=== PATIENT | female | born 1995 | race Caucasian/White ===

== ENCOUNTER → 2018-12-30 15:10 | Outpatient (CLI) | payer MEDICAID, SELFPAY ==
[2015-10-09 08:45] VITALS: BMI 25.7
[2019-01-04 15:49] LABS: HPV Reflexed? NOT INDICATED
== END ==
PROVIDERS: Visit Provider Obstetrics & Gynecology
DX: Z12.4 Encounter for screening for malignant neoplasm of cervix (principal)
CPT/HCPCS: 88175; G0145

== ENCOUNTER → 2021-04-30 17:41 | Outpatient (CLI) | payer MEDICAID, SELFPAY ==
[2021-04-08 08:26] VITALS: BMI 25.7
--- NOTE | 2021-04-30 17:41 | MRI_ITS ---
STUDY: MRI BRAIN WITH AND WITHOUT CONTRAST REASON FOR EXAM: Female, 25 years old. Migraine TECHNIQUE: Standardized multiplanar fat and water weighted pulse sequences were obtained. IV 11ml Dotarem was administered for the contrast portion of the examination. COMPARISON: 12/04/2012 FINDINGS: Normal size of the ventricles and extra-axial spaces for the patient''s age. Normal white matter tracts of the supratentorial brain. There are no white matter hyperintensities. Specifically, there are no focal areas of white matter gliosis which are occasionally associated with vasospastic migraine headaches. There is no evidence for recent intracranial ischemia or other cause of cytotoxic edema on diffusion weighted imaging (DWI). Normal T2* images of the brain without demonstrated susceptibility artifact. There is no demonstrated hemosiderin stain. Normal bilateral basal ganglia. Normal thalami. There is no extra-axial fluid accumulation. Normal flow voids within the major intracranial circulation suggesting patency by spin echo criteria. Normal venous enhancement. There is no enhancing intra-axial or extra-axial abnormality. Normal sella turcica, pituitary gland, infundibular stalk, optic chiasm and hypothalamus. Normal tectal plate and pineal gland. Normal midbrain, [place] and medulla. Normal cerebellum. Normal basal cisterns. Normal bilateral temporal bones. Normal bilateral internal auditory canals. No demonstrated orbital abnormality, within the constraints of a routine brain study. Normal visualized paranasal sinuses. Normal calvarium and skull base. Normal visualized soft tissue structures. Normal visualized upper cervical spine. MRI/Brain W/WO Contrast IMPRESSION: Normal unenhanced and enhanced MRI of the brain. Electronically Signed: Zackary Ayers MD at 22:13 EDT Tel , Service support ,
== END ==
PROVIDERS: Referring Provider Psychiatry & Neurology Neurology; Visit Provider Psychiatry & Neurology Neurology
DX: G43.909 Migraine, unspecified, not intractable, without status migrainosus (principal)
CPT/HCPCS: 70553; A9575

== ENCOUNTER → 2021-06-07 14:17 | Outpatient (CLI) | payer MEDICAID, SELFPAY ==
[2021-06-07 17:45] LABS: AST(SGOT) 15 U/L (15-37); Alanine Aminotransfer ALT/SGPT 17 U/L (13-56); Albumin, Serum 3.8 g/dL (3.2-5.0); Alkaline Phosphatase 48 U/L (45-117); Anion Gap 6 (5-15); BUN 12 mg/dL (7-18); BUN/Creat Ratio 15.9 RATIO (10-20); Calcium,Total 9.5 mg/dL (8.5-10.1); Chloride 105 mmol/L (98-107); Creatinine, Serum 0.76 mg/dL (0.55-1.02); EST Glomerular Filtration Rate 98 mL/min (>60); Est Glom Filt Rate - Afr Amer 118 mL/min (>60); Glucose 78 mg/dL (74-106); Potassium 3.8 mmol/L (3.5-5.1); Protein, Total 7.8 g/dL (6.4-8.2); Sodium Level 140 mmol/L (136-145)
== END ==
PROVIDERS: Referring Provider Nurse Practitioner Family; Visit Provider Nurse Practitioner Family
DX: G43.009 Migraine without aura, not intractable, without status migrainosus (principal)
CPT/HCPCS: 36415; 80053

== ENCOUNTER → 2022-08-05 | Outpatient (CLI) | payer MEDICAID, SELFPAY ==
[2022-08-08 04:07] LABS: Chlamydia By Nucleic Acid AMP Negative (Negative)
[2022-08-10 15:31] LABS: Gonococcus By Nucleic Acid AMP Negative (Negative)
[2022-08-14 16:22] LABS: HPV Reflexed? NOT INDICATED
== END | disposition home or self-care (01) ==
LOC: LABSPEC 16:37
PROVIDERS: Visit Provider Student in an Organized Health Care Education/Training Program
DX: Z11.3 Encounter for screening for infections with a predominantly sexual mode of transmission (principal); Z12.4 Encounter for screening for malignant neoplasm of cervix
CPT/HCPCS: 87491; 87591; 88175; G0145

== ENCOUNTER → 2022-11-21 | Outpatient (CLI) | payer MEDICAID, SELFPAY ==
[2022-11-21 15:46] LABS: Absolute Lymphocyte Count 1.88 X10^3/uL (0.83-4.51); Basophil# 0.03 X10^3/uL; Basophil% 0.4 % (0-1); Eosinophil# 0.02 X10^3/uL; Eosinophils% 0.3 % (0-5); Hematocrit 34.4 % (37-47); Hemoglobin 11.6 g/dL (12.0-15.0); Lymphocyte # 1.88 X10^3/ul (0.83-4.51); Lymphocyte % 25.3 % (19-41); Mean Corp Hgb Conc 33.7 g/dL (32-36); Monocyte# 0.43 X10^3/uL; Monocyte% 5.8 % (0-10); NRBC Flagged by Analyzer 0 % (0-5); Neutrophil # 5.02 X10^3/uL (2.7-7.7); Neutrophil % 67.7 % (47-70); Platelet Count 315 K/mm3 (150-450); RBC Distribution Width CV 12.6 % (11.6-14.6); White Blood Count 7.4 K/mm3 (4.4-11.0)
[2022-11-21 16:58] LABS: HIV - WCH Non-Reactive (Nonreactive); Hepatitis B Surface Antigen Non-Reactive (Nonreactive); Hepatitis C Antibody Non-Reactive (Nonreactive); Rubella IgG Reactive (Nonreactive); Syphilis Antibodies Non-reactive
[2022-11-23 11:18] LABS: V-Zoster IgG (Immunity) 192 index (Immune >165)
== END | disposition home or self-care (01) ==
LOC: WOBLAB 14:42
PROVIDERS: Visit Provider Student in an Organized Health Care Education/Training Program
DX: Z34.81 Encounter for supervision of other normal pregnancy, first trimester (principal)
CPT/HCPCS: 36415; 85025; 86703; 86762; 86780; 86787; 86803; 87086; 87340

== ENCOUNTER 2023-01-12 12:34 | Emergency (ER) | payer MEDICAID, SELFPAY ==
[2023-01-12 12:34] VITALS: BP 116/80; PULSE 103; RESP 16; TEMP 36.4; O2SAT 99; BMI 24.1
--- NOTE | 2023-01-12 14:14 | EDS_ITS ---
HPI History of Present Illness Chief Complaint: Shortness of Breath Informant: patient Onset/Context/Timing Onset: Days Context: gradual Timing: Continuous Quality: Positive for Dyspnea on exertion; Negative for PND Current Severity: Mild Maximum Severity: Mild Worsened by: Exertion and Coughing Relieved by: Rest Associated Symptoms cough and green sputum Chest Pain: Positive for None Narrative Narrative: 27-year-old female male G2, P1 Ab0 about a week 18 weeks due June 11. States she has had exertional shortness of breath with a cough of green sputum since Thursday. She denies any chest pain. No hemoptysis. No calf pain. She has trace edema both feet bilaterally. No hemoptysis. No history of DVT or PE. No recent travel, surgery or immobilization. PE Risk Factors: Negative for Cancer, OCP + Smoking + > 35, Prior DVT or PE, Recent immobilization, Recent surgery or Recent travel Prior similar symptoms: No Recent Illness/Hospitalization: No PFSH PFSH Medical History Acid reflux Asthma Benign paroxysmal positional vertigo Frequent headaches High cholesterol Migraine Home Medications ondansetron HCl 4 mg tablet 4 mg PO TID PRN nausea and vomiting #90 tabs 05/22/22 [Rx Last Taken Unknown] famotidine 20 mg tablet 20 mg PO BID 01/12/23 [History Last Taken Unknown] Allergy/AdvReac Type Severity Reaction Status Date / Time No Known Allergies Allergy Verified 01/12/23 12:37 Family History Mother Anxiety Depression Father Drug abuse Social History Smoking Status: Former smoker how long ago did patient quit smokin alcohol intake: never substance use type: does not use what type of physical activity do you participate in: walking and running frequency: 5-6 times per week gwen/lutheran: None seatbelt use: always ROS ROS ED ROS Narrative Shortness of breath. Cough. Review of Systems ROS Unobtainable: Denies due to encephalopathy Constitutional Constitutional ED: Denies chills or fever(s) Eyes Eyes: Denies blurry vision ENT ENT ED: Denies ear pain or rhinorrhea Cardiovascular Cardiovascular: Denies chest pain, orthopnea, palpitations or paroxysmal nocturnal dyspnea Respiratory/Chest Respiratory/Chest: Reports cough, dyspnea, dyspnea on exertion and sputum; Denies orthopnea or paroxysmal nocturnal dyspnea Gastrointestinal Gastrointestinal: Denies abdominal pain Genitourinary Genitourinary ED: Denies dysuria or hematuria Musculoskeletal Musculoskeletal: Denies arthralgias Integumentary Denies abscess Neurologic Neurologic: Denies headache(s) Psychiatric Psychiatric: Denies anxiety Endocrine Endocrinology: Denies cold intolerance Hematologic/Lymphatic Hematologic/Lymphatic: Denies easy bleeding Allergic/Immunologic Allergic/Immunologic ED: Denies mouth swelling or tongue swelling EXAM Physical Exam Narrative Exam Narrative: 27-year-old female no acute distress vital signs stable afebrile. Pulse ox 99% on room air no signs hypoxia. She is resting in bed appears comfortable. H EENT exam unremarkable. Neck nontender JVD. Lungs clear to auscultation. Heart regular rhythm rate about 100 no murmur. Abdomen soft nontender gravid uterus. Moving all 4 extremities. Calves nontender without edema or cords. Neurologically she is awake alert with no focal motor deficits benign exam Const Vital Signs: 01/12/23 12:34 01/12/23 14:15 01/12/23 15:30 Temperature 97.5 F L Temperature Source Temporal Pulse Rate 103 H Respiratory Rate 16 Respiratory Effort Normal Non-Labored Respiratory Depth Normal Respiratory Pattern Normal Blood Pressure 116/80 Blood Pressure Mean 92 Pulse Ox 99 Oxygen Delivery Method Room Air Room Air Room Air Positive well nourished and well developed; Negative for cachectic, contractures or unkempt General Appearance ED: well developed and NAD; Negative for unkempt, cachectic, contractures or pallor Nutritional Appearance: Negative for cachectic HEENT Reports moist mucous membranes atraumatic; Negative for trauma or tenderness Eyes PERRL and EOMs intact bilaterally General Eye ED: Negative for pale conjunctiva, scleral icterus or other Neck no lymphadenopathy, supple, no meningeal signs and no JVD General: Negative for tenderness Lymph Lymphatic: Negative for other Chest Wall Chest: Negative for other Resp normal respiratory effort and clear to auscultation bilaterally Effort and Inspection: Negative for pain with movement Auscultation: Negative for rales, rhonchi or wheezes Cardio regular rate, regular rhythm, S1 normal heart sound, S2 normal heart sound and no murmurs Rate: Negative for bradycardia or tachycardic Rhythm: Negative for abnormal rhythm GI non-tender, non-distended and no masses Inspection: Negative for other Auscultation: normoactive bowel sounds Palpation: soft; Negative for tender or guarding Back/Spine no CVA tenderness General Back: Negative for CVA tenderness or tenderness Extremity normal to inspection General Extremety ED: Negative for edema or tenderness General Extremity: Negative for edema Neuro oriented x3 and CN's II-XII intact bilaterally Sensorium / Orientation: alert, oriented to person, oriented to place and oriented to time; Negative for orientation impaired, confused, lethargic or stuporous Speech: speech normal Motor Exam: strength 5/5 throughout Psych mental status grossly normal Appearance: Negative for unkempt Attitude: No agitated Mood & Affect: Negative for depressed Thought Process: normal thought process Skin no wounds and skin turgor normal General Skin Exam: Negative for jaundice or pallor Lesions: no lesions Rashes: no rashes Trauma: Negative for abrasion or laceration MDM MDM MDM Narrative Medical decision making narrative: 27-year-old female with exertional shortness of breath. This may be from anemia of . Could be from a URI with a cough and green sputum. Clinically does not appear to be a DVT or PE but she does have risk factors due to her . She undergo a cardiac work-up and depending on the test results to determine further testing. I suspect she will be able to be discharged home. Clinically I do not suspect this to be cardiac in a very low suspicion for PE. Repeat exam patient doing well at 4:40 PM. We went over all of her test results. She is anemia . It may be causing her shortness of breath along with a viral URI. She has no pneumonia. No PE. No signs of this being cardiac in etiology. She will be discharged home with outpatient follow-up with [facility] TECHNICIAN. History & Record Review Discussion w/independent historian: Patient Additional record(s) reviewed:: Prior inpatient record, Prior outpatient record, Prior ED visit and Prior labs Lab Data Attestation: I reviewed the patient's lab results. Lab results narrative: CBC shows white count 5.8. H&H 10.1 and 31.3 which is most likely anemia associated with the . Platelets 249. Electrolytes show a gap of 6 normal BUN and creatinine. Glucose of 83. Her D-dimer is elevated 1.77. For that reason a CTA of her chest to be obtained. Chest x-ray is unremarkable. EKG is a sinus rhythm rate 84 with no acute abnormalities. Labs: Laboratory Results - last 24 hr 01/12/23 01/12/23 01/12/23 14:30 14:30 14:30 WBC 5.8 RBC 3.50 L Hgb 10.1 L Hct 31.3 L MCV 89.4 MCH 28.9 MCHC 32.3 RDW Std Deviation 45.2 H RDW Coeff of Yahaira 13.9 Plt Count 249 MPV 9.5 Immature Gran % (Auto) 0.500 Neut % (Auto) 67.2 Lymph % (Auto) 25.9 [place] % (Auto) 5.8 Eos % (Auto) 0.3 Baso % (Auto) 0.3 Absolute Neuts (auto) 3.9 Absolute Lymphs (auto) 1.51 Nucleated RBC % 0 D-Dimer Quant (PE/DVT) 1.77 H* Sodium 138 Potassium 4.0 Chloride 107 Carbon Dioxide 25.0 Anion Gap 6 BUN 8 Creatinine 0.49 L Estim Creat Clear Calc 135.19 Est GFR (MDRD) Af Amer 191 Est GFR (MDRD) Non-Af 158 BUN/Creatinine Ratio 16.2 Glucose 83 Calcium 9.1 Radiography Chest X-Ray - ED: 1 View, Read by ED Physician, Read by Radiologist, Heart, Lungs, Mediastinum, Bony Structures, No Acute Disease and Chronic Changes Diagnostic Testing: Clinical Impression(s) from Imaging Studies Chest X-Ray 01/12/23 14:35 IMPRESSION: No radiographic evidence of acute cardiopulmonary disease. Electronically Signed: Gerardo Hannah MD at 14:48 EDT , Chest CTA 01/12/23 15:23 IMPRESSION: Negative CTA chest. Electronically Signed: Gerardo Hannah MD at 16:16 EDT , Chest x-ray, portable, single view interpreted both by myself and the radiologist shows no acute abnormality. Normal cardiac silhouette. Normal mediastinum. Normal lung steinberg. CTA chest negative. Rhythm Strip Rhythm Strip: Sinus Rhythm Rate: 84 Ectopy: None EKG Initial EKG: Attestation: I personally reviewed and interpreted this EKG as follows: Interpretation: Sinus Rhythm and No Acute Injury Pattern Comments: Normal sinus rhythm rate 84 no acute signs of NV or ischemia. Prior EKG tracings: not available for review Discharge Plan Triage Chief Complaint: Shortness of Breath ED Provider: Andrés Jacob Dx/Rx/DC Orders Clinical Impression: Acute dyspnea, Anemia during , Second trimester , Viral URI Instructions: Anemia During , ED Dyspnea, ED URI, Viral, No Abx (Adult) Prescriptions: No Action ondansetron HCl 4 mg tablet 4 mg PO TID PRN (Reason: nausea and vomiting) Qty: 90 0RF famotidine 20 mg tablet 20 mg PO BID Label Comments: TAKE 1 TABLET BY MOUTH TWICE A DAY Primary Care Provider: Care Physician,No Primary Referrals: Mariah Prajapati DO [Med Staff - Active Staff] - 1 Week if not improving Care Physician,No Primary [Primary Care Provider] - Activity Restrictions/Additional Instructions: Urine Shortness of breath is most likely from a viral respiratory infection along with . Her anemia from being secondary menstrual is not that bad with a hemoglobin 10.1. Follow-up with your [facility] TECHNICIAN as scheduled as needed. There is no blood clot and no pneumonia. Disposition Disposition: Home, Self Care
--- NOTE | 2023-01-12 14:15 | EKG12_ITS ---
Test Reason : SOB Blood Pressure : / mmHG Vent. Rate : 084 BPM Atrial Rate : 084 BPM P-R Int : 154 ms QRS Dur : 076 ms QT Int : 390 ms P-R-T Axes : 049 053 022 degrees QTc Int : 460 ms Normal sinus rhythm Normal ECG Confirmed by ABISAI ALVARADO, GINGER ([id number]), commissioning editor REFUGIO CHO ([id number]) on 01/14/2023 2:09:41 PM Referred By: Confirmed By:GINGER BARONE MD
--- NOTE | 2023-01-12 14:35 | RAD_ITS ---
EXAM: XR CHEST, 1 VIEW CLINICAL INDICATION: . Please shield abd preganant HARD TO BREATHE SINCE THURSDAY , PT IS PREG TECHNIQUE: Frontal view of the chest. COMPARISON: No relevant prior studies available. FINDINGS: LUNGS AND PLEURAL SPACES: Unremarkable. No consolidation or edema. No pneumothorax. No effusion. HEART: Unremarkable. Cardiac silhouette not enlarged. MEDIASTINUM: Central airways and mediastinal contour are unremarkable. BONES/JOINTS: Unremarkable. SOFT TISSUES: Unremarkable. RAD/Chest 1 View (Portable) IMPRESSION: No radiographic evidence of acute cardiopulmonary disease. Electronically Signed: Gerardo Hannah MD at 14:48 EDT ,
[2023-01-12 14:39] LABS: Absolute Lymphocyte Count 1.51 X10^3/uL (0.83-4.51); Absolute Neutrophil Count 3.9 X10^3/uL (2.0-7.7); Basophil# 0.02 X10^3/uL; Basophil% 0.3 % (0-1); Eosinophil# 0.02 X10^3/uL; Eosinophils% 0.3 % (0-5); Hematocrit 31.3 % (37-47); Hemoglobin 10.1 g/dL (12.0-15.0); Lymphocyte # 1.51 X10^3/ul (0.83-4.51); Lymphocyte % 25.9 % (19-41); Mean Corp Hgb Conc 32.3 g/dL (32-36); Mean Corpuscular Hgb 28.9 pg (27.0-32.0); Mean Corpuscular Volume 89.4 fL (81-99); Mean Platelet Vol. 9.5 fl (6.2-12.0); Monocyte# 0.34 X10^3/uL; Monocyte% 5.8 % (0-10); NRBC Flagged by Analyzer 0 % (0-5); Neutrophil % 67.2 % (47-70); Platelet Count 249 K/mm3 (150-450); RBC Distribution Width CV 13.9 % (11.6-14.6); RBC Distribution Width SD 45.2 fl (35.1-43.9); White Blood Count 5.8 K/mm3 (4.4-11.0)
[2023-01-12 14:52] LABS: Anion Gap 6 (5-15); BUN 8 mg/dL (7-18); BUN/Creat Ratio 16.2 RATIO (10-20); Calcium,Total 9.1 mg/dL (8.5-10.1); Chloride 107 mmol/L (98-107); Creatinine, Serum 0.49 mg/dL (0.55-1.02); EST Glomerular Filtration Rate 158 mL/min (>60); Est Glom Filt Rate - Afr Amer 191 mL/min (>60); Estimated Creatinine Clearance 135.19 ml/min; Glucose 83 mg/dL (74-106); Sodium Level 138 mmol/L (136-145)
[2023-01-12 15:00] LABS: D-Dimer Quantitative (DVT/PE) 1.77 FEU/ug/m (0.27-0.49)
--- NOTE | 2023-01-12 15:23 | CT_ITS ---
EXAM: CT ANGIOGRAPHY CHEST WITHOUT AND WITH INTRAVENOUS CONTRAST CLINICAL INDICATION: dyspnea. elevated d-dimer. at 18 weeks. TECHNIQUE: Helically acquired angiography images were obtained of the chest without and with intravenous contrast. This CT exam was performed using one or more of the following dose reduction techniques: automated exposure control, adjustment of the mA and/or kV according to patient size, and/or use of iterative reconstruction technique. MIP reconstructed images were created and reviewed. CONTRAST: IV 75mL [id number]-370 RADIATION DOSE: CTDIvol = 7.11 mGy, DLP = 204.06 mGy-cm COMPARISON: No relevant prior studies available. FINDINGS: PULMONARY ARTERIES: Unremarkable. Normal in caliber. No evidence of pulmonary embolism. AORTA: Unremarkable. Normal in caliber. No evidence of dissection. GREAT VESSELS OF AORTIC ARCH: Unremarkable. Normal in caliber. No evidence of dissection. LUNGS AND PLEURAL SPACES: Unremarkable. No mass. No consolidation or edema. No pleural effusion or thickening. No pneumothorax. HEART: Unremarkable. Heart size is normal. No pericardial effusion. No significant coronary artery calcifications. MEDIASTINUM: Unremarkable. No mediastinal or hilar adenopathy. Esophagus is unremarkable. No hiatal hernia. THYROID: Unremarkable. No thyroid lesions. BONES/JOINTS: Unremarkable. No suspicious lytic or blastic abnormality. CT/CTA Chest W/WO Contrast IMPRESSION: Negative CTA chest. Electronically Signed: Gerardo Hannah MD at 16:16 EDT ,
[2023-01-12 16:20] VITALS: PULSE 86; RESP 17; O2SAT 100
--- NOTE | 2023-01-12 16:31 | CM.ED ---
Social Work Note Referral Source: case find Referral Reason: no PCP SW met with patient and introduced herself and role as [facility] Child Advocate. Patient lying on hospital bed and agreeable to speak with SW with guest present. SW inquired about patient's insurance and current PCP. Patient verified insurance and reports no current PCP. SW provided patient with a list of local PCPs in network with patient's insurance and accepting new patients. Patient was receptive towards list and voiced no other needs. SW remains available if needs arise. Aurelia Holly EGGS INSPECTOR, MAGAN
== END 2023-01-12 16:55 | disposition home or self-care (01) ==
PROVIDERS: Emergency Provider Emergency Medicine; Visit Provider Emergency Medicine
DX: O99.512 Diseases of the respiratory system complicating pregnancy, second trimester (principal); Z87.891 Personal history of nicotine dependence; E78.00 Pure hypercholesterolemia, unspecified; J06.9 Acute upper respiratory infection, unspecified; J45.909 Unspecified asthma, uncomplicated; O99.280 Endocrine, nutritional and metabolic diseases complicating pregnancy, unspecified trimester; O99.012 Anemia complicating pregnancy, second trimester; Z3A.18 18 weeks gestation of pregnancy
CPT/HCPCS: 71045; 71275; 80048; 85025; 85379; 93005; 99283; Q9967; A4216

== ENCOUNTER 2023-11-01 18:30 | Emergency (ER) | payer MEDICAID, SELFPAY ==
[2023-11-01 18:31] VITALS: BP 125/83; PULSE 91; RESP 20; TEMP 37; O2SAT 97; BMI 24.6
--- NOTE | 2023-11-01 18:53 | EDS_ITS ---
HPI History of Present Illness Chief Complaint: Chest Other Informant: patient Narrative Narrative: 28-year-old female presenting to the emergency room for chest pain. Patient states that last Thursday she began to not feel well and by Thursday had fever. She went to an urgent care on Thursday was told she had a viral infection. She returned on with continued fever and not feeling well. She states that she tested positive for influenza B was placed on Augmentin for nasal swelling . She states she has had some nausea but now has developed pain lower bilateral chest into the back that is worse with movement cough and deep breathing. She states that she takes control but is not a smoker. No recent surgeries trips or known clotting disorders. No prior DVT or PE. She notes some phlegm production with cough but states occasionally feels like it may come from the chest but also from the upper airway. [facility] Medical History Acid reflux Asthma Benign paroxysmal positional vertigo De Quervain's tenosynovitis, right Frequent headaches High cholesterol Migraine Right carpal tunnel syndrome Home Medications amoxicillin 875 mg-potassium clavulanate 125 mg tablet 1 tab PO BID 11/01/23 [History Last Taken Unknown] norgestimate 0.25 mg-ethinyl estradiol 35 mcg tablet (Sprintec (28)) 1 tab PO DAILY 11/01/23 [History Last Taken Unknown] Allergy/AdvReac Type Severity Reaction Status Date / Time No Known Allergies Allergy Verified 11/01/23 18:31 Family History Mother Anxiety Depression Father Drug abuse Social History Smoking Status: Former smoker how long ago did patient quit smokin alcohol intake: never substance use type: does not use what type of physical activity do you participate in: walking and running frequency: 5-6 times per week gwen/religious: None seatbelt use: always ROS ROS ED Constitutional Constitutional ED: Reports chills and fever(s); Denies weight loss Eyes Eyes: Denies change in vision or diplopia ENT ENT ED: Reports rhinorrhea and other Details: Nasal congestion ; Denies ear pain or sore throat Cardiovascular Cardiovascular: Reports chest pain; Denies orthopnea, palpitations or racing heartbeat Respiratory/Chest Respiratory/Chest: Reports cough; Denies dyspnea or orthopnea Gastrointestinal Gastrointestinal: Denies abdominal pain, diarrhea, nausea or vomiting Genitourinary Genitourinary ED: Denies dysuria, hematuria or urinary frequency Musculoskeletal Musculoskeletal: Reports arthralgias; Denies myalgias Integumentary Denies abscess or rash Neurologic Neurologic: Denies headache(s) or weakness Psychiatric Psychiatric: Denies anxiety, depression, suicidal ideation or suicidal thoughts Endocrine Endocrinology: Denies polydipsia, polyphagia or polyuria Allergic/Immunologic Allergic/Immunologic ED: Denies mouth swelling, tongue swelling or urticaria EXAM Physical Exam Const Vital Signs: 11/01/23 18:31 11/01/23 19:16 11/01/23 19:39 Temperature 98.6 F Temperature Source Temporal Pulse Rate 91 89 Respiratory Rate 20 H 14 Respiratory Effort Normal Non-Labored Respiratory Depth Normal Respiratory Pattern Normal Blood Pressure 125/83 H 127/83 H Blood Pressure Mean 97 97 Pulse Ox 97 98 Oxygen Delivery Method Room Air Room Air Positive well nourished and well developed General Appearance ED: well developed HEENT Reports normocephalic, head/scalp atraumatic and moist mucous membranes HEENT Narrative: Bifurcated uvula no oropharyngeal erythema. No evidence of peritonsillar or retropharyngeal abscess. Eyes PERRL and EOMs intact bilaterally Neck no lymphadenopathy, supple and no JVD Resp normal respiratory effort and clear to auscultation bilaterally Cardio regular rate, regular rhythm and no murmurs GI normal to inspection, nondistended, normoactive bowel sounds and non-tender Palpation: soft Back/Spine no CVA tenderness and normal ROM Extremity normal to inspection General Extremety ED: Negative for edema General Extremity: Negative for edema Neuro oriented x3 and CN's II-XII intact bilaterally Sensorium / Orientation: alert Motor Exam: strength 5/5 throughout Psych mental status grossly normal Mood & Affect: Negative for depressed or tearful Skin no rashes or lesions noted and no wounds MDM MDM MDM Narrative Medical decision making narrative: Patient's D-dimer was obtained given her pleuritic chest pain. This returns positive at 1.21. Therefore a CTA of the chest was obtained which does not demonstrate pulmonary embolism or dissection. Clinically the patient has tested positive for influenza B and I think she most likely has some pleurisy versus chest wall strain from coughing. Recommend continued hydration Tylenol and/or Motrin. Return if worsening or concerns History & Record Review Discussion w/independent historian: Patient Lab Data Attestation: I reviewed the patient's lab results. Labs: Laboratory Results - last 24 hr 11/01/23 19:05 D-Dimer Quant (PE/DVT) 1.21 H* Radiography Diagnostic Testing: Clinical Impression(s) from Imaging Studies Chest CTA 11/01/23 19:47 IMPRESSION: (NOT LISTED IN ORDER OF SIGNIFICANCE) No demonstrated pulmonary embolism or arterial dissection. Electronically Signed: Gerardo Hannah MD at 20:57 EDT , Discharge Plan Triage Chief Complaint: Chest Other Other Complaint: Shortness of Breath ED Provider: Isacc Barr Dx/Rx/DC Orders Clinical Impression: Influenza B, Chest pain Instructions: The Flu (Influenza), ED Pleurisy Prescriptions: No Action norgestimate-ethinyl estradiol [Sprintec (28)] 0.25-35 mg-mcg tablet 1 tab PO DAILY amoxicillin-pot clavulanate 875-125 mg tablet 1 tab PO BID Primary Care Provider: Care Physician,No Primary Referrals: Care Physician,No Primary [Primary Care Provider] - Activity Restrictions/Additional Instructions: Drink plenty of fluids to stay hydrated. Tylenol and/or Motrin to control pain and fever. Continue to monitor breathing return if worsening or any concerns Disposition Disposition: Home, Self Care
--- OUTSIDE RECORDS SUMMARY | 2023-11-01 19:17 | XMS RPT_ITS | CCD ---
Author Name Unknown Address [facility] [address] [place] [address] Organization [facility] Care Team Providers Care Mimeographer Name Role Phone LISA CISNEROS, EMILIANO Primary Care Physician Krystle Manriquez CNP Primary Care Provider Krystle Manriquez CNP Primary Care Provider Krystle Manriquez CNP Primary Care Provider ASHKAN WALTERS MD Admitting Unavailable LISA CISNEROS [facility] Primary Care ASHKAN Mazariegos MD Attending Unavailable ASHKAN WALTERS MD Attending Unavailable LISA CISNEROS, [facility] Primary Care Christy CISNEROS, [facility] Primary Care ASHKAN Mazariegos MD Attending Unavailable LISA CISNEROS, [facility] Primary Care ASHKAN Mazariegos MD Consulting Unavailable ASHKAN WALTERS MD Attending Unavailable ASHKAN WALTERS MD Attending Unavailable LISA CISNEROS, [facility] Primary [facility] ASHKAN Mazariegos MD Consulting Unavailable KRYSTLE MANRIQUEZ [facility] Primary [facility] Un[facility] Primary [facility] Primary [facility] Unavailable Medications Current Medications Medication Drug Class(es) Dates Sig (Normalized) Sig (Original) acetaminophen 325 mg / HYDROcodone bitartrate 5 mg oral tablet (1 source) Opioid Agonist Start: 10-19-2021 End: 10-21-2021 take 1 tablet by mouth every six hours as needed for pain [place] 325- 5 mg oral tablet Dose = 1 tab(s), Oral, q6h, PRN as needed for pain, # 10 tab(s), 0 Refill(s), Cephalgia, 56.8 Start Date: 10/19/21 Stop Date: 10/21/21 Status: Ordered amoxicillin 500 mg oral capsule (2 sources) Penicillin-class Antibacterial Start: 10-05-2023 End: 10-15-2023 take 1 capsule by mouth twice daily amoxicillin (AMOXIL) 500 mg capsule Take 1 capsule by mouth two times a day for 10 days. 20 capsule 0 10/05/2023 10/15/2023 Active Completed/Discontinued Medications Medication Drug Class(es) Dates Sig (Normalized) Sig (Original) [id number] 200 actuat albuterol 0.09 mg/actuat metered dose inhaler (2 sources) beta2-Adrenergic Agonist Start: 10-21-2021 End: 10-22-2022 take 2 puff(s) by inhalation every four hours as needed for wheezing albuterol HFA (PROVENTIL HFA, VENTOLIN HFA) 90 mcg/actuation inhaler Indications: Wheezing Inhale 2 Puffs as instructed every 4 hours as needed for wheezing/shortness of breath. 1 Inhaler 0 10/21/2021 10/22/2022 Discontinued Problems Active Problems Problem Classification Problem Date Documented Da te Episodic/Chronic Fever of unknown origin (1 source) Fever; Translations: [Fever, unspecified] 10-31-2023 Episodic Headache; including migraine (4 sources) Migraine 12-14-2013 Chronic Headache; including migraine (1 source) Headache; Translations: [Headache, unspecified] Onset: 10-19-2021 Episodic Mood disorders (5 sources) Depression 12-14-2013 Chronic Noninfectious gastroenteritis (1 source) Gastroenteritis; Translations: [Noninfective gastroenteritis and colitis, unspecified] Episodic Other gastrointestinal disorders (1 source) Diarrhea; Translations: [Diarrhea, unspecified] Onset: 08-17-2021 Episodic Other and delivery including normal (7 sources) ; Translations: [Second trimester ] Onset: 11-22-2022 03-16-2023 Episodic Other upper respiratory infections (2 sources) Chronic sinusitis, unspecified; Translations: [Unspecified sinusitis (chronic)] 07-23-2023 Chronic Other upper respiratory infections (6 sources) Acute upper respiratory infection; Translations: [Acute upper respiratory infection, unspecified] Episodic Otitis media and related conditions (1 source) Otitis media of bilateral ears; Translations: [Otitis media, unspecified, bilateral] Episodic Past or Other Problems Problem Classification Problem Date Documented Da te Episodic/Chronic NEGATED: Highlighted row has been ruled out!Unclassified (2 sources) No known active problems 05-23-2021 Results Test Name Value Interpretation Reference Range Facil ity Vital Signs Date Time Vital Sign Value Performing Clinician Facility 10-31-2023 08:48-0500 Body temperature 98.4 [degF] Luna Praisler-Wood PARAMEDIC SUPERVISOR.COMPUTER SECURITY MANAGER Work Phone: [facility] 10-31-2023 08:48-0500 Body weight 62.8 kg Luna Praisler-Wood PARAMEDIC SUPERVISOR.COMPUTER SECURITY MANAGER Work Phone: [facility] 10-31-2023 08:48-0500 Diastolic blood pressure 64 mm[Hg] Luna Praisler-Wood PARAMEDIC SUPERVISOR.COMPUTER SECURITY MANAGER Work Phone: [facility] 10-31-2023 08:48-0500 Heart rate 102 /min Luna Praisler-Wood PARAMEDIC SUPERVISOR.COMPUTER SECURITY MANAGER Work Phone: [facility] 10-31-2023 08:48-0500 Respiratory rate 18 /min Luna Praisler-Wood PARAMEDIC SUPERVISOR.COMPUTER SECURITY MANAGER Work Phone: [facility] 10-31-2023 08:48-0500 SaO2% (BldA) [Mass fraction] 98 % Luna Praisler-Wood PARAMEDIC SUPERVISOR.COMPUTER SECURITY MANAGER Work Phone: [facility] 10-31-2023 08:48-0500 Systolic blood pressure 108 mm[Hg] Luna Praisler-Wood PARAMEDIC SUPERVISOR.COMPUTER SECURITY MANAGER Work Phone: [facility] 10-05-2023 09:15-0500 Body temperature 98.71 [degF] Kwaku Patel PA Work Phone: [facility] 10-05-2023 09:15-0500 Body weight 63.5 kg Kwaku VERGARA Work Phone: [facility] 10-05-2023 09:15-0500 Diastolic blood pressure 78 mm[Hg] Krislyn Aberegg PA Work Phone: [facility] 10-05-2023 09:15-0500 Heart rate 85 /min Krislyn Aberegg PA Work Phone: [facility] 10-05-2023 09:15-0500 Respiratory rate 21 /min Krislyn Aberegg PA Work Phone: [facility] 10-05-2023 09:15-0500 SaO2% (BldA) [Mass fraction] 98 % Krislyn Aberegg PA Work Phone: [facility] 10-05-2023 09:15-0500 Systolic blood pressure 104 mm[Hg] Krislyn Aberegg PA Work Phone: [facility] 07-23-2023 12:07-0500 Body temperature 98.2 [degF] Mikki Kramer PARAMEDIC SUPERVISOR.COMPUTER SECURITY MANAGER Work Phone: [facility] 07-23-2023 12:07-0500 Body weight 64.68 kg Mikki Kramer PARAMEDIC SUPERVISOR.COMPUTER SECURITY MANAGER Work Phone: [facility] 07-23-2023 12:07-0500 Diastolic blood pressure 77 mm[Hg] Mikki Kramer PARAMEDIC SUPERVISOR.COMPUTER SECURITY MANAGER Work Phone: [facility] 07-23-2023 12:07-0500 Heart rate 85 /min Mikki Kramer PARAMEDIC SUPERVISOR.COMPUTER SECURITY MANAGER Work Phone: [facility] 07-23-2023 12:07-0500 Respiratory rate 18 /min Mikki Kramer PARAMEDIC SUPERVISOR.COMPUTER SECURITY MANAGER Work Phone: [facility] 07-23-2023 12:07-0500 SaO2% (BldA) [Mass fraction] 96 % Mikki Kramer PARAMEDIC SUPERVISOR.COMPUTER SECURITY MANAGER Work Phone: [facility] 07-23-2023 12:07-0500 Systolic blood pressure 112 mm[Hg] Mikki Kramer PARAMEDIC SUPERVISOR.COMPUTER SECURITY MANAGER Work Phone: [facility] 06-05-2023 08:38-0400 Body temperature 98.78 [degF] ASHKAN WALTERS MD [facility] 06-05-2023 08:38-0400 Diastolic Blood Pressure Non-Invasive 64 1 ASHKAN WALTERS MD [facility] 06-05-2023 08:38-0400 Heart rate 93 /min ASHKAN WALTERS MD [facility] 06-05-2023 08:38-0400 Respiratory rate 16 /min ASHKAN WALTERS MD [facility] 06-05-2023 08:38-0400 Systolic Blood Pressure Non-Invasive 105 1 ASHKAN WALTERS MD [facility] 06-04-2023 23:41-0400 Body temperature 97.88 [degF] ASHKAN WALTERS MD [facility] 06-04-2023 23:41-0400 Diastolic Blood Pressure Non-Invasive 70 1 ASHKAN WALTERS MD [facility] 06-04-2023 23:41-0400 Heart rate 82 /min ASHKAN WALTERS MD [facility] 06-04-2023 23:41-0400 Respiratory rate 18 /min ASHKAN WALTERS MD [facility] 06-04-2023 23:41-0400 Systolic Blood Pressure Non-Invasive 107 1 ASHKAN WALTERS MD [facility] 06-04-2023 20:21-0400 Body temperature 98.78 [degF] ASHKAN WALTERS MD [facility] 06-04-2023 16:03-0400 Diastolic Blood Pressure Non-Invasive 74 1 ASHKAN WALTERS MD [facility] 06-04-2023 16:03-0400 Heart rate 83 /min ASHKAN WALTERS MD [facility] 06-04-2023 16:03-0400 Respiratory rate 16 /min ASHKAN WALTERS MD [facility] 06-04-2023 16:03-0400 Systolic Blood Pressure Non-Invasive 125 1 ASHKAN WALTERS MD [facility] 06-04-2023 06:04-0400 Body height 155 cm ASHKAN WALTERS MD [facility] 06-04-2023 06:04-0400 Body weight 72.7 kg ASHKAN WALTERS MD [facility] 06-04-2023 06:04-0400 Body weight 30.26 kg/m2 ASHKAN WALTERS MD [facility] 04-23-2023 08:48-0400 Body temperature 98.01 [degF] Qunin Pendlebury PARAMEDIC SUPERVISOR.COMPUTER SECURITY MANAGER Work Phone: [facility] 04-23-2023 08:48-0400 Body weight 73.57 kg Quinn John PARAMEDIC SUPERVISOR.COMPUTER SECURITY MANAGER Work Phone: [facility] 04-23-2023 08:48-0400 Diastolic blood pressure 76 mm[Hg] Quinn Pendlebury PARAMEDIC SUPERVISOR.COMPUTER SECURITY MANAGER Work Phone: [facility] 04-23-2023 08:48-0400 Heart rate 108 /min Quinn John PARAMEDIC SUPERVISOR.COMPUTER SECURITY MANAGER Work Phone: [facility] 04-23-2023 08:48-0400 Respiratory rate 18 /min Quinn John PARAMEDIC SUPERVISOR.COMPUTER SECURITY MANAGER Work Phone: [facility] 04-23-2023 08:48-0400 SaO2% (BldA) [Mass fraction] 98 % Quinn Poseyewa PARAMEDIC SUPERVISOR.COMPUTER SECURITY MANAGER Work Phone: [facility] 04-23-2023 08:48-0400 Systolic blood pressure 117 mm[Hg] Quinn Balessana PARAMEDIC SUPERVISOR.COMPUTER SECURITY MANAGER Work Phone: [facility] 12-05-2022 09:39-0400 Body temperature 98.1 [degF] Mikki Kramer PARAMEDIC SUPERVISOR.COMPUTER SECURITY MANAGER Work Phone: [facility] 12-05-2022 09:39-0400 Body weight 60.78 kg Mikki Kramer PARAMEDIC SUPERVISOR.COMPUTER SECURITY MANAGER Work Phone: [facility] 12-05-2022 09:39-0400 Diastolic blood pressure 68 mm[Hg] Mikki Kramer PARAMEDIC SUPERVISOR.COMPUTER SECURITY MANAGER Work Phone: [facility] 12-05-2022 09:39-0400 Heart rate 102 /min Mikki Kramer PARAMEDIC SUPERVISOR.COMPUTER SECURITY MANAGER Work Phone: [facility] 12-05-2022 09:39-0400 Respiratory rate 18 /min Mikki Kramer PARAMEDIC SUPERVISOR.COMPUTER SECURITY MANAGER Work Phone: [facility] 12-05-2022 09:39-0400 SaO2% (BldA) [Mass fraction] 99 % Mikki Kramer PARAMEDIC SUPERVISOR.COMPUTER SECURITY MANAGER Work Phone: [facility] 12-05-2022 09:39-0400 Systolic blood pressure 120 mm[Hg] Mikki Kramer PARAMEDIC SUPERVISOR.COMPUTER SECURITY MANAGER Work Phone: [facility] 10-22-2022 08:36-0500 Body temperature 98.1 [degF] John Villalobos MD Work Phone: [facility] 10-22-2022 08:36-0500 Body weight 63.96 kg John Villalobos MD Work Phone: [facility] 10-22-2022 08:36-0500 Diastolic blood pressure 64 mm[Hg] John Villalobos MD Work Phone: [facility] 10-22-2022 08:36-0500 Heart rate 73 /min John Villalobos MD Work Phone: [facility] 10-22-2022 08:36-0500 Respiratory rate 18 /min John Villalobos MD Work Phone: [facility] 10-22-2022 08:36-0500 SaO2% (BldA) [Mass fraction] 99 % John Villalobos MD Work Phone: [facility] 10-22-2022 08:36-0500 Systolic blood pressure 102 mm[Hg] John Villalobos MD Work Phone: [facility] 03-22-2022 13:43-0400 Body temperature 96.8 [degF] John Villalobos MD Work Phone: [facility] 03-22-2022 13:43-0400 Body weight 62.23 kg John Villalobos MD Work Phone: [facility] 03-22-2022 13:43-0400 Diastolic blood pressure 72 mm[Hg] John Villalobos MD Work Phone: [facility] 03-22-2022 13:43-0400 Heart rate 79 /min John Villalobos MD Work Phone: [facility] 03-22-2022 13:43-0400 Respiratory rate 20 /min John Villalobos MD Work Phone: [facility] 03-22-2022 13:43-0400 SaO2% (BldA) [Mass fraction] 99 % John Villalobos MD Work Phone: [facility] 03-22-2022 13:43-0400 Systolic blood pressure 118 mm[Hg] John Villalobos MD Work Phone: [facility] 10-19-2021 13:57-0500 Body temperature 98.42 [degF] EZRA HOOVER MD [facility] 10-19-2021 13:57-0500 Diastolic blood pressure 77 mm[Hg] EZRA HOOVER MD [facility] 10-19-2021 13:57-0500 Heart rate 108 /min EZRA HOOVER MD [facility] 10-19-2021 13:57-0500 Respiratory rate 18 /min EZRA HOOVER MD [facility] 10-19-2021 13:57-0500 Systolic blood pressure 116 mm[Hg] EZRA HOOVER MD [facility] 08-17-2021 01:44-0500 Body temperature 98.06 [degF] TOBIN MOORE MD [facility] 08-17-2021 01:44-0500 Diastolic blood pressure 73 mm[Hg] TOBIN MOORE MD [facility] 08-17-2021 01:44-0500 Heart rate 115 /min TOBIN MOORE MD [facility] 08-17-2021 01:44-0500 Respiratory rate 18 /min TOBIN MOORE MD [facility] 08-17-2021 01:44-0500 Systolic blood pressure 103 mm[Hg] TOBIN MOORE MD [facility] 08-16-2021 23:39-0500 Body height 157.5 cm TOBIN MOORE MD [facility] 08-16-2021 23:39-0500 Body temperature 98.42 [degF] TOBIN MOORE MD [facility] 08-16-2021 23:39-0500 Body weight 56.8 kg TOBIN MOORE MD [facility] 08-16-2021 23:39-0500 Diastolic blood pressure 79 mm[Hg] TOBIN MOORE MD [facility] 08-16-2021 23:39-0500 Heart rate 124 /min TOBIN MOORE MD [facility] 08-16-2021 23:39-0500 Respiratory rate 20 /min TOBIN MOORE MD [facility] 08-16-2021 23:39-0500 Systolic blood pressure 116 mm[Hg] TOBIN MOORE MD [facility] Encounters Encounter Date Encounter Type Care Provider Facility Start: 11-01-2023 Telephone encounter Kwaku VERGARA Work Phone: [facility] Procedures Date Procedure Procedure Detail Performing Clinician Start: 10-31-2023 STREP A MOLECULAR (POC) [facility] Provider Start: 10-05-2023 STREP A MOLECULAR (POC) [facility] Provider None (qualifier value) TOBIN MOORE MD Wrist region structu re (body structure) TOBIN MOORE MD Plan of Treatment Date Care Activity Detail Author Start: 06-05-2033 Urine microalbumin profile DTaP,Tdap,Td Vaccine (8 - Td or Tdap) [facility] Start: 08-24-2023 Depression Assessment Depression Ass essment [facility] Start: 04-24-2023 Covid-19 Vaccine ( season) Covid-19 Vaccine ( season) [facility] Start: 04-24-2023 Influenza vaccination [facility] Start: 12-05-2022 End: 12-19-2022 Influenza virus A and B RNA and SARS-CoV-2 (COVID-19) N gene panel - Respiratory specimen by DILCIA with probe detection [facility] Work Phone: Immunizations Immunization Date Immunization Notes Care Provider Fa cility 06-05-2023 tetanus toxoid, redu samira diphtheria toxoid, and acellular pertussis vaccine, adsorbed ASHKAN WALTERS MD [facility] 08-19-2018 influenza virus vaccine, unspecified formulation Mikki Kramer APRN.CNP Work Phone: [facility] 03-18-2012 tetanus toxoid, redu samira diphtheria toxoid, and acellular pertussis vaccine, adsorbed TOBIN MOORE MD [facility] 07-12-2009 influenza virus vaccine, H1N1, live TOBIN MOORE MD [facility] 05-11-2006 hepatitis A vaccine, pediatric dosage, unspecified formulation TOBIN MOORE MD [facility] 05-28-2001 measles/mumps/rubell a virus vaccine TOBIN MOORE MD [facility] 01-06-1996 haemophilus influenz ae type b vaccine, PRP-T conjugate TOBIN MOORE MD [facility] 01-06-1996 hepatitis B pediatri c vaccine TOBIN MOORE MD [facility] 05-01-1995 hepatitis B pediatri c vaccine TOBIN MOORE MD [facility] 02-20-1995 haemophilus influenz ae type b vaccine, PRP-T conjugate TOBIN MOORE MD [facility] 02-20-1995 hepatitis B pediatri c vaccine TOBIN MOORE MD [facility] 1994 haemophilus influenz ae type b vaccine, PRP-T conjugate TOBIN MOORE MD [facility] 1994 hepatitis B pediatri c vaccine TOBIN MOORE MD [facility] 1994 measles/mumps/rubell a virus vaccine TOBIN MOORE MD [facility] 1994 haemophilus influenz ae type b vaccine, PRP-T conjugate TOBIN MOORE MD [facility] 1994 hepatitis B pediatri c vaccine TOBIN MOORE MD [facility] 1994 hepatitis B pediatri c vaccine TOBIN MOORE MD [facility] 1994 hepatitis B pediatri c vaccine TOBIN MOORE MD [facility] Payers Date Payer Category Payer Medicaid [id number] 2022 Unknown [id number] 2015 Medicaid [employer] [facility] MEDICAID [id number] 2015-Present [phone] [address] [place] [address] Medicaid [id number] 1994 Unknown [id number] 1994 Unknown [id number] 1994 Unknown [id number] 1994 Unknown [id number] 1994 Unknown [id number] Social History Date Type Detail Facility Start: 01-25-2021 Never smoked t obacco (finding) [facility] Sex Assigned At [facility] Start: 11-19-2015 End: 10-22-2022 Tobacco smoking status NHIS Ex-smoker [facility] Work Phone: Start: 11-19-2015 End: 10-22-2022 Tobacco use and exposure Smokeless tobacco non-user [facility] Work Phone: Start: 03-22-2022 End: 10-31-2023 Alcohol intake Not Asked [facility] Start: 1995 Sex Assigned At Not on file [facility] Start: 03-12-2022 End: 03-22-2022 Exposure to SARS-CoV-2 (event) Not sure [facility] History of tobacco use Current smoker [facility] Start: 2020 End: 04-23-2023 History of Social function [facility] Start: 2020 End: 04-23-2023 Tobacco use panel [facility] National Score (1-100), lower number is lower risk Not on file [facility] Functional Status Date Assessment Result Facility 06-05-2023 Functional Status Standard Safet y Safety level maintained [facility] 06-05-2023 Functional Status [facility] 06-05-2023 Functional Status Rooming in [facility] 06-05-2023 Functional Status [facility] 06-05-2023 Functional Status [facility] 06-05-2023 Functional Status Positioning Repositions self [facility] 06-04-2023 Functional Status [facility] Moderate assi stance [facility] 06-04-2023 Functional Status Home independently [facility] Mental Status Date Assessment Result Facility 06-05-2023 Mental Status Orientation Oriented x 4 [facility] Clinical Notes 08-17-2021 to 11-01-2023 Telephone Encounter - Naty Martin MA - 11/01/2023 10:26 AM EDTTelephone Encounter - Naty Martin MA - 11/01/2023 8:33 AM EDTPatient Kwaku Jensen PA - 10/05/2023 9:20 AM EST Note Date & Type Note Facility 11-01-2023 Miscellaneous Notes Patient given results and verbalized understanding of instructions given. Naty Martin MA Left message for patient to return call. Naty Martin MA Please call patient and let her know that she tested positive for influenza B. She is out of the window for treatment with Tamiflu. documented in this encounter [facility] 10-31-2023 Note HNO ID: [id number] Author: LUNA GUILLORY APRN.COMPUTER SECURITY MANAGER Service: ? Author Type: Nurse Practitioner Type: Progress Notes Filed: 10/31/2023 09:17 Note Text: Subjective Nasal Congestion Associated symptoms include chills, congestion, coughing, headaches and a sore throat. Pertinent negatives include no ear pain or shortness of breath. Maryuri Rosario is a 28 year old female who presents with 5 days of cough, congestion, developed a sore throat 4 days ago. Has had a fever at home, is generally around 102 degrees F, only goes away if she takes tylenol or ibuprofen. Has continuing sinus congestion and drainage. Was seen here on 10/26 for nausea-likely due to gastroenteritis as this had been going around in her family. Review of Systems Constitutional: Positive for chills, fever and malaise/fatigue. HENT: Positive for congestion and sore throat. Negative for ear pain. Respiratory: Positive for cough. Negative for shortness of breath. Cardiovascular: Positive for chest pain (with cough). Gastrointestinal: Positive for nausea. Musculoskeletal: Negative for myalgias. Neurological: Positive for headaches. BP 108/64 Pulse 102 Temp 36.9 ?C (98.4 ?F) Resp 18 Wt 62.8 kg (138 lb 7.2 oz) LMP 08/29/2022 (Approximate) SpO2 98% PAST MEDICAL HISTORY Diagnosis Date Childhood asthma Migraine PAST SURGICAL HISTORY Procedure Laterality Date WRIST SURGERY HX Right cyst removed ALLERGIES Patient has no known allergies. MEDICATIONS SPRINTEC 0.25-35 mg-mcg per tablet pantoprazole DR (PROTONIX) 40 mg tablet Take 1 tablet by mouth every afternoon. 28 mg iron- 800 mcg tab Take 1 tablet by mouth every afternoon. (Patient not taking: Reported on 10/05/2023) Ferrous Gluconate (FERGON) 324 mg (38 mg iron) tablet TAKE 1 TABLET BY MOUTH TWICE A DAY X1 MONTH (Patient not taking: Reported on 10/05/2023) famotidine (PEPCID) 20 mg tablet (Patient not taking: Reported on 04/23/2023) fluticasone (FLONASE) 50 mcg/actuation nasal spray Use 2 Sprays in each nostril once daily. Rinse mouth after use. (Patient not taking: Reported on 04/23/2023) propranolol (INDERAL) 10 mg tablet Take 10 mg by mouth twice daily. (Patient not taking: Reported on 12/05/2022) rizatriptan (MAXALT) 10 mg tablet 10 MG EVERY 2 HOURS NEEDED FOR MIGRAINE HEADACHE MAY REPEAT DOSE AFTER 2 HOURS UP TO 3 DOSES/DAY (Patient not taking: Reported on 12/05/2022) No family history on file. Social History Tobacco Use Smoking status: Former Smokeless tobacco: Never Objective Physical Exam Vitals and nursing note reviewed. Constitutional: General: She is not in acute distress. Appearance: Normal appearance. She is not ill-appearing. HENT: Right Ear: Tympanic membrane, ear canal and external ear normal. Left Ear: Tympanic membrane, ear canal and external ear normal. Nose: Congestion and rhinorrhea present. Mouth/Throat: Mouth: Mucous membranes are moist. Pharynx: Uvula midline. Posterior oropharyngeal erythema present. No oropharyngeal exudate. Cardiovascular: Rate and Rhythm: Normal rate and regular rhythm. Heart sounds: Normal heart sounds. Pulmonary: Effort: Pulmonary effort is normal. No respiratory distress. Breath sounds: Normal breath sounds. No wheezing or rales. Musculoskeletal: Cervical back: Neck supple. Lymphadenopathy: Cervical: No cervical adenopathy. Skin: General: Skin is warm and dry. Findings: No erythema or rash. Neurological: Mental Status: She is alert. ASSESSMENT/PLAN: 1. Sore throat - ICD9: 462, ICD10: J02.9 (primary diagnosis) - suspect viral - Group A strep molecular testing negative - Discussed supportive care treatment with fluids, rest and analgesia. 2. Bacterial sinusitis - ICD9: 473.9, 041.9, ICD10: J32.9, B96.89 - Will begin treatment with as per antibiotic as written, see orders - Supportive care with plenty of fluids, rest, and analgesia prn. - AMOXICILLIN 875 MG-POTASSIUM CLAVULANATE 125 MG TABLET-may start this if symptoms not improving. 3. Fever, unspecified fever cause - ICD9: 780.60, ICD10: R50.9 - suspect viral - COVID AND INFLUENZA A/B AND RSV NAAT, ROUTINE - Follow-up with your PCP in 3-5 days if symptoms have not improved or sooner if symptoms worsen - Discussed red flags and need for immediate medical evaluation if any occur. - Discussed supportive care treatment with fluids, rest and analgesia. - Discussed expected course of illness Luna Guillory APRN.CNP [facility] 10-31-2023 Luna Perez APRN.CNP - 10/31/2023 9:16 AM EST ASSESSMENT/PLAN: 1. Sore throat - ICD9: 462, ICD10: J02.9 (primary diagnosis) - suspect viral - Group A strep molecular testing negative - Discussed supportive care treatment with fluids, rest and analgesia. 2. Bacterial sinusitis - ICD9: 473.9, 041.9, ICD10: J32.9, B96.89 - Will begin treatment with as per antibiotic as written, see orders - Supportive care with plenty of fluids, rest, and analgesia prn. - AMOXICILLIN 875 MG-POTASSIUM CLAVULANATE 125 MG TABLET- may start this if symptoms not improving. 3. Fever, unspecified fever cause - ICD9: 780.60, ICD10: R50.9 - suspect viral - COVID & INFLUENZA A/B & RSV NAAT, ROUTINE - Follow-up with your PCP in 3-5 days if symptoms have not improved or sooner if symptoms worsen - Discussed red flags and need for immediate medical evaluation if any occur. - Discussed supportive care treatment with fluids, rest and analgesia. - Discussed expected course of illness Luna Guillory APRN.CNP Treatment for Viral Upper Respiratory Tract Infections Your body will kill off the virus by itself. Additionally, you can prime your body's immune system. This may help you get better more quickly. Drink lots of fluids Make sure you are eating well Get plenty of rest We do not have any medications that kill off these viruses. Antibiotics are used to treat bacterial infections; however, they are not active against viral infections. There are some things that might help you feel better, though. Vaporizers, humidifiers, hot showers, and hot fluids help open respiratory and sinus passages Jacobus Nasal [place] may offer relief of nasal and head congestion Clint's Vapor Rub may relieve congestion Tylenol and Advil help control fevers and headaches Salt water gargles help relieve sore throats Chloraceptic spray or throat lozenges may also help relieve sore throat symptoms Occasionally, viral infections turn into something more serious. You should see your doctor or return to the Urgent Care if: You have fevers for longer than five days You have fevers above 102 degrees You are still sick after 10 days You have shortness of breath or wheezing After several days you are getting worse rather than better documented in this encounter [facility] 10-31-2023 History of Presen t illness Narrative Subjective Nasal Congestion Associated symptoms include chills, congestion, coughing, headaches and a sore throat. Pertinent negatives include no ear pain or shortness of breath. Maryuri Rosario is a 28 year old female who presents with 5 days of cough, congestion, developed a sore throat 4 days ago. Has had a fever at home, is generally around 102 degrees F, only goes away if she takes tylenol or ibuprofen. Has continuing sinus congestion and drainage. Was seen here on 10/26 for nausea-likely due to gastroenteritis as this had been going around in her family. Review of Systems Constitutional: Positive for chills, fever and malaise/fatigue. HENT: Positive for congestion and sore throat. Negative for ear pain. Respiratory: Positive for cough. Negative for shortness of breath. Cardiovascular: Positive for chest pain (with cough). Gastrointestinal: Positive for nausea. Musculoskeletal: Negative for myalgias. Neurological: Positive for headaches. BP 108/64 Pulse 102 Temp 36.9 C (98.4 F) Resp 18 Wt 62.8 kg (138 lb 7.2 oz) LMP 08/29/2022 (Approximate) SpO2 98% PAST MEDICAL HISTORY Diagnosis Date Childhood asthma Migraine PAST SURGICAL HISTORY Procedure Laterality Date WRIST SURGERY HX Right cyst removed ALLERGIES Patient has no known allergies. MEDICATIONS SPRINTEC 0.25-35 mg-mcg per tablet pantoprazole DR (PROTONIX) 40 mg tablet Take 1 tablet by mouth every afternoon. 28 mg iron- 800 mcg tab Take 1 tablet by mouth every afternoon. (Patient not taking: Reported on 10/05/2023) Ferrous Gluconate (FERGON) 324 mg (38 mg iron) tablet TAKE 1 TABLET BY MOUTH TWICE A DAY X1 MONTH (Patient not taking: Reported on 10/05/2023) famotidine (PEPCID) 20 mg tablet (Patient not taking: Reported on 04/23/2023) fluticasone (FLONASE) 50 mcg/actuation nasal spray Use 2 Sprays in each nostril once daily. Rinse mouth after use. (Patient not taking: Reported on 04/23/2023) propranolol (INDERAL) 10 mg tablet Take 10 mg by mouth twice daily. (Patient not taking: Reported on 12/05/2022) rizatriptan (MAXALT) 10 mg tablet 10 MG EVERY 2 HOURS NEEDED FOR MIGRAINE HEADACHE MAY REPEAT DOSE AFTER 2 HOURS UP TO 3 DOSES/DAY (Patient not taking: Reported on 12/05/2022) No family history on file. Social History Tobacco Use Smoking status: Former Smokeless tobacco: Never Objective Physical Exam Vitals and nursing note reviewed. Constitutional: General: She is not in acute distress. Appearance: Normal appearance. She is not ill-appearing. HENT: Right Ear: Tympanic membrane, ear canal and external ear normal. Left Ear: Tympanic membrane, ear canal and external ear normal. Nose: Congestion and rhinorrhea present. Mouth/Throat: Mouth: Mucous membranes are moist. Pharynx: Uvula midline. Posterior oropharyngeal erythema present. No oropharyngeal exudate. Cardiovascular: Rate and Rhythm: Normal rate and regular rhythm. Heart sounds: Normal heart sounds. Pulmonary: Effort: Pulmonary effort is normal. No respiratory distress. Breath sounds: Normal breath sounds. No wheezing or rales. Musculoskeletal: Cervical back: Neck supple. Lymphadenopathy: Cervical: No cervical adenopathy. Skin: General: Skin is warm and dry. Findings: No erythema or rash. Neurological: Mental Status: She is alert. ASSESSMENT/PLAN: 1. Sore throat - ICD9: 462, ICD10: J02.9 (primary diagnosis) - suspect viral - Group A strep molecular testing negative - Discussed supportive care treatment with fluids, rest and analgesia. 2. Bacterial sinusitis - ICD9: 473.9, 041.9, ICD10: J32.9, B96.89 - Will begin treatment with as per antibiotic as written, see orders - Supportive care with plenty of fluids, rest, and analgesia prn. - AMOXICILLIN 875 MG-POTASSIUM CLAVULANATE 125 MG TABLET-may start this if symptoms not improving. 3. Fever, unspecified fever cause - ICD9: 780.60, ICD10: R50.9 - suspect viral - COVID & INFLUENZA A/B & RSV NAAT, ROUTINE - Follow-up with your PCP in 3-5 days if symptoms have not improved or sooner if symptoms worsen - Discussed red flags and need for immediate medical evaluation if any occur. - Discussed supportive care treatment with fluids, rest and analgesia. - Discussed expected course of illness Luna Guillory APRN.COMPUTER SECURITY MANAGER documented in this encounter [facility] 10-27-2023 Note HNO ID: [id number] Author: KERRIE TATE APRN.COMPUTER SECURITY MANAGER Service: ? Author Type: Nurse Practitioner Type: Progress Notes Filed: 10/27/2023 13:55 Note Text: Subjective HPI HPI Maryuri Rosario is a 28 year old female who presents today for CC of nausea. This started 3 days ago. Has tried nothing for relief. Symptoms are worsened by nothing. Risk factors sick child with n/v/d at home currently. Denies possibility of being . .Patient presents with: Nausea: x 3 days PAST MEDICAL HISTORY Diagnosis Date Childhood asthma Migraine PAST SURGICAL HISTORY Procedure Laterality Date WRIST SURGERY HX Right cyst removed ALLERGIES Patient has no known allergies. MEDICATIONS pantoprazole DR (PROTONIX) 40 mg tablet Take 1 tablet by mouth every afternoon. SPRINTEC 0.25-35 mg-mcg per tablet 28 mg iron- 800 mcg tab Take 1 tablet by mouth every afternoon. (Patient not taking: Reported on 10/05/2023) Ferrous Gluconate (FERGON) 324 mg (38 mg iron) tablet TAKE 1 TABLET BY MOUTH TWICE A DAY X1 MONTH (Patient not taking: Reported on 10/05/2023) famotidine (PEPCID) 20 mg tablet (Patient not taking: Reported on 04/23/2023) fluticasone (FLONASE) 50 mcg/actuation nasal spray Use 2 Sprays in each nostril once daily. Rinse mouth after use. (Patient not taking: Reported on 04/23/2023) propranolol (INDERAL) 10 mg tablet Take 10 mg by mouth twice daily. (Patient not taking: Reported on 12/05/2022) rizatriptan (MAXALT) 10 mg tablet 10 MG EVERY 2 HOURS NEEDED FOR MIGRAINE HEADACHE MAY REPEAT DOSE AFTER 2 HOURS UP TO 3 DOSES/DAY (Patient not taking: Reported on 12/05/2022) No family history on file. Social History Tobacco Use Smoking status: Former Smokeless tobacco: Never Review of Systems Constitutional: Negative for chills, fever and weight loss. Respiratory: Negative for cough, shortness of breath and wheezing. Cardiovascular: Negative for chest pain and palpitations. Gastrointestinal: Positive for nausea. Negative for abdominal pain, blood in stool, constipation, diarrhea, heartburn, melena and vomiting. Genitourinary: Negative for dysuria, flank pain, frequency, hematuria and urgency. Musculoskeletal: Positive for myalgias. Objective Blood pressure 128/72, pulse 90, temperature 37 ?C (98.6 ?F), resp. rate 16, weight 61.7 kg (136 lb), last menstrual period 08/29/2022, SpO2 99%, unknown if currently . Physical Exam Constitutional: General: She is not in acute distress. Appearance: Normal appearance. She is not toxic-appearing. Cardiovascular: Rate and Rhythm: Normal rate and regular rhythm. Heart sounds: Normal heart sounds. Pulmonary: Effort: Pulmonary effort is normal. Breath sounds: Normal breath sounds. Abdominal: General: Bowel sounds are normal. Palpations: Abdomen is soft. Tenderness: There is no abdominal tenderness. Skin: General: Skin is warm and dry. ASSESSMENT/PLAN: 1. Nausea - ICD9: 787.02, ICD10: R11.0 Is suspect viral gastroenteritis going through family currently Brat diet discussed F/u for continued/worsening s/s. Kerrie Tate APRN.[facility] 10-05-2023 Note HNO ID: [id number] Author: KWAKU PATEL PA Service: ? Author Type: Physician Supervisor Grower Type: Progress Notes Filed: 10/05/2023 09:26 Note Text: This note was created using [employer] Me. Lai Rosario is a 28 year old female. HPI 28-year-old female presents for sore throat and headache x 2 days. Patient states that her daughter recently tested positive for strep. She also works at a daycare. Patient states she has had sore throat since Thursday. No fevers. No cough or runny nose. She is still able to eat and drink. No other complaint. PAST MEDICAL HISTORY Diagnosis Date Childhood asthma Migraine PAST SURGICAL HISTORY Procedure Laterality Date WRIST SURGERY HX Right cyst removed ALLERGIES Patient has no known allergies. MEDICATIONS pantoprazole DR (PROTONIX) 40 mg tablet Take 1 tablet by mouth every afternoon. 28 mg iron- 800 mcg tab Take 1 tablet by mouth every afternoon. (Patient not taking: Reported on 10/05/2023) Ferrous Gluconate (FERGON) 324 mg (38 mg iron) tablet TAKE 1 TABLET BY MOUTH TWICE A DAY X1 MONTH (Patient not taking: Reported on 10/05/2023) famotidine (PEPCID) 20 mg tablet (Patient not taking: Reported on 04/23/2023) fluticasone (FLONASE) 50 mcg/actuation nasal spray Use 2 Sprays in each nostril once daily. Rinse mouth after use. (Patient not taking: Reported on 04/23/2023) propranolol (INDERAL) 10 mg tablet Take 10 mg by mouth twice daily. (Patient not taking: Reported on 12/05/2022) rizatriptan (MAXALT) 10 mg tablet 10 MG EVERY 2 HOURS NEEDED FOR MIGRAINE HEADACHE MAY REPEAT DOSE AFTER 2 HOURS UP TO 3 DOSES/DAY (Patient not taking: Reported on 12/05/2022) No family history on file. Social History Tobacco Use Smoking status: Former Smokeless tobacco: Never Review of Systems Constitutional: Negative for chills and fever. HENT: Positive for sore throat. Negative for congestion and ear pain. Respiratory: Negative for cough and shortness of breath. Cardiovascular: Negative for chest pain. Gastrointestinal: Negative for diarrhea and vomiting. Neurological: Positive for headaches. Objective BP 104/78 Pulse 85 Temp 37.1 ?C (98.7 ?F) Resp 21 Wt 63.5 kg (140 lb) LMP 08/29/2022 (Approximate) SpO2 98% Physical Exam Vitals and nursing note reviewed. Constitutional: General: She is not in acute distress. Appearance: Normal appearance. She is not toxic-appearing. HENT: Right Ear: Tympanic membrane and ear canal normal. Left Ear: Tympanic membrane and ear canal normal. Nose: Nose normal. Mouth/Throat: Mouth: Mucous membranes are moist. Pharynx: Posterior oropharyngeal erythema present. No oropharyngeal exudate. Tonsils: No tonsillar exudate or tonsillar abscesses. 1+ on the right. 1+ on the left. Comments: Bifid uvula. Uvula is midline. Posterior oropharyngeal erythema. 1+ tonsillar swelling. No exudates. No abscess. Eyes: Conjunctiva/sclera: Conjunctivae normal. Cardiovascular: Rate and Rhythm: Normal rate and regular rhythm. Pulmonary: Effort: Pulmonary effort is normal. Breath sounds: Normal breath sounds. Neurological: Mental Status: She is alert. Assessment and Plan ASSESSMENT/PLAN: 1. Strep pharyngitis - ICD9: 034.0, ICD10: J02.0 (primary diagnosis) - suspect strep - Group A strep molecular testing positive - Amoxicillin for 10 days. - Discussed supportive care treatment with fluids, rest and analgesia. - Contagious dz precautions discussed- including considered contagious until on antibiotics for 24 hours 2. Sore throat - ICD9: 462, ICD10: J02.9 - see above Diagnosis and treatment plan were discussed and questions were answered to the patient's satisfaction. Pt acknowledged understanding of concepts and follow up plan. Specific signs and symptoms that would indicate the need for higher level of care were discussed in detail warranting prompt ER evaluation. URSULA Guillen [facility] 10-05-2023 History of Presen t illness Narrative This note was created using Frontleafriter. Lai Rosario is a 28 year old female. HPI 28-year-old female presents for sore throat and headache x 2 days. Patient states that her daughter recently tested positive for strep. She also works at a daycare. Patient states she has had sore throat since Thursday. No fevers. No cough or runny nose. She is still able to eat and drink. No other complaint. PAST MEDICAL HISTORY Diagnosis Date Childhood asthma Migraine PAST SURGICAL HISTORY Procedure Laterality Date WRIST SURGERY HX Right cyst removed ALLERGIES Patient has no known allergies. MEDICATIONS pantoprazole DR (PROTONIX) 40 mg tablet Take 1 tablet by mouth every afternoon. 28 mg iron- 800 mcg tab Take 1 tablet by mouth every afternoon. (Patient not taking: Reported on 10/05/2023) Ferrous Gluconate (FERGON) 324 mg (38 mg iron) tablet TAKE 1 TABLET BY MOUTH TWICE A DAY X1 MONTH (Patient not taking: Reported on 10/05/2023) famotidine (PEPCID) 20 mg tablet (Patient not taking: Reported on 04/23/2023) fluticasone (FLONASE) 50 mcg/actuation nasal spray Use 2 Sprays in each nostril once daily. Rinse mouth after use. (Patient not taking: Reported on 04/23/2023) propranolol (INDERAL) 10 mg tablet Take 10 mg by mouth twice daily. (Patient not taking: Reported on 12/05/2022) rizatriptan (MAXALT) 10 mg tablet 10 MG EVERY 2 HOURS NEEDED FOR MIGRAINE HEADACHE MAY REPEAT DOSE AFTER 2 HOURS UP TO 3 DOSES/DAY (Patient not taking: Reported on 12/05/2022) No family history on file. Social History Tobacco Use Smoking status: Former Smokeless tobacco: Never Review of Systems Constitutional: Negative for chills and fever. HENT: Positive for sore throat. Negative for congestion and ear pain. Respiratory: Negative for cough and shortness of breath. Cardiovascular: Negative for chest pain. Gastrointestinal: Negative for diarrhea and vomiting. Neurological: Positive for headaches. Objective BP 104/78 Pulse 85 Temp 37.1 C (98.7 F) Resp 21 Wt 63.5 kg (140 lb) LMP 08/29/2022 (Approximate) SpO2 98% Physical Exam Vitals and nursing note reviewed. Constitutional: General: She is not in acute distress. Appearance: Normal appearance. She is not toxic-appearing. HENT: Right Ear: Tympanic membrane and ear canal normal. Left Ear: Tympanic membrane and ear canal normal. Nose: Nose normal. Mouth/Throat: Mouth: Mucous membranes are moist. Pharynx: Posterior oropharyngeal erythema present. No oropharyngeal exudate. Tonsils: No tonsillar exudate or tonsillar abscesses. 1+ on the right. 1+ on the left. Comments: Bifid uvula. Uvula is midline. Posterior oropharyngeal erythema. 1+ tonsillar swelling. No exudates. No abscess. Eyes: Conjunctiva/sclera: Conjunctivae normal. Cardiovascular: Rate and Rhythm: Normal rate and regular rhythm. Pulmonary: Effort: Pulmonary effort is normal. Breath sounds: Normal breath sounds. Neurological: Mental Status: She is alert. Assessment and Plan ASSESSMENT/PLAN: 1. Strep pharyngitis - ICD9: 034.0, ICD10: J02.0 (primary diagnosis) - suspect strep - Group A strep molecular testing positive - Amoxicillin for 10 days. - Discussed supportive care treatment with fluids, rest and analgesia. - Contagious dz precautions discussed- including considered contagious until on antibiotics for 24 hours 2. Sore throat - ICD9: 462, ICD10: J02.9 - see above Diagnosis and treatment plan were discussed and questions were answered to the patient's satisfaction. Pt acknowledged understanding of concepts and follow up plan. Specific signs and symptoms that would indicate the need for higher level of care were discussed in detail warranting prompt ER evaluation. URSULA Guillen documented in this encounter [facility] 07-23-2023 Note HNO ID: [id number] Author: Mikki Kramer APRN.[facility] Service: ? Author Type: Nurse Practitioner Type: Progress Notes Filed: 07/23/2023 12:20 PM Note Text: This note was created using Frontleafriter. Lai Rosario is a 27 year old female. 27 year old female with no PMH presents for illness. Acute onset over a week ago +sinus pressure +sore throat +post nasal drainage +headache Denies cough Denies body aches Denies tobacco usage Has used Sudafed. The history is provided by the patient. No apprenticeship consultant was used. Sinus Problem This is a new problem. The current episode started 1 to 4 weeks ago. The problem occurs constantly. Associated symptoms include congestion, fatigue, headaches, a sore throat and swollen glands. Pertinent negatives include no abdominal pain, anorexia, arthralgias, change in bowel habit, chest pain, chills, coughing, diaphoresis, fever, joint swelling, myalgias, nausea, neck pain, numbness, rash, urinary symptoms, vertigo, visual change, vomiting or weakness. Nothing aggravates the symptoms. Treatments tried: sudafed. The treatment provided no relief. PAST MEDICAL HISTORY Diagnosis Date Childhood asthma Migraine PAST SURGICAL HISTORY Procedure Laterality Date WRIST SURGERY HX Right cyst removed ALLERGIES Patient has no known allergies. MEDICATIONS 28 mg iron- 800 mcg tab Take 1 tablet by mouth every afternoon. pantoprazole DR (PROTONIX) 40 mg tablet Take 1 tablet by mouth every afternoon. Ferrous Gluconate (FERGON) 324 mg (38 mg iron) tablet TAKE 1 TABLET BY MOUTH TWICE A DAY X1 MONTH doxycycline (VIBRA-TABS) 100 mg tablet Take 1 tablet by mouth two times a day for 7 days. famotidine (PEPCID) 20 mg tablet (Patient not taking: Reported on 04/23/2023) fluticasone (FLONASE) 50 mcg/actuation nasal spray Use 2 Sprays in each nostril once daily. Rinse mouth after use. (Patient not taking: Reported on 04/23/2023) propranolol (INDERAL) 10 mg tablet Take 10 mg by mouth twice daily. (Patient not taking: Reported on 12/05/2022) rizatriptan (MAXALT) 10 mg tablet 10 MG EVERY 2 HOURS NEEDED FOR MIGRAINE HEADACHE MAY REPEAT DOSE AFTER 2 HOURS UP TO 3 DOSES/DAY (Patient not taking: Reported on 12/05/2022) No family history on file. Social History Tobacco Use Smoking status: Former Smokeless tobacco: Never Review of Systems Constitutional: Positive for fatigue. Negative for chills, diaphoresis and fever. HENT: Positive for congestion, postnasal drip, sinus pressure, sinus pain and sore throat. Eyes: Negative for photophobia, pain, discharge, redness and itching. Respiratory: Negative for apnea, cough, choking and chest tightness. Cardiovascular: Negative for chest pain, palpitations and leg swelling. Gastrointestinal: Negative for abdominal pain, anorexia, change in bowel habit, nausea and vomiting. Musculoskeletal: Negative for arthralgias, joint swelling, myalgias and neck pain. Skin: Negative for color change, pallor and rash. Allergic/Immunologic: Negative for environmental allergies, food allergies and immunocompromised state. Neurological: Positive for headaches. Negative for dizziness, vertigo, facial asymmetry, weakness and numbness. Hematological: Negative for adenopathy. Does not bruise/bleed easily. Psychiatric/Behavioral: Negative for agitation and behavioral problems. Objective BP 112/77 Pulse 85 Temp 36.8 ?C (98.2 ?F) Resp 18 Wt 64.7 kg (142 lb 9.6 oz) LMP 08/29/2022 (Approximate) SpO2 96% Unknown Physical Exam Vitals and nursing note reviewed. Constitutional: General: She is not in acute distress. Appearance: Normal appearance. She is normal weight. She is not ill-appearing, toxic-appearing or diaphoretic. HENT: Head: Normocephalic and atraumatic. Comments: +maxillary sinus pressure Right Ear: Ear canal and external ear normal. Left Ear: Ear canal and external ear normal. Ears: Comments: Bilateral moderate serous fluid noted Nose: Nose normal. No congestion or rhinorrhea. Mouth/Throat: Mouth: Mucous membranes are moist. Pharynx: Posterior oropharyngeal erythema present. No oropharyngeal exudate. Comments: +post nasal drainage Eyes: General: Right eye: No discharge. Left eye: No discharge. Extraocular Movements: Extraocular movements intact. Conjunctiva/sclera: Conjunctivae normal. Pupils: Pupils are equal, round, and reactive to light. Cardiovascular: Rate and Rhythm: Normal rate and regular rhythm. Pulses: Normal pulses. Heart sounds: Normal heart sounds. No murmur heard. No friction rub. Pulmonary: Effort: Pulmonary effort is normal. No respiratory distress. Breath sounds: Normal breath sounds. No stridor. No wheezing, rhonchi or rales. Chest: Chest wall: No tenderness. Abdominal: General: Abdomen is flat. There is no distension. Palpations: Abdomen is soft. There is no mass. Tenderness: There i (more content not included)... [facility] 07-23-2023 History of Presen t illness Narrative This note was created using Frontleafriter. Lai Rosario is a 27 year old female. 27 year old female with no PMH presents for illness. Acute onset over a week ago +sinus pressure +sore throat +post nasal drainage +headache Denies cough Denies body aches Denies tobacco usage Has used Sudafed. The history is provided by the patient. No apprenticeship consultant was used. Sinus Problem This is a new problem. The current episode started 1 to 4 weeks ago. The problem occurs constantly. Associated symptoms include congestion, fatigue, headaches, a sore throat and swollen glands. Pertinent negatives include no abdominal pain, anorexia, arthralgias, change in bowel habit, chest pain, chills, coughing, diaphoresis, fever, joint swelling, myalgias, nausea, neck pain, numbness, rash, urinary symptoms, vertigo, visual change, vomiting or weakness. Nothing aggravates the symptoms. Treatments tried: sudafed. The treatment provided no relief. PAST MEDICAL HISTORY Diagnosis Date Childhood asthma Migraine PAST SURGICAL HISTORY Procedure Laterality Date WRIST SURGERY HX Right cyst removed ALLERGIES Patient has no known allergies. MEDICATIONS 28 mg iron- 800 mcg tab Take 1 tablet by mouth every afternoon. pantoprazole DR (PROTONIX) 40 mg tablet Take 1 tablet by mouth every afternoon. Ferrous Gluconate (FERGON) 324 mg (38 mg iron) tablet TAKE 1 TABLET BY MOUTH TWICE A DAY X1 MONTH doxycycline (VIBRA-TABS) 100 mg tablet Take 1 tablet by mouth two times a day for 7 days. famotidine (PEPCID) 20 mg tablet (Patient not taking: Reported on 04/23/2023) fluticasone (FLONASE) 50 mcg/actuation nasal spray Use 2 Sprays in each nostril once daily. Rinse mouth after use. (Patient not taking: Reported on 04/23/2023) propranolol (INDERAL) 10 mg tablet Take 10 mg by mouth twice daily. (Patient not taking: Reported on 12/05/2022) rizatriptan (MAXALT) 10 mg tablet 10 MG EVERY 2 HOURS NEEDED FOR MIGRAINE HEADACHE MAY REPEAT DOSE AFTER 2 HOURS UP TO 3 DOSES/DAY (Patient not taking: Reported on 12/05/2022) No family history on file. Social History Tobacco Use Smoking status: Former Smokeless tobacco: Never Review of Systems Constitutional: Positive for fatigue. Negative for chills, diaphoresis and fever. HENT: Positive for congestion, postnasal drip, sinus pressure, sinus pain and sore throat. Eyes: Negative for photophobia, pain, discharge, redness and itching. Respiratory: Negative for apnea, cough, choking and chest tightness. Cardiovascular: Negative for chest pain, palpitations and leg swelling. Gastrointestinal: Negative for abdominal pain, anorexia, change in bowel habit, nausea and vomiting. Musculoskeletal: Negative for arthralgias, joint swelling, myalgias and neck pain. Skin: Negative for color change, pallor and rash. Allergic/Immunologic: Negative for environmental allergies, food allergies and immunocompromised state. Neurological: Positive for headaches. Negative for dizziness, vertigo, facial asymmetry, weakness and numbness. Hematological: Negative for adenopathy. Does not bruise/bleed easily. Psychiatric/Behavioral: Negative for agitation and behavioral problems. Objective BP 112/77 Pulse 85 Temp 36.8 C (98.2 F) Resp 18 Wt 64.7 kg (142 lb 9.6 oz) LMP 08/29/2022 (Approximate) SpO2 96% Unknown Physical Exam Vitals and nursing note reviewed. Constitutional: General: She is not in acute distress. Appearance: Normal appearance. She is normal weight. She is not ill-appearing, toxic-appearing or diaphoretic. HENT: Head: Normocephalic and atraumatic. Comments: +maxillary sinus pressure Right Ear: Ear canal and external ear normal. Left Ear: Ear canal and external ear normal. Ears: Comments: Bilateral moderate serous fluid noted Nose: Nose normal. No congestion or rhinorrhea. Mouth/Throat: Mouth: Mucous membranes are moist. Pharynx: Posterior oropharyngeal erythema present. No oropharyngeal exudate. Comments: +post nasal drainage Eyes: General: Right eye: No discharge. Left eye: No discharge. Extraocular Movements: Extraocular movements intact. Conjunctiva/sclera: Conjunctivae normal. Pupils: Pupils are equal, round, and reactive to light. Cardiovascular: Rate and Rhythm: Normal rate and regular rhythm. Pulses: Normal pulses. Heart sounds: Normal heart sounds. No murmur heard. No friction rub. Pulmonary: Effort: Pulmonary effort is normal. No respiratory distress. Breath sounds: Normal breath sounds. No stridor. No wheezing, rhonchi or rales. Chest: Chest wall: No tenderness. Abdominal: General: Abdomen is flat. There is no distension. Palpations: Abdomen is soft. There is no mass. Tenderness: There is no abdominal tenderness. There is no right CVA tenderness, left CVA tenderness, guarding or rebound. Hernia: No hernia is present. Musculoskeletal: General: No swelling, tenderness, deformity or signs of injury. Normal range of motion. Cervical back: Normal range of motion and neck supple. No rigidity. Right lower leg: No edema. Left lower leg: No edema. Lymphadenopathy: Cervical: Cervical adenopathy present. Skin: General: Skin is warm and dry. Capillary Refill: Capillary refill takes less than 2 seconds. Coloration: Skin is not jaundiced or pale. Findings: No bruising, erythema, lesion or rash. Neurological: General: No focal deficit present. Mental Status: She is alert and oriented to person, place, and time. Cranial Nerves: No cranial nerve deficit. Sensory: No sensory deficit. Motor: No weakness. Coordination: Coordination normal. Gait: Gait normal. Psychiatric: Mood and Affect: Mood normal. Behavior: Behavior normal. Thought Content: Thought content normal. Judgment: Judgment normal. Assessment and Plan ASSESSMENT/PLAN: 1. Rhinosinusitis - ICD9: 473.9, ICD10: J32.9 Over a week ago Progressively worsening - Will begin treatment with as per antibiotic as written, see orders - The patient should also be given OTC cough and cold meds as needed, warm salt water gargles, throat lozenges and/or OTC throat spray as needed, and nasal saline gtts and suction prn for the first 5-7 days of treatment. - Supportive care with plenty of fluids, rest, and analgesia prn. - Follow up in 3-5 days if symptoms persist or worsen. Mikki Kramer APRN.COMPUTER SECURITY MANAGER documented in this encounter [facility] Subjective Comfortable with oral Motrin Lochia small. Baby is eating well per bottle . Objective Looks very well. Independent in room. CVS: RRR Lungs: CTA B Abdomen: Soft, uterus firm at U- 2 Extremities: Nontender with no edema VITALS [id number](kg) 06/05 08:3837.1--9316----06/04 72.7 06/04 23:4136.6--8218---- 06/04 20:2137.1 06/04 16:03----[id number]-- 06/04 15:46----[id number]-- 24 Hr Tmax: 37.1 at 06/05 08:38 36 Hr Tmax: 37.1 at 06/05 08:38 Vital Signs are the last 5 in the past 48 hours. Weights display the last 5 within 7 days. Initial Wt: 06/04 72.7 kg 160 lb Current Wt: 06/04 72.7 kg 160 lb LABS 06/05 06:02 Hgb: 10.5 L Hct: 30.1 L 06/04 08:02 WBC: 6.4 Hgb: 11.7 L Hct: 33.7 L Platelet: 168 Neutrophil %: 69.7 Medications Active Inpt Meds: tetanus/diphth/pertuss (Tdap) adult/adol (Boostrix (Tdap)) Start: 06/04/23 16:00:00 EDT, Dose = 0.5 mL, Susp, Intramuscular, Vaccine, 06/04/23 15:50:00 EDT Problems (7) Back pain (652342874) Depression (646578651) Diarrhea (074066359) Encounter for supervision of normal in multigravida in third trimester ([id number]) ([id number]) (spontaneous vaginal delivery) (294243810) Vomiting (0536381885) ASSESSMENT/PLAN: PPD #1 after . Doing well and would like to go home. Good for discharge Extracted from: Title:Clinical Document Author:ASHKAN WALTERS MD Date:06/04/23 [facility] ADMISSION HISTORY AN D PHYSICIAL CHIEF COMPLAINT: 2 para 1 at 39 weeks estimated gestational age with uncomplicated admitted for elective induction of labor. HISTORY OF PRESENT ILLNESS: Uncomplicated term . GBS screening was negative. REVIEW OF SYSTEMS: No signs of labor or spontaneous rupture membranes at home. Good movement. No fevers, dysuria, diarrhea. A little nauseous this morning. No bleeding. ACTIVE PROBLEMS: (6) Back pain (763220077) Depression (809186809) Diarrhea (064501823) Encounter for supervision of normal in multigravida in third trimester (807322108) (363133962) Vomiting (4430279974) MEDICATIONS: Active Inpt Meds: None Active PRN Meds: Lactated Ringers Infusion (LR 500 mL Bolus) Start: 06/04/23 6:54:00 EDT, Dose = 500 mL, Soln, IV Bolus, AsDirected, PRN, Other (see order comments), Rate: 999 mL/hr, hour(s), 06/04/23 6:54:00 EDT carboprost (Hemabate) Start: 06/04/23 6:54:00 EDT, Dose = 250 mcg, = 1 mL, Intramuscular, Once, PRN, Other (see order comments), 06/04/23 654:00 EDT citric acid-sodium citrate (Bicitra) Start: 06/04/23:54:00 EDT, Dose = 30 mL, Soln, Oral, AsDirected, PRN, Gastric Upset, 06/04/23 6:54:00 EDT lidocaine (Xylocaine HCl 1% injectable solution) Start: 06/04/2354:00 EDT, Dose = 20 mg, = 2 mL, Perineum, AsDirected, PRN, to perineal sutures, 1 dose(s), Stop: Limited # of times, 06/04/2354:00 EDT methylergonovine (Methergine) Start: 06/04/23 654:00 EDT, Dose = 0.2 mg, = 1 mL, Intramuscular, Once, PRN, Other (see order comments), 06/04/23 654:00 EDT miSOPROStol (Cytotec) Start: 06/04/23 654:00 EDT, Dose = 1,000 mcg, = 5 tab(s), Rectal, Once, PRN, Other (see order comments), 0, 06/04/2354:00 EDT nalbuphine (Nubain) Start: 06/04/23 6:54:00 EDT, Dose = 10 mg, = 1 mL, IV Push, q2h, PRN, Pain, 06/04/23 6:54:00 EDT ondansetron (Zofran) Start: 06/04/23 6:54:00 EDT, Dose = 4 mg, = 2 mL, IV Push, q4h, PRN, Nausea, 06/04/23 654:00 EDT oxytocin (Pitocin) Start: 06/04/23 654:00 EDT, Dose = 20 unit(s), = 2 mL, Intramuscular, Once, PRN, Other (see order comments), 06/04/23 6:54:00 EDT terbutaline (Brethine) Start: 06/04/23 6:55:00 EDT, Dose = 0.25 mg, = 0.25 mL, Subcutaneous, AsDirected, PRN, Control symptoms, directed by physician for episode of tachysystole resulting in prolonged bradycardia (lasting greater than 3 minutes) and/or late decelerati... tranexamic acid (tranexamic acid 1 g / 100 mL 0.7% NaCl PMX) Start: 06/04/23 6:54:00 EDT, Dose = 1 gram(s), = 100 mL, IV Piggyback, AsDirected, PRN, Other (see order comments), Rate: 300 mL/hr, Infuse over: 20 minute(s), 0, 06/04/2354:00 EDT One Time Meds: None Active IV Meds: Lactated Ringers Infusion 1,000 mL (LR 1,000 mL) Start: 06/04/23 6:54:00 EDT, Rate: 125 mL/hr, 06/04/23 6:54:00 EDT oxytocin 20 unit(s) + LR Premix Diluent 1,000 mL (Oxytocin for IV (mL/hr) 20 unit(s) + LR Premix Diluent 1,000 mL) Start: 06/04/23 6:54:00 EDT, Rate: 999 mL/hr, 06/04/23 6:54:00 EDT oxytocin 20 unit(s) [2 munit/min] + LR Premix Diluent 1,000 mL (Oxytocin for IV (munit/min) 20 unit(s) [2 munit/min] + LR Premix Diluent 1,000 mL) Start: 06/04/23 6:55:00 EDT, Start at 2 milliunits/minute Piggyback at closest IV port via infusion pump. Increase rate 2 milliunits every 30 minutes until contractions are no closer than every 2 minutes. Do not exceed 30 milliunits/minute, Rate: 6 m... ALLERGIES: (1) NKA FAMILY HISTORY: No significant family history pertaining to this admission SOCIAL HISTORY: Ex-smoker. No alcohol or drug use. Stable home. PHYSICAL EXAM: VITALS: [id number](kg) 06/04 08:0536.5--9316----06/04 72.7 06/04 06:1536.7--41696---- 24 Hr Tmax: 36.7 at 06/04 06:15 36 Hr Tmax: 36.7 at 06/04 06:15 Vital Signs are the last 5 in the past 48 hours. Weights display the last 5 within 7 days. Initial Wt: 06/04 72.7 kg 160 lb Current Wt: 06/04 72.7 kg 160 lb GENERAL: Appears well HEENT: Normocephalic CARDIOVASCULAR: Regular rate and rhythm normal blood pressure RESPIRATORY: Clear bilaterally ABDOMEN: Gravid consistent with dating vertex presentation CERVIX: 2 to 3 cm 50% effaced -3 station membranes intact EXREMETIES: No edema NEUROLOGICAL: Intact PSYCHIATRIC: No signs of acute depression or anxiety LABS: 36hr Labs 06/04 0802 Hct33.7L Hgb11.7L MCH31.0 MCHC34.9 MCV88.9 MPV8.5 Qrtwqxcw228 RBC3.78L RDW13.3 WBC6.4 Lymphocyte %21.7 Monocyte %7.9 Neutrophil %69.7 Eosinophil %0.4 Basophil %0.3 Neutrophil, Absolute4.4 Lymphocyte, Absolute1.4 Monocyte, Absolute0.5 Eosinophil, Absolute0.0 Basophil, Absolute0.0 06/04 0604 Rubella, ExternSee Flowsheet Rubella Date Performed1:[id number]:0.501695:0:0 HIV Antibodies,See Flowsheet Group B Strep,See Flowsheet Hepatitis B, ExSee Flowsheet Hepatitis B Date Performed1:[id number]:[id number]:0:0 RPR, ExternalSee Flowsheet Group B Strep Date Performed1:[id number]:[id number]:0:0 DIAGNOSTICS: Reassuring category 1 heart rate tracing. No contractions on toco monitor IMPRESSION: Uncomplicated term admitted for elective induction of labor. Favorable cervix. PLAN: Plan for Pitocin induction of labor. Artificial rupture membranes when appropriate. Epidural if desired. Future Scheduled Tests Laboratory* Glucose 1 Hour Challenge 03/16/23 * [facility] Discharge instructions Patient Education 06/04/2023 15:11:53 and Mastitis and Mastitis Mastitis is inflammation of the breast tissue. It can occur in women who are . This can make painful. Mastitis will sometimes go away on its own, especially if it is not caused by an infection (non-infectious mastitis). Your health care provider will help determine if medical treatment is needed. Treatment may be needed if the condition is caused by a bacterial infection (infectious mastitis). What are the causes? This condition is often associated with a blocked milkduct, which can happen when too much milk builds up in the breast. Causes of excess milk in the breast can include: Poor latch-on. If your baby is not latched onto the breast properly, he or she may not empty your breast completely while . Allowing too much time to pass between feedings. Wearing a bra or other clothing that is too tight. This puts extra pressure on the milk ducts so milk does not flow through them as it should. Milk remaining in the breast because it is overfilled (engorged). Stress and fatigue. Mastitis can also be caused by a bacterial infection. Bacteria may enter the breast tissue through cuts, cracks, or openings in the skin near the nipple area. Cracks in the skin are often caused whenyour baby does not latch on properly to the breast. What are the signs or symptoms? Symptoms of this condition include: Swelling, redness, tenderness, and pain in an area of the breast. This usually affects the upper part of the breast, toward the armpit region. In most cases, it affects only one breast. In some cases, it may occur on both breasts at the same time and affect a larger portion of breast tissue. Swelling of the glands under the arm on the same side. Fatigue, headache, and flu-like muscle aches. Fever. Rapid pulse. Symptoms usually last 2 to 5 days. Breast pain and redness are at their worst on day 2 and day 3, and they usually go away by day 5. If an infection is left to progress, a collection of pus (abscess)may develop. How is this diagnosed? This condition can be diagnosed based on your symptoms and a physical exam. You may also have tests, such as: Blood tests to determine if your body is fighting a bacterial infection. Mammogram or ultrasound tests to rule out other problems or diseases. Fluid tests. If an abscess has developed, the fluid in the abscess may be removed with a needle. The fluid may be analyzed to determine if bacteria are present. Breast milk may be cultured and tested for bacteria. How is this treated? This condition will sometimes go away on its own. Your health care provider may choose to wait 24 hours after first seeing you to decide whether treatment is needed. If treatment is needed, it may include: Strategies to manage . This includes continuing to breastfeed or pump in order to allow adequate milk flow, using breast massage, and applying heat or cold to the affected area. Self-care such as rest and increased fluid intake. Medicine for pain. Antibiotic medicine to treat a bacterial infection. This is usually taken by mouth. If an abscess has developed, it may be treated by removing fluid with a needle. Follow these instructions at home: Medicines Take llwu-bnm-onheokn and prescription medicines only as told by your health care provider. If you were prescribed an antibiotic medicine, take it as told by your health care provider. Do notstop taking the antibiotic even if you start to feel better. General instructions Do not wear a tight or underwire bra. Wear a soft, supportive bra. Increase your fluid intake, especially if you have a fever. Get plenty of rest. For : Continue to empty your breasts as often as possible, either by or using an electric breast pump. This will lower the pressure and the pain that comes with it. Ask your health care provider if changes need to be made to your or pumping routine. Keep your nipples clean and dry. During , empty the first breast completely before going to the other breast. If your baby is not emptying your breasts completely, use a breast pump to empty your breasts. Use breast massage during feeding or pumping sessions. If directed, apply moist heat to the affected area of your breast right before or pumping. Use the heat source that your health care provider recommends. If directed, put ice on the affected area of your breast right after or pumping: ?Put ice in a plastic bag. ?Place a towel between your skin and the bag. ?Leave the ice on for 20 minutes. If you go back to work, pump your breasts while at work to stay in time with your nursing schedule. Do not allow your breasts to become engorged. Contact a health care provider if: You have pus-like discharge from the breast. You have a fever. Your symptoms do not improve within 2 days of starting treatment. Your symptoms return after you have recovered from a breast infection. Get help right away if: Your pain and swelling are getting worse. You have pain that is not controlled with medicine. You have a red line extending from the breast toward your armpit. Summary Mastitis is inflammation of the breast tissue. It is often caused by a blocked milk duct or bacteria. This condition may be treated with hot and cold compresses, medicines, self- care, and certain strategies. If you were prescribed an antibiotic medicine, take it as told by your health care provider. Do notstop taking the antibiotic even if you start to feel better. Continue to empty your breasts as often as possible either by or using an electric breast pump. This information is not intended to replace advice given to you by your health care provider. Make sure you discuss any questions you have with your health care provider. Document Released: 12/05/2005 Document Revised: 04/29/2019 Document Reviewed: 08/11/2017 [employer] Patient Education 2020 [employer]. 06/04/2023 15:11:39 7b- Depression and Blues (05/2020)(CUSTOM) Karly Depression and Blues All mothers are at risk of developing depression or the blues. These mood changes can occur right after giving , or they may occur many months after giving . blues or depression can be mild or severe. Additionally, depression can goaway rather quickly, or it can be a long-term condition. CAUSES Raised hormone levels and the rapid drop in those levels are thought to be a main cause of depression and blues. A number of hormones change during and after . Estrogenand progesterone usually decrease right after delivery. The levels of thyroid hormone and various cortisol steroids also rapidly drop. Other factors that play a role in these mood changes include major life events and genetics. RISK FACTORS If you have any of the following risks for blues or depression, know what symptoms to watch out for during the period. Risk factors that may increase the likelihood of getting blues or depression include: Having a personal or family history of depression. Having depression while being . Having premenstrual mood issues or mood issues related to oral contraceptives. Having a lot of life stress. Having marital conflict. Lacking a social support network. Having health problems, such as diabetes. SIGNS AND SYMPTOMS Symptoms of blues include: Brief changes in mood, such as going from extreme happiness to sadness. Decreased concentration. Difficulty sleeping. Crying spells, tearfulness. Irritability. Anxiety. Symptoms of depression typically begin within the first month after giving . These symptoms include: Difficulty sleeping or excessive sleepiness. Marked weight loss. Agitation. Feelings of worthlessness. Lack of interest in activity or food. psychosis is a very serious condition and can be dangerous. Fortunately, it is rare. Displaying any of the following symptoms is cause for immediate medical attention. Symptoms of psychosis include: Hallucinations and delusions. Bizarre or disorganized behavior. Confusion or disorientation. DIAGNOSIS A diagnosis is made by an evaluation of your symptoms. There are no medical or lab tests that lead to a diagnosis, but there are various questionnaires that a health care provider may use to identifythose with blues, depression, or psychosis. Often, a screening tool called the Boyce Depression Scale is used to diagnose depression in the period. TREATMENT blues usually goes away on its own in 1 2 weeks. Social support is often all that is needed. You will be encouraged to get adequate sleep and rest. Occasionally, you may be given medicinesto help you sleep. depression requires treatment because it can last several months or longer if it is not treated. Treatment may include individual or group therapy, medicine, or both to address any social,physiological, and psychological factors that may play a role in the depression. Regular exercise, a healthy diet, rest, and social support may also be strongly recommended. psychosis is more serious and needs treatment right away. Hospitalization is often needed. HOME CARE INSTRUCTIONS Get as much rest as you can. Exercise regularly. Some women find yoga and walking to be beneficial. Eat a balanced and nourishing diet. Do little things that you enjoy. Have a cup of tea, take a bubble bath, read your favorite magazine, or listen to your favorite music. Avoid alcohol. Ask for help with orchardist, cooking, grocery shopping, or running errands as needed. Do nottry to do everything. Talk to people close to you about how you are feeling. Get support from your partner, family members, and friends. Try to stay positive in how you think. Think about the things you are grateful for. Do not spend a lot of time alone. Only take raok-zuh-wnzpxhn or prescription medicine as directed by your health care provider. Keep all your appointments. Let your health care provider know if you have any concerns. SEEK MEDICAL CARE IF: You are having a reaction to or problems with your medicine. SEEK IMMEDIATE MEDICAL CARE IF: You have suicidal feelings. You think you may harm yourself or someone else. MAKE SURE YOU: Understand these instructions. Will watch your condition. Will get help right away if you are not doing well or get worse. Resource: [facility] Patient Information 2015 [employer]. This information is not intended to replace advicegiven to you by your health care provider. Make sure you discuss any questions you have with your health care provider. 06/04/2023 15:11:30 Care After Vaginal Delivery Care After Vaginal Delivery This sheet gives you information about how to care for yourself from the time you deliver your babyto up to 6 12 weeks after delivery ( period). Your health care provider may also give youmore specific instructions. If you have problems or questions, contact your health care provider. Follow these instructions at home: Vaginal bleeding It is normal to have vaginal bleeding (lochia) after delivery. Wear a sanitary pad for vaginal bleeding and discharge. ?During the first week after delivery, the amount and appearance of lochia is often similar to a menstrual period. ?Over the next few weeks, it will gradually decrease to a dry, yellow-brown discharge. ?For most women, lochia stops completely by 4 6 weeks after delivery. Vaginal bleeding can vary from woman to woman. Change your sanitary pads frequently. Watch for any changes in your flow, such as: ?A sudden increase in volume. ?A change in color. ?Large blood clots. If you pass a blood clot from your vagina, save it and call your health care provider to discuss. Do not flush blood clots down the toilet before talking with your health care provider. Do not use tampons or douches until your health care provider says this is safe. If you are not , your period should return 6 8 weeks after delivery. If you are feeding your child breast milk only (exclusive ), your period may not return until you stop . Perineal care Keep the area between the vagina and the anus (perineum) clean and dry as told by your health care provider. Use medicated pads and pain-relieving sprays and creams as directed. If you had a cut in the perineum (episiotomy) or a tear in the vagina, check the area for signs of infection until you are healed. Check for: ?More redness, swelling, or pain. ?Fluid or blood coming from the cut or tear. ?Warmth. ?Pus or a bad smell. You may be given a squirt bottle to use instead of wiping to clean the perineum area after you go to the bathroom. As you start healing, you may use the squirt bottle before wiping yourself. Make sure to wipe gently. To relieve pain caused by an episiotomy, a tear in the vagina, or swollen veins in the anus (hemorrhoids), try taking a warm sitz bath 2 3 times a day. A sitz bath is a warm water bath that is taken while you are sitting down. The water should only come up to your hips and should cover your buttocks. Breast care Within the first few days after delivery, your breasts may feel heavy, full, and uncomfortable (breast engorgement). Milk may also leak from your breasts. Your health care provider can suggest ways to help relieve the discomfort. Breast engorgement should go away within a few days. If you are : ?Wear a bra that supports your breasts and fits you well. ?Keep your nipples clean and dry. Apply creams and ointments as told by your health care provider. ?You may need to use breast pads to absorb milk that leaks from your breasts. ?You may have uterine contractions every time you breastfeed for up to several weeks after delivery. Uterine contractions help your uterus return to its normal size. ?If you have any problems with , work with your health care provider or solutions architect consultant. If you are not : ?Avoid touching your breasts a lot. Doing this can make your breasts produce more milk. ?Wear a good-fitting bra and use cold packs to help with swelling. ?Do not squeeze out (express) milk. This causes you to make more milk. Intimacy and sexuality Ask your health care provider when you can engage in sexual activity. This may depend on: ?Your risk of infection. ?How fast you are healing. ?Your comfort and desire to engage in sexual activity. You are able to get after delivery, even if you have not had your period. If desired, talkwith your health care provider about methods of control (contraception). Medicines Take [id number] and prescription medicines only as told by your health care provider. If you were prescribed an antibiotic medicine, take it as told by your health care provider. Do notstop taking the antibiotic even if you start to feel better. Activity Gradually return to your normal activities as told by your health care provider. Ask your health care provider what activities are safe for you. Rest as much as possible. Try to rest or take a nap while your baby is sleeping. Eating and drinking Drink enough fluid to keep your urine pale yellow. Eat high-fiber foods every day. These may help prevent or relieve constipation. High-fiber foods include: ?Whole grain cereals and breads. ?Brown rice. ?Beans. ?Fresh fruits and vegetables. Do not try to lose weight quickly by cutting back on calories. Take your vitamins until your checkup or until your health care provider tells you it is okay to stop. Lifestyle Do not use any products that contain nicotine or tobacco, such as cigarettes and e-cigarettes. If you need help quitting, ask your health care provider. Do not drink alcohol, especially if you are . General instructions Keep all follow-up visits for you and your baby as told by your health care provider. Most women visit their health care provider for a checkup within the first 3 6 weeks after delivery. Contact a health care provider if: You feel unable to cope with the changes that your child brings to your life, and these feelings donot go away. You feel unusually sad or worried. Your breasts become red, painful, or hard. You have a fever. You have trouble holding urine or keeping urine from leaking. You have little or no interest in activities you used to enjoy. You have not breastfed at all and you have not had a menstrual period for 12 weeks after delivery. You have stopped and you have not had a menstrual period for 12 weeks after you stopped . You have questions about caring for yourself or your baby. You pass a blood clot from your vagina. Get help right away if: You have chest pain. You have difficulty breathing. You have sudden, severe leg pain. You have severe pain or cramping in your lower abdomen. You bleed from your vagina so much that you fill more than one sanitary pad in one hour. Bleeding should not be heavier than your heaviest period. You develop a severe headache. You faint. You have blurred vision or spots in your vision. You have bad-smelling vaginal discharge. You have thoughts about hurting yourself or your baby. If you ever feel like you may hurt yourself or others, or have thoughts about taking your own life,get help right away. You can go to the nearest emergency department or call: Your local emergency services (911 in the [place] A suicide crisis helpline, such as the National Suicide Prevention Lifeline at . Thisis open 24 hours a day. Summary The period of time right after you deliver your up to 6 12 weeks after delivery is called the period. Gradually return to your normal activities as told by your health care provider. Keep all follow-up visits for you and your baby as told by your health care provider. This information is not intended to replace advice given to you by your health care provider. Make sure you discuss any questions you have with your health care provider. Document Released: 06/06/2008 Document Revised: 08/13/2018 Document Reviewed: 05/24/2018 [employer] Patient Education 2020 [employer] Follow Up Care 06/04/2023 05:58:49 With:ASHKAN WALTERS MD Address: [address] [place] [address] [facility] [address]- [phone] When: Unknown Comments:Please schedule a chechup for three weeks from delivery [facility] 10-12-2023 Note Obstetrics progress note: Maryuri is now feeling some pelvic pressure. Cervix is examined to be 9 cm 90% effaced and 0 station bloody show is present heart rate tracing overall category 1. Like to be pushing soon. Digitally Signed by ASHKAN WALTERS MD on 06/04/2023 03:08 PM [facility]10-12-2023 Note Progress note: Subjective: Comfortable lying in bed after epidural placement. No significant nausea. Objective: Afebrile vital signs stable heart rate tracing category 1. Contractions every 3 minutes on toco monitor. Cervical exam 3 cm 50% posterior. Artificial rupture membranes performed withclear fluid noted. Plan: Continue Pitocin to effect adequate contractions expect . Digitally Signed by ASHKAN WALTERS MD on 06/04/2023 12:08 PM [facility]10-12-2023 Anesthesiology Consult note Patient: MARYURI ROSARIO Age: 27 years Sex: Female : 1995 Associated Diagnoses: None Author: CHRISTIANNE CERVANTES Preoperative Information Anesthesia history Patient's history: negative. Family's history: negative. Health Status Allergies: Allergic Reactions (Selected) NKA, Allergies (1) ActiveReaction NKANone Documented Current medications: (Selected) Inpatient Medications Ordered Bicitra: 30 mL, Oral, AsDirected, PRN: Gastric Upset Brethine: 0.25 mg, 0.25 mL, Subcutaneous, AsDirected, PRN: Control symptoms Cytotec: 1,000 mcg, 5 tab(s), Rectal, Once, PRN: Other (see order comments) Hemabate: 250 mcg, 1 mL, Intramuscular, Once, PRN: Other (see order comments) LR 1,000 mL: 125 mL/hr, Intravenous LR 500 mL Bolus: 500 mL, IV Bolus, AsDirected, PRN: Other (see order comments) Methergine: 0.2 mg, 1 mL, Intramuscular, Once, PRN: Other (see order comments) Nubain: 10 mg, 1 mL, IV Push, q2h, PRN: Pain Oxytocin for IV (mL/hr) 20 unit(s) + LR Premix Diluent 1,000 mL: 999 mL/hr, Intravenous Oxytocin for IV (munit/min) 20 unit(s) [2 munit/min] + LR Premix Diluent 1,000 mL: 6 mL/hr, Intravenous Pitocin: 20 unit(s), 2 mL, Intramuscular, Once, PRN: Other (see order comments) Xylocaine HCl 1% injectable solution: 20 mg, 2 mL, Perineum, AsDirected, PRN: to perineal sutures Zofran: 4 mg, 2 mL, IV Push, q4h, PRN: Nausea tranexamic acid 1 g / 100 mL 0.7% NaCl PMX: 1 gram(s), 100 mL, 300 mL/hr, IV Piggyback, AsDirected,PRN: Other (see order comments) Prescriptions Prescribed Multivitamins with FA 0.8 mg oral tablet: 1 tab(s), Oral, qDay, for 90 day(s), 90 tab(s), 2 Refill(s) Protonix 40 mg oral enteric coated tablet: 40 mg, 1 tab(s), Oral, qDay, for 90 day(s), 90 tab(s), 1Refill(s) ferrous sulfate 325 mg (65 mg elemental iron) oral tablet: 325 mg, 1 tab(s), Oral, BIDM, Take with food., 60 tab(s), 1 Refill(s) Documented Medications Documented ondansetron 4 mg oral tablet, disintegrating: TAKE 1 TABLET BY MOUTH EVERY 6 HOURS NEEDED FOR NAUSEA, Medications (14) Active Scheduled: (0) Continuous: (3) Lactated Ringers 1,000 mL 1,000 mL, Intravenous, 125 mL/hr Oxytocin 20 units in Lactated Ringers 1000 mL 20 unit(s) + LR Premix Diluent 1,000 mL 1,000 mL, Intravenous, 999 mL/hr Oxytocin 20 units in Lactated Ringers 1000 mL 20 unit(s) [2 munit/min] + LR Premix Diluent 1,000 mL1,000 mL, Intravenous, 6 mL/hr PRN: (11) carboprost 250 mcg/ml 1mL ampule 250 mcg 1 mL, Intramuscular, Once citric acid-sodium citrate 334 mg-500 mg/5 mL (30 mL) Cristela UD 30 mL, Oral, AsDirected Lactated Ringers Injection 500 mL * Bolus * 500 mL, IV Bolus, AsDirected lidocaine 1% (MPF) 2 mL vial pf 20 mg 2 mL, Perineum, AsDirected methylergonovine 0.2 mg/mL (1 mL) ampule 0.2 mg 1 mL, Intramuscular, Once misoprostol 200 mcg tablet 1,000 mcg 5 tab(s), Rectal, Once nalbuphine 10 mg/mL (1 mL) Solution 10 mg 1 mL, IV Push, q2h ondansetron 2 mg/ 1 mL 2 mL INJ 4 mg 2 mL, IV Push, q4h oxytocin 10 units/mL 1 mL vial 20 unit(s) 2 mL, Intramuscular, Once terbutaline 1 mg/ml vial 0.25 mg 0.25 mL, Subcutaneous, AsDirected tranexamic acid PMX 1 gram(s) 100 mL, IV Piggyback, AsDirected Problem list: Medical Depression / SNOMED CT 145177593 / Confirmed Encounter for supervision of normal in multigravida in third trimester / SNOMED CT [id number] / Confirmed / SNOMED CT [id number] / Confirmed, Active Problems (6) Back pain Depression Diarrhea Encounter for supervision of normal in multigravida in third trimester Vomiting Histories Past Medical History: Active Depression (148349901) Resolved ([id number]): Onset on 12/28/2014 at 19 years. Resolved on 10/09/2015 at 20 years. Possible , not confirmed ([id number]): Resolved. Comments: 01/27/2015 EDT 14:03 EDT - SYSTEM System added from documentation. Status documented as Possible on Admission Encounter for care of primigravida in second trimester, antepartum ([id number]): Resolved. Encounter for care of primigravida in third trimester, antepartum ([id number]): Resolved. Encounter for care in third trimester of first ([id number]): Resolved. Family History: Anxiety Mother Drug abuse Father Depression Mother Procedure history: Wrist ([id number]). Social History Social & Psychosocial Habits Alcohol 06/04/2023Risk Assessment: Denies Alcohol Use 06/04/2023 Use: Never Substance Abuse 06/04/2023Risk Assessment: Denies Substance Abuse 06/04/2023 Use: Never Tobacco 06/04/2023 Tobacco Use: Never (less than 100 in l 06/04/2023Risk Assessment: No Risk Nutrition/Health 06/04/2023 Caffeine intake amount: pop- 3-4 servings per month . Physical Examination Vital Signs 06/04/2023 11:15 EDT Heart Rate Monitored 94 bpm Respiratory Rate 18 br/min Systolic Blood Pressure Non-Invasive 111 mmHg Diastolic Blood Pressure Non-Invasive 60 mmHg 06/04/2023 11:14 EDT Heart Rate Monitored 99 bpm Respiratory Rate 16 br/min Systolic Blood Pressure Non-Invasive 124 mmHg Diastolic Blood Pressure Non-Invasive 81 mmHg 06/04/2023 11:10 EDT Heart Rate Monitored 88 bpm Respiratory Rate 16 br/min Systolic Blood Pressure Non-Invasive 125 mmHg Diastolic Blood Pressure Non-Invasive 78 mmHg 06/04/2023 11:00 EDT Heart Rate Monitored 81 bpm Respiratory Rate 18 br/min Systolic Blood Pressure Non-Invasive 117 mmHg Diastolic Blood Pressure Non-Invasive 75 mmHg 06/04/2023 10:01 EDT Temperature Oral 36.8 DegC Heart Rate Monitored 95 bpm Respiratory Rate 18 br/min Systolic Blood Pressure Non-Invasive 108 mmHg Diastolic Blood Pressure Non-Invasive 67 mmHg 06/04/2023 9:02 EDT Heart Rate Monitored 82 bpm Respiratory Rate 16 br/min Systolic Blood Pressure Non-Invasive 115 mmHg Diastolic Blood Pressure Non-Invasive 67 mmHg 06/04/2023 8:05 EDT Temperature Oral 36.5 DegC Heart Rate Monitored 93 bpm Respiratory Rate 16 br/min Systolic Blood Pressure Non-Invasive 114 mmHg Diastolic Blood Pressure Non-Invasive 74 mmHg 06/04/2023 6:15 EDT Temperature Oral 36.7 DegC Heart Rate Monitored 121 bpm HI Respiratory Rate 18 br/min Systolic Blood Pressure Non-Invasive 112 mmHg Diastolic Blood Pressure Non-Invasive 83 mmHg Vital Signs(last 24 hrs) Last Charted Temp Oral36.8 DegC (JUN 04 10:01) Heart Rate [id number] bpm (JUN 04) Resp Rate 18 br/min (JUN 04:15) PFD301 mmHg (JUN 04:15) DBP60 mmHg (JUN 04:15) BMI30.26 (JUN 04 06:04) Measurements from flowsheet : Measurements 06/04/2023 6:04 EDT Height 155 cm Admission Weight 72.7 kg Harmony Body Weight 47.85 kg BSA Admission 1.72 Body Mass Index 30.26 kg/m2 Pain assessment: Pain Assessment 06/04/2023 8:05 EDT Primary Pain Intensity 0 Pain Scale Type 0-10 Pain scale 06/04/2023 6:15 EDT Primary Pain Intensity 0 Pain Scale Type 0-10 Pain scale . General: Alert and oriented, Moderate distress. Airway: Normal temporomandibular joint mobility. Mallampati classification: II (soft palate, fauces, uvula visible). Dentition Evaluation: Denies loose/chipped teeth. Respiratory: Lungs are clear to auscultation. Cardiovascular: Normal rate, Regular rhythm. Neurologic: Alert, Oriented. Review / Management Results review: Labs (Last four charted values) WBC 6.4(JUN 04) Hgb L 11.7(JUN 04) Hct L 33.7(JUN 04) Plt 168(JUN 04) , Lab results 06/04/2023 11:15 EDT Heart Rate Monitored 94 bpm Respiratory Rate 18 br/min Systolic Blood Pressure Non-Invasive 111 mmHg Diastolic Blood Pressure Non-Invasive 60 mmHg Oxygen Saturation 97 % 06/04/2023 11:14 EDT Heart Rate Monitored 99 bpm Respiratory Rate 16 br/min Systolic Blood Pressure Non-Invasive 124 mmHg Diastolic Blood Pressure Non-Invasive 81 mmHg Oxygen Saturation 97 % 06/04/2023 11:10 EDT Heart Rate Monitored 88 bpm Respiratory Rate 16 br/min Systolic Blood Pressure Non-Invasive 125 mmHg Diastolic Blood Pressure Non-Invasive 78 mmHg Oxygen Saturation 97 % 06/04/2023 11:08 EDT Epidural Patient Position Side of bed, leaning forward with support Epidural Placed By CHRISTIANNE CERVANTES APRN-[employer] REPAIR Epidural Test Dose Time 06/04/2023 11:08 Epidural Care Patient Response Tolerated well 06/04/2023 11:00 EDT Heart Rate Monitored 81 bpm Respiratory Rate 18 br/min Systolic Blood Pressure Non-Invasive 117 mmHg Diastolic Blood Pressure Non-Invasive 75 mmHg Uterine Contraction Monitoring Method External toco Uterine Contraction Frequency 2-4 Uterine Contraction Duration 40-60 Uterine Contraction Intensity, Ext Palp Moderate Uterine Resting Tone, External Soft Uterine Activity Regular contractions Baby A FHR Baseline: 145 bpm FHR Baseline Variability: Moderate variability FHR Accelerations: Present FHR Deceleration: Absent FHR Monitoring Method: External US transducer 06/04/2023 10:47 EDT Cervix Dilation 3 cm Cervix Effacement 50 Station -3 Cervical Consistency Medium Cervical Position Posterior Presenting Part Vertex Vaginal Exam Performed By DUSTIN Waters Prajapati's Score 4 Vaginal Discharge Description Bloody show small Station Calculation -3 06/04/2023 10:01 EDT Temperature Oral 36.8 DegC Heart Rate Monitored 95 bpm Respiratory Rate 18 br/min Systolic Blood Pressure Non-Invasive 108 mmHg Diastolic Blood Pressure Non-Invasive 67 mmHg Uterine Contraction Monitoring Method External toco Uterine Contraction Frequency q3 Uterine Contraction Duration 40-50 Uterine Contraction Intensity, Ext Palp Mild Uterine Resting Tone, External Soft Uterine Activity Regular contractions Baby A FHR Baseline: 145 bpm FHR Baseline Variability: Moderate variability FHR Accelerations: Present FHR Deceleration: Absent FHR Monitoring Method: External US transducer oxytocin 8 munit/min unit(s) LR Premix Diluent LR Premix Diluent mL 06/04/2023 9:35 EDT Monitoring Annotations Pt ambulating in the hallway 06/04/2023 9:30 EDT oxytocin 6 munit/min unit(s) LR Premix Diluent LR Premix Diluent mL 06/04/2023 9:02 EDT Heart Rate Monitored 82 bpm Respiratory Rate 16 br/min Systolic Blood Pressure Non-Invasive 115 mmHg Diastolic Blood Pressure Non-Invasive 67 mmHg Uterine Contraction Monitoring Method External toco Uterine Contraction Intensity, Ext Palp Not palpable Uterine Resting Tone, External Soft Uterine Activity Occasional contractions Patient Position, OB Sitting Baby A FHR Baseline: 140 bpm FHR Baseline Variability: Moderate variability FHR Accelerations: Present FHR Deceleration: Absent FHR Monitoring Method: External US transducer 06/04/2023 8:50 EDT oxytocin 4 munit/min unit(s) LR Premix Diluent LR Premix Diluent mL 06/04/2023 8:27 EDT [place] History and Physical 06/04/2023 8:14 EDT oxytocin Begin Bag 2 mL unit(s) LR Premix Diluent Begin Bag 1,000 mL mL 06/04/2023 8:11 EDT Cervix Dilation 2 cm Cervix Effacement 50 Station -3 Cervical Consistency Medium Cervical Position Posterior Presenting Part Vertex Vaginal Exam Performed By PREETI ALVARADO, ASHKAN Gold Prajapati's Score 3 Station Calculation -3 06/04/2023 8:06 EDT ondansetron 4 mg mg 06/04/2023 8:05 EDT Temperature Oral 36.5 DegC Heart Rate Monitored 93 bpm Respiratory Rate 16 br/min Systolic Blood Pressure Non-Invasive 114 mmHg Diastolic Blood Pressure Non-Invasive 74 mmHg Primary Pain Intensity 0 Pain Scale Type 0-10 Pain scale Uterine Contraction Monitoring Method External toco Uterine Contraction Intensity, Ext Palp Not palpable Uterine Resting Tone, External Soft Uterine Activity Not darcy Patient Position, OB Sitting Baby A FHR Baseline: 145 bpm FHR Baseline Variability: Moderate variability FHR Accelerations: Present FHR Monitoring Method: External US transducer 06/04/2023 8:02 EDT WBC 6.4 10^3/mcL RBC 3.78 10^6/mcL LOW Hgb 11.7 G/dL LOW Hct 33.7 % LOW MCV 88.9 fL MCH 31.0 pg MCHC 34.9 G/dL RDW 13.3 % Platelet 168 10^3/mcL MPV 8.5 fL Neutrophil % 69.7 % Lymphocyte % 21.7 % Monocyte % 7.9 % Eosinophil % 0.4 % Basophil % 0.3 % Neutrophil, Absolute 4.4 10^3/mcL Lymphocyte, Absolute 1.4 10^3/mcL Monocyte, Absolute 0.5 10^3/mcL Eosinophil, Absolute 0.0 10^3/mcL Basophil, Absolute 0.0 10^3/mcL ABO/Rh Interp A POS Antibody Screen Gel Negative ABSC 06/04/2023 7:57 EDT Wrist Right 06/04/2023 20 gauge Peripheral IV Activity: Field start Peripheral IV Dressing Condition: Clean, Dry, Intact Peripheral IV Dressing Activity: Transparent dressing Peripheral IV Line Status/Patency: Flushes easily, Good blood return Peripheral IV Line Care: Alcohol port cap(s) in place, Date/time/initials present, Needleless Protector End Cap(s) in place, Extension tubing changed, Secured with tape Peripheral IV Site Condition: No complications Peripheral IV Equipment: Extension set, Stopcock, IV Pump Peripheral IV Number of Attempts: 2 06/04/2023 6:52 EDT Notify date/time 06/04/2023 6:52 Provider Notified ASHKAN WALTERS MD Notification Method Phone Information Communicated Patient arrival, Nurse communication Details Communicated pt here for IOL, gbs -, VE 1/20%/-3 posterior, 39weeks, need previous OB records for labs Notification Outcome Orders received Person Reporting Result(s) Lyle Eastman RN Details of Results Received will check chart, start pit at 2 mu increase 2 mu q30min Results Read Back Yes 06/04/2023 6:26 EDT Cervix Dilation 1 cm Cervix Effacement 20 Station -3 Cervical Consistency Medium Cervical Position Posterior Presenting Part Vertex Vaginal Exam Performed By Cassandra Alvarenga RN Uterine Contraction Monitoring Method External toco Uterine Resting Tone, External Soft Uterine Activity Uterine irritability Baby A FHR Baseline: 145 bpm FHR Baseline Variability: Moderate variability FHR Accelerations: Present FHR Deceleration: Present FHR Deceleration Description: Variable FHR Monitoring Method: External US transducer Prajapati's Score 2 Station Calculation -3 Baby A Membrane Status: Intact 06/04/2023 6:15 EDT Temperature Oral 36.7 DegC Heart Rate Monitored 121 bpm HI Respiratory Rate 18 br/min Systolic Blood Pressure Non-Invasive 112 mmHg Diastolic Blood Pressure Non-Invasive 83 mmHg Primary Pain Intensity 0 Pain Scale Type 0-10 Pain scale Standard Safety Safety level maintained 06/04/2023 6:06 EDT Baby A Heart Tone: 140 06/04/2023 6:04 EDT Rubella, External Immune Rubella Date Performed 11/21/2022 HIV Antibodies, External Negative Group B Strep, External Negative Group B Strep Date Performed 05/11/2023 Hepatitis B, External Negative Hepatitis B Date Performed 11/21/2022 RPR, External Nonreactive Designated Person #1 We May Share PHI sunita samayoa Designated Person #1 Relationship Mother Privacy Restrictions Requested None Height 155 cm Admission Weight 72.7 kg Harmony Body Weight 47.85 kg BSA Admission 1.72 Body Mass Index 30.26 kg/m2 Expected Outcome Live Patient Type Inpatient Thrombosis Risk Factors (1) or post- less than 1 month Thrombosis Risk Factor Add'l Assessment (1) Varicose veins or current swollen legs (greater than 1 p Thrombosis Risk Score 2 Status Yes Risk Factors, Antepartum Current Preg None PPH Risk Low risk for hemorrhage PPH Low Risk Factors [place] , Less than 4 previous deliveries, Unscarred uterus, Absence of hemorrhage history Feeding Formula Anesthesia/Pain Medication During Labor Epidural/Spinal Baby For Adoption No Surrogate No Discharge Tracy Physician orin wen [facility] Participant Yes Safe Sleep Environment for Baby Yes Safe Sleep Environment Outside Home Yes Maternal Transport No Thoughts of Harming Others - History No Thoughts of Suicide - History No Coping Effective Emotional Abuse History Denies Physical Abuse History Denies Sexual Abuse Denies Hospital Clergy to Visit Patient Verbalizes No Spiritual Needs Financial Concerns Re: Hospital/Disch No Living Situation Home independently Current Home Treatments None Professional Skilled Services None Special Services and Community Resources None Advanced Directives No - refuses information Infectious Disease Symptoms Patient states no symptoms Infectious Disease Recent Exposure No Alcohol and Drug Use No Employee of Institutional Living No Health Care Employee No History of Exposure to TB No History of Positive Chest X-Ray for TB No History of Positive TB Skin Test No Homeless No Known Immunosuppression No Recent Immigrant No Resident of Institutional Living No Bloody Sputum No Fatigue No Fever No Loss of Appetite No Night Sweats No Persistent Cough > 3 Weeks No Weight Loss No Preferred Spoken Language Colombian Preferred Written Language Colombian Teaching Evaluation Verbalizes/Nonverbally indicates understanding Safety Brochure Information Reviewed Unable to complete [facility] Video Viewed Patient refused Chief Complaint IOL Mode of Arrival Ambulatory Information Given by Patient Patient's Current Physicians preeti Emergency Contact Number maribel samayoa [phone] Belongings At Bedside Cell phone, Mold Cooler, Luggage, Pt participated in reconciliation Personal Home Medications Received Other: , protonix, ferrous sulfate, zofran Belongings Sent Home None Belongings to Security/Secured in Dept None Discharge To, Anticipated Home independently Other Anticipated Needs After Discharge No Anticoagulants Taken In Past 6 Wks. No Prev Test Positive/Diagnosis w/COVID-19 Yes Previous COVID-19 Positive Date 2020 Current Quarantine/Isolated any Illness No Any Contact with Sick Animals/Birds Unable to obtain Traveled Anywhere in Last 30 Days No Influenza Vaccine Need No prior receipt of vaccine Influenza Risk Factors age 6 months and older Influenza Vaccine Contraindications None Forego Influenza Vaccination Patient/Caregiver refused vaccine No Able To Drink Order Detail Yes Able To Sign Consents Order Detail Yes Code Status Order Detail Full code IV Order Detail No Dialysis Schedule Order Detail N/A Has Diabetes Order Detail No Isolation Precautions Order Detail None Nurse Collect Order Detail 0 Oxygen Order Detail No Order Detail Yes Prior Valve Replacement Order Detail No Transport Mode Order Detail Ambulatory Anesthesia/Transfusions Prior anesthesia Admission Note-Nursing Patient History OB (Modified) . Assessment and Plan [place] [employer] (ASA) physical status classification: Class II. Anesthetic Preoperative Plan Anesthetic technique: Epidural. Regional: Epidural. Postoperative pain management: Per surgeon. Risks discussed: nausea, vomiting, headache, hypotension, allergic reaction, serious complications. Informed consent: signed by patient. Digitally Signed by CHRISTIANNE CERVANTES on 06/04/2023 11:21 AM [facility]10-12-2023 Note [place] ADMISSION HISTORY AND PHYSICIAL CHIEF COMPLAINT: 2 para 1 at 39 weeks estimated gestational age with uncomplicated admitted for elective induction of labor. HISTORY OF PRESENT ILLNESS: Uncomplicated term . GBS screening was negative. REVIEW OF SYSTEMS: No signs of labor or spontaneous rupture membranes at home. Good movement.No fevers, dysuria, diarrhea. A little nauseous this morning. No bleeding. ACTIVE PROBLEMS: (6) Back pain ([id number]) Depression ([id number]) Diarrhea ([id number]) Encounter for supervision of normal in multigravida in third trimester ([id number]) ([id number]) Vomiting ([id number]) MEDICATIONS: Active Inpt Meds: None Active PRN Meds: Lactated Ringers Infusion (LR 500 mL Bolus) Start: 06/04/23 6:54:00 EDT, Dose = 500 mL, Soln, IV Bolus, AsDirected, PRN, Other (see order comments), Rate: 999 mL/hr, hour(s), 06/04/23 6:54:00 EDT carboprost (Hemabate) Start: 06/04/23 6:54:00 EDT, Dose = 250 mcg, = 1 mL, Intramuscular, Once, PRN, Other (see order comments), 06/04/23 6:54:00 EDT citric acid-sodium citrate (Bicitra) Start: 06/04/23 6:54:00 EDT, Dose = 30 mL, Soln, Oral, AsDirected, PRN, Gastric Upset, 06/04/23 6:54:00 EDT lidocaine (Xylocaine HCl 1% injectable solution) Start: 06/04/23 6:54:00 EDT, Dose = 20 mg, = 2 mL,Perineum, AsDirected, PRN, to perineal sutures, 1 dose(s), Stop: Limited # of times, 06/04/23 6:54:00 EDT methylergonovine (Methergine) Start: 06/04/23 6:54:00 EDT, Dose = 0.2 mg, = 1 mL, Intramuscular, Once, PRN, Other (see order comments), 06/04/23 6:54:00 EDT miSOPROStol (Cytotec) Start: 06/04/23 6:54:00 EDT, Dose = 1,000 mcg, = 5 tab(s), Rectal, Once, PRN,Other (see order comments), 0, 06/04/23 6:54:00 EDT nalbuphine (Nubain) Start: 06/04/23 6:54:00 EDT, Dose = 10 mg, = 1 mL, IV Push, q2h, PRN, Pain, 06/04/23 6:54:00 EDT ondansetron (Zofran) Start: 06/04/23 6:54:00 EDT, Dose = 4 mg, = 2 mL, IV Push, q4h, PRN, Nausea, 06/04/23 6:54:00 EDT oxytocin (Pitocin) Start: 06/04/2354:00 EDT, Dose = 20 unit(s), = 2 mL, Intramuscular, Once, PRN, Other (see order comments), 06/04/23 6:54:00 EDT terbutaline (Brethine) Start: 06/04/23 6:55:00 EDT, Dose = 0.25 mg, = 0.25 mL, Subcutaneous, AsDirected, PRN, Control symptoms, directed by physician for episode of tachysystole resulting in prolonged bradycardia (lasting greater than 3 minutes) and/or late decelerati... tranexamic acid (tranexamic acid 1 g / 100 mL 0.7% NaCl PMX) Start: 06/04/23 6:54:00 EDT, Dose = 1 gram(s), = 100 mL, IV Piggyback, AsDirected, PRN, Other (see order comments), Rate: 300 mL/hr, Infuse over: 20 minute(s), 0, 06/04/23:54:00 EDT One Time Meds: None Active IV Meds: Lactated Ringers Infusion 1,000 mL (LR 1,000 mL) Start: 06/04/23 6:54:00 EDT, Rate: 125 mL/hr, 06/04/23 6:54:00 EDT oxytocin 20 unit(s) + LR Premix Diluent 1,000 mL (Oxytocin for IV (mL/hr) 20 unit(s) + LR Premix Diluent 1,000 mL) Start: 06/04/23 6:54:00 EDT, Rate: 999 mL/hr, 06/04/23 6:54:00 EDT oxytocin 20 unit(s) [2 munit/min] + LR Premix Diluent 1,000 mL (Oxytocin for IV (munit/min) 20 unit(s) [2 munit/min] + LR Premix Diluent 1,000 mL) Start: 06/04/23 6:55:00 EDT, Start at 2 milliunits/minute Piggyback at closest IV port via infusion pump. Increase rate 2 milliunits every 30 minutes until contractions are no closer than every 2 minutes. Do not exceed 30 milliunits/minute, Rate: 6 m... ALLERGIES: (1) NKA FAMILY HISTORY: No significant family history pertaining to this admission SOCIAL HISTORY: Ex-smoker. No alcohol or drug use. Stable home. PHYSICAL EXAM: VITALS: [id number](kg) 06/04 08:0536.5--9316----06/04 72.7 06/04 06:1536.7--35506---- 24 Hr Tmax: 36.7 at 06/04 06:15 36 Hr Tmax: 36.7 at 06/04 06:15 Vital Signs are the last 5 in the past 48 hours. Weights display the last 5 within 7 days. Initial Wt: 06/04 72.7 kg 160 lb Current Wt: 06/04 72.7 kg 160 lb GENERAL: Appears well HEENT: Normocephalic CARDIOVASCULAR: Regular rate and rhythm normal blood pressure RESPIRATORY: Clear bilaterally ABDOMEN: Gravid consistent with dating vertex presentation CERVIX: 2 to 3 cm 50% effaced -3 station membranes intact EXREMETIES: No edema NEUROLOGICAL: Intact PSYCHIATRIC: No signs of acute depression or anxiety LABS: 36hr Labs 06/04 0802 Hct33.7L Hgb11.7L MCH31.0 MCHC34.9 MCV88.9 MPV8.5 Paequllj484 RBC3.78L RDW13.3 WBC6.4 Lymphocyte %21.7 Monocyte %7.9 Neutrophil %69.7 Eosinophil %0.4 Basophil %0.3 Neutrophil, Absolute4.4 Lymphocyte, Absolute1.4 Monocyte, Absolute0.5 Eosinophil, Absolute0.0 Basophil, Absolute0.0 06/04 0604 Rubella, ExternSee Flowsheet Rubella Date Performed1:[id number]:[id number]:0:0 HIV Antibodies,See Flowsheet Group B Strep,See Flowsheet Hepatitis B, ExSee Flowsheet Hepatitis B Date Performed1:[id number]:0.150367:0:0 RPR, ExternalSee Flowsheet Group B Strep Date Performed1:[id number]:0.004232:0:0 DIAGNOSTICS: Reassuring category 1 heart rate tracing. No contractions on toco monitor IMPRESSION: Uncomplicated term admitted for elective induction of labor. Favorable cervix. PLAN: Plan for Pitocin induction of labor. Artificial rupture membranes when appropriate. Epidural if desired. Digitally Signed by ASHKAN WALTERS MD on 06/04/2023 08:30 AM [facility]08-31-2023 NoteHNO ID: [id number] Author: Quinn Lopez APRN.COMPUTER SECURITY MANAGER Service: ? Author Type: Nurse Practitioner Type: Progress Notes Filed: 04/23/2023 9:11 AM Note Text: Subjective HPI 31-week female presents to urgent care with chief complaint of upper respiratory tract like infection. Duration of symptoms 3 days. Associated symptoms sore throat, nasal congestion, nasal discharge and nonproductive cough. Patient denies the use of any mday-jst-tjhhwhg medications or home remedies for symptom management. 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 Good movement no vaginal discharge. Patient denies any productive cough, fever, chest pain, shortness of breath, pleuritic pain, rash, abdominal pain, nausea, vomiting or change in bowel or bladder habit. Past medical history prescription medication use allergies reviewed. .Patient presents with: Nasal Congestion: Sinus pressure, cough, ROQUE x3 days PAST MEDICAL HISTORY Diagnosis Date Childhood asthma Migraine PAST SURGICAL HISTORY Procedure Laterality Date WRIST SURGERY HX Right cyst removed ALLERGIES Patient has no known allergies. MEDICATIONS 28 mg iron- 800 mcg tab Take 1 tablet by mouth every afternoon. pantoprazole DR (PROTONIX) 40 mg tablet Take 1 tablet by mouth every afternoon. Ferrous Gluconate (FERGON) 324 mg (38 mg iron) tablet TAKE 1 TABLET BY MOUTH TWICE A DAY X1 MONTH famotidine (PEPCID) 20 mg tablet (Patient not taking: Reported on 04/23/2023) fluticasone (FLONASE) 50 mcg/actuation nasal spray Use 2 Sprays in each nostril once daily. Rinse mouth after use. (Patient not taking: Reported on 04/23/2023) propranolol (INDERAL) 10 mg tablet Take 10 mg by mouth twice daily. (Patient not taking: Reported on 12/05/2022) rizatriptan (MAXALT) 10 mg tablet 10 MG EVERY 2 HOURS NEEDED FOR MIGRAINE HEADACHE MAY REPEAT DOSE AFTER 2 HOURS UP TO 3 DOSES/DAY (Patient not taking: Reported on 12/05/2022) History reviewed. No pertinent family history. Social History Tobacco Use Smoking status: Former Smokeless tobacco: Never BP 117/76 Pulse 108 Temp 36.7 ?C (98 ?F) Resp 18 Wt 73.6 kg (162 lb 3.2 oz) LMP 08/29/2022 (Approximate) SpO2 98% Review of Systems Constitutional: Positive for malaise/fatigue. Negative for chills and fever. HENT: Positive for congestion, sinus pain and sore throat. Negative for ear discharge and ear pain. Eyes: Negative for blurred vision, pain, discharge and redness. Respiratory: Positive for cough. Negative for hemoptysis, sputum production, shortness of breath, wheezing and stridor. Cardiovascular: Negative for chest pain. Gastrointestinal: Negative for abdominal pain, diarrhea, nausea and vomiting. Musculoskeletal: Positive for myalgias. Skin: Negative for itching and rash. Neurological: Negative for dizziness and headaches. Objective Physical Exam Constitutional: General: She is not in acute distress. Appearance: She is not diaphoretic. HENT: Head: Normocephalic. Jaw: No trismus, tenderness, swelling or pain on movement. Right Ear: Tympanic membrane, ear canal and external ear normal. Left Ear: Tympanic membrane, ear canal and external ear normal. Nose: Congestion present. Mouth/Throat: Mouth: Mucous membranes are moist. Pharynx: Oropharynx is clear. Uvula midline. No pharyngeal swelling, oropharyngeal exudate, posterior oropharyngeal erythema or uvula swelling. Eyes: Conjunctiva/sclera: Conjunctivae normal. Pupils: Pupils are equal, round, and reactive to light. Cardiovascular: Rate and Rhythm: Normal rate and regular rhythm. Heart sounds: Normal heart sounds. Pulmonary: Effort: Pulmonary effort is normal. No tachypnea, accessory muscle usage or respiratory distress. Breath sounds: Normal breath sounds. No stridor. No wheezing, rhonchi or rales. Abdominal: General: There is no distension. Palpations: Abdomen is soft. Tenderness: There is no abdominal tenderness. There is no guarding or rebound. Musculoskeletal: Cervical back: Normal range of motion and neck supple. No edema, erythema, rigidity or tenderness. No pain with movement. Normal range of motion. Lymphadenopathy: Cervical: No cervical adenopathy. Skin: General: Skin is warm and dry. Neurological: Mental Status: She is alert and oriented to person, place, and time. ASSESSMENT/PLAN: 1. URI, acute - ICD9: 465.9, ICD10: J06.9 Diagnosed with viral illness. COVID-19 influenza RSV test offered declined testing at this time. Red flags prompt relation discussed. Patient was educated on supportive therapies. Patient will follow up with primary care provider as needed. Patient was instructed to immediately proceed to emergency room for any new, worsening, or symptoms lasting longer than anticipated. The patient's clinical presentation is otherwise unremarkable at this time. Based on exam and clinical finding, the patient is st (more content not included)...[facility]08-31-2023 History of Present illness Narrative* Quinn Lopez, CHIO.[facility] - 04/23/2023 8:50 AM EDT Subjective HPI 31-week female presents to urgent care with chief complaint of upper respiratory tract like infection. Duration of symptoms 3 days. Associated symptoms sore throat, nasal congestion, nasal discharge and nonproductive cough. Patient denies the use of any bumn-psj-omosham medications or homeremedies for symptom management. 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 Good movement no vaginal discharge. Patient denies any productive cough, fever, chest pain, shortness of breath, pleuritic pain, rash, abdominal pain, nausea, vomiting or change in bowel or bladderhabit. Past medical history prescription medication use allergies reviewed. .Patient presents with: Nasal Congestion: Sinus pressure, cough, ROQUE x3 days PAST MEDICAL HISTORY Diagnosis Date Childhood asthma Migraine PAST SURGICAL HISTORY Procedure Laterality Date WRIST SURGERY HX Right cyst removed ALLERGIES Patient has no known allergies. MEDICATIONS 28 mg iron- 800 mcg tab Take 1 tablet by mouth every afternoon. pantoprazole DR (PROTONIX) 40 mg tablet Take 1 tablet by mouth every afternoon. Ferrous Gluconate (FERGON) 324 mg (38 mg iron) tablet TAKE 1 TABLET BY MOUTH TWICE A DAY X1 MONTH famotidine (PEPCID) 20 mg tablet (Patient not taking: Reported on 04/23/2023) fluticasone (FLONASE) 50 mcg/actuation nasal spray Use 2 Sprays in each nostril once daily. Rinse mouth after use. (Patient not taking: Reported on 04/23/2023) propranolol (INDERAL) 10 mg tablet Take 10 mg by mouth twice daily. (Patient not taking: Reported on 12/05/2022) rizatriptan (MAXALT) 10 mg tablet 10 MG EVERY 2 HOURS NEEDED FOR MIGRAINE HEADACHE MAY REPEAT DOSE AFTER 2 HOURS UP TO 3 DOSES/DAY (Patient not taking: Reported on 12/05/2022) History reviewed. No pertinent family history. Social History Tobacco Use Smoking status: Former Smokeless tobacco: Never BP 117/76 Pulse 108 Temp 36.7 C (98 F) Resp 18 Wt 73.6 kg (162 lb 3.2 oz) LMP 08/29/2022 (Approximate) SpO2 98% Review of Systems Constitutional: Positive for malaise/fatigue. Negative for chills and fever. HENT: Positive for congestion, sinus pain and sore throat. Negative for ear discharge and ear pain. Eyes: Negative for blurred vision, pain, discharge and redness. Respiratory: Positive for cough. Negative for hemoptysis, sputum production, shortness of breath, wheezing and stridor. Cardiovascular: Negative for chest pain. Gastrointestinal: Negative for abdominal pain, diarrhea, nausea and vomiting. Musculoskeletal: Positive for myalgias. Skin: Negative for itching and rash. Neurological: Negative for dizziness and headaches. Objective Physical Exam Constitutional: General: She is not in acute distress. Appearance: She is not diaphoretic. HENT: Head: Normocephalic. Jaw: No trismus, tenderness, swelling or pain on movement. Right Ear: Tympanic membrane, ear canal and external ear normal. Left Ear: Tympanic membrane, ear canal and external ear normal. Nose: Congestion present. Mouth/Throat: Mouth: Mucous membranes are moist. Pharynx: Oropharynx is clear. Uvula midline. No pharyngeal swelling, oropharyngeal exudate, posterior oropharyngeal erythema or uvula swelling. Eyes: Conjunctiva/sclera: Conjunctivae normal. Pupils: Pupils are equal, round, and reactive to light. Cardiovascular: Rate and Rhythm: Normal rate and regular rhythm. Heart sounds: Normal heart sounds. Pulmonary: Effort: Pulmonary effort is normal. No tachypnea, accessory muscle usage or respiratory distress. Breath sounds: Normal breath sounds. No stridor. No wheezing, rhonchi or rales. Abdominal: General: There is no distension. Palpations: Abdomen is soft. Tenderness: There is no abdominal tenderness. There is no guarding or rebound. Musculoskeletal: Cervical back: Normal range of motion and neck supple. No edema, erythema, rigidity or tenderness. No pain with movement. Normal range of motion. Lymphadenopathy: Cervical: No cervical adenopathy. Skin: General: Skin is warm and dry. Neurological: Mental Status: She is alert and oriented to person, place, and time. ASSESSMENT/PLAN: 1. URI, acute - ICD9: 465.9, ICD10: J06.9 Diagnosed with viral illness. COVID-19 influenza RSV test offered declined testing at this time. Red flags prompt relation discussed. Patient was educated on supportive therapies. Patient will followup with primary care provider as needed. Patient was instructed to immediately proceed to emergencyroom for any new, worsening, or symptoms lasting longer than anticipated. The patient's clinical presentation is otherwise unremarkable at this time. Based on exam and clinical finding, the patient is stable for discharge. Plan of care was discussed with patient. Patient verbalizes understanding and agrees to plan of care. This note was generated using SiTime software. It may contain errors in wording, punctuation, or spelling. Quinn Lopez APRN.DISHA documented in this encounterAs[facility]05-[facility]23 NoteHNO ID: [id number] Author: Kerrie Tate APRN.DISHA Service: ? Author Type: Nurse Practitioner Type: Progress Notes Filed: 01/12/2023 12:30 PM Note Text: Patient triaged at [facility]. Here today with worsening sob, no uri symptoms. 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 I will refer to ER. Patient in no apparent distress at time of triage.[facility]04-14-2023 Miscellaneous Notes* Addendum Note - Mikki Kramer APRN.CNP - 12/05/2022 12:27 PM EDTAddended by: MIKKI KRAMER on: 12/05/2022 12:27 PM Modules accepted: Orders documented in this encounterAshtabula [facility]04-14-2023 NoteHNO ID: [id number] Author: Mikki Kramer APRN.CNP Service: ? Author Type: Nurse Practitioner Type: Progress Notes Filed: 12/05/2022 9:59 AM Note Text: This note was created using Recite Me. Lai Rosario is a 27 year old female. 27 year old female with no PMH presents for illness. Acute onset 2 days ago +cough +nasal congestion +sinus pressure +ear pressure and pain Denies N/V/D Denies fever or chills Denies hemoptysis. 13 weeks OB () Has used cough drops Denies tobacco usage. The history is provided by the patient. No apprenticeship consultant was used. Cough This is a new problem. The current episode started 2 days ago. The problem occurs constantly. The problem has been gradually worsening. The cough is Non-productive. There has been no fever. Associated symptoms include ear congestion, ear pain and sore throat. Pertinent negatives include no chest pain, no chills, no sweats, no weight loss, no headaches, no rhinorrhea, no myalgias, no shortness of breath, no wheezing and no eye redness. She has tried nothing for the symptoms. She is not a smoker. Her past medical history does not include bronchitis, pneumonia, bronchiectasis, COPD, emphysema or asthma. PAST MEDICAL HISTORY Diagnosis Date Childhood asthma Migraine PAST SURGICAL HISTORY Procedure Laterality Date WRIST SURGERY HX Right cyst removed ALLERGIES Patient has no known allergies. MEDICATIONS fluticasone (FLONASE) 50 mcg/actuation nasal spray Use 2 Sprays in each nostril once daily. Rinse mouth after use. amoxicillin (AMOXIL) 875 mg tablet Take 1 tablet by mouth twice daily for 7 days. propranolol (INDERAL) 10 mg tablet Take 10 mg by mouth twice daily. (Patient not taking: Reported on 12/05/2022) rizatriptan (MAXALT) 10 mg tablet 10 MG EVERY 2 HOURS NEEDED FOR MIGRAINE HEADACHE MAY REPEAT DOSE AFTER 2 HOURS UP TO 3 DOSES/DAY (Patient not taking: Reported on 12/05/2022) No family history on file. Social History Tobacco Use Smoking status: Former Smokeless tobacco: Never Review of Systems Constitutional: Positive for fatigue. Negative for chills, fever and weight loss. HENT: Positive for congestion, ear pain and sore throat. Negative for rhinorrhea. Eyes: Negative for pain, discharge, redness and itching. Respiratory: Positive for cough. Negative for shortness of breath and wheezing. Cardiovascular: Negative for chest pain and leg swelling. Gastrointestinal: Negative for abdominal pain, diarrhea, nausea and vomiting. Musculoskeletal: Negative for arthralgias, back pain and myalgias. Skin: Negative for color change, pallor, rash and wound. Allergic/Immunologic: Negative for environmental allergies, food allergies and immunocompromised state. Neurological: Negative for headaches. Hematological: Negative for adenopathy. Does not bruise/bleed easily. Psychiatric/Behavioral: Negative for agitation and behavioral problems. Objective BP 120/68 Pulse 102 Temp 36.7 ?C (98.1 ?F) (Tympanic) Resp 18 Wt 60.8 kg (134 lb) LMP 08/29/2022 (Approximate) SpO2 99% Physical Exam Vitals and nursing note reviewed. Constitutional: General: She is not in acute distress. Appearance: Normal appearance. She is normal weight. She is not ill-appearing, toxic-appearing or diaphoretic. HENT: Head: Normocephalic and atraumatic. Right Ear: Ear canal and external ear normal. Left Ear: Ear canal and external ear normal. Ears: Comments: Bilateral TM's erythematous, left greater than right. Nose: Nose normal. No congestion or rhinorrhea. Mouth/Throat: Mouth: Mucous membranes are moist. Pharynx: No oropharyngeal exudate or posterior oropharyngeal erythema. Eyes: General: Right eye: No discharge. Left eye: No discharge. Extraocular Movements: Extraocular movements intact. Conjunctiva/sclera: Conjunctivae normal. Pupils: Pupils are equal, round, and reactive to light. Cardiovascular: Rate and Rhythm: Normal rate and regular rhythm. Pulses: Normal pulses. Heart sounds: Normal heart sounds. No murmur heard. No friction rub. Pulmonary: Effort: Pulmonary effort is normal. No respiratory distress. Breath sounds: Normal breath sounds. No stridor. No wheezing, rhonchi or rales. Chest: Chest wall: No tenderness. Abdominal: General: Abdomen is flat. There is no distension. Palpations: Abdomen is soft. There is no mass. Tenderness: There is no abdominal tenderness. There is no right CVA tenderness, left CVA tenderness, guarding or rebound. Hernia: No hernia is present. Musculoskeletal: General: No swelling, tenderness, deformity or signs of injury. Normal range of motion. Cervical back: Normal range of motion and neck supple. No rigidity. Right lower leg: No edema. Left lower leg: No edema. Lymphadenopathy: Cervical: No cervical adenopathy. Skin: General: Skin is warm and dry. Capillary Refill: Capillary refill takes less jamshid (more content not included)... [facility]04-14-2023 History of Present illness Narrative* Mikki Kramer APRN.[facility] - 12/05/2022 9:46 AM EDT This note was created using Enconcertter. Lai Rosario is a 27 year old female. 27 year old female with no PMH presents for illness. Acute onset 2 days ago +cough +nasal congestion +sinus pressure +ear pressure and pain Denies N/V/D Denies fever or chills Denies hemoptysis. 13 weeks OB () Has used cough drops Denies tobacco usage. The history is provided by the patient. No apprenticeship consultant was used. Cough This is a new problem. The current episode started 2 days ago. The problem occurs constantly. The problem has been gradually worsening. The cough is Non- productive. There has been no fever. Associated symptoms include ear congestion, ear pain and sore throat. Pertinent negatives include no chest pain, no chills, no sweats, no weight loss, no headaches, no rhinorrhea, no myalgias, no shortness of breath, no wheezing and no eye redness. She has tried nothing for the symptoms. She is not a smoker.Her past medical history does not include bronchitis, pneumonia, bronchiectasis, COPD, emphysema orasthma. PAST MEDICAL HISTORY Diagnosis Date Childhood asthma Migraine PAST SURGICAL HISTORY Procedure Laterality Date WRIST SURGERY HX Right cyst removed ALLERGIES Patient has no known allergies. MEDICATIONS fluticasone (FLONASE) 50 mcg/actuation nasal spray Use 2 Sprays in each nostril once daily. Rinse mouth after use. amoxicillin (AMOXIL) 875 mg tablet Take 1 tablet by mouth twice daily for 7 days. propranolol (INDERAL) 10 mg tablet Take 10 mg by mouth twice daily. (Patient not taking: Reported on 12/05/2022) rizatriptan (MAXALT) 10 mg tablet 10 MG EVERY 2 HOURS NEEDED FOR MIGRAINE HEADACHE MAY REPEAT DOSE AFTER 2 HOURS UP TO 3 DOSES/DAY (Patient not taking: Reported on 12/05/2022) No family history on file. Social History Tobacco Use Smoking status: Former Smokeless tobacco: Never Review of Systems Constitutional: Positive for fatigue. Negative for chills, fever and weight loss. HENT: Positive for congestion, ear pain and sore throat. Negative for rhinorrhea. Eyes: Negative for pain, discharge, redness and itching. Respiratory: Positive for cough. Negative for shortness of breath and wheezing. Cardiovascular: Negative for chest pain and leg swelling. Gastrointestinal: Negative for abdominal pain, diarrhea, nausea and vomiting. Musculoskeletal: Negative for arthralgias, back pain and myalgias. Skin: Negative for color change, pallor, rash and wound. Allergic/Immunologic: Negative for environmental allergies, food allergies and immunocompromised state. Neurological: Negative for headaches. Hematological: Negative for adenopathy. Does not bruise/bleed easily. Psychiatric/Behavioral: Negative for agitation and behavioral problems. Objective BP 120/68 Pulse 102 Temp 36.7 C (98.1 F) (Tympanic) Resp 18 Wt 60.8 kg (134 lb) LMP 08/29/2022 (Approximate) SpO2 99% Physical Exam Vitals and nursing note reviewed. Constitutional: General: She is not in acute distress. Appearance: Normal appearance. She is normal weight. She is not ill-appearing, toxic-appearing or diaphoretic. HENT: Head: Normocephalic and atraumatic. Right Ear: Ear canal and external ear normal. Left Ear: Ear canal and external ear normal. Ears: Comments: Bilateral TM's erythematous, left greater than right. Nose: Nose normal. No congestion or rhinorrhea. Mouth/Throat: Mouth: Mucous membranes are moist. Pharynx: No oropharyngeal exudate or posterior oropharyngeal erythema. Eyes: General: Right eye: No discharge. Left eye: No discharge. Extraocular Movements: Extraocular movements intact. Conjunctiva/sclera: Conjunctivae normal. Pupils: Pupils are equal, round, and reactive to light. Cardiovascular: Rate and Rhythm: Normal rate and regular rhythm. Pulses: Normal pulses. Heart sounds: Normal heart sounds. No murmur heard. No friction rub. Pulmonary: Effort: Pulmonary effort is normal. No respiratory distress. Breath sounds: Normal breath sounds. No stridor. No wheezing, rhonchi or rales. Chest: Chest wall: No tenderness. Abdominal: General: Abdomen is flat. There is no distension. Palpations: Abdomen is soft. There is no mass. Tenderness: There is no abdominal tenderness. There is no right CVA tenderness, left CVA tenderness, guarding or rebound. Hernia: No hernia is present. Musculoskeletal: General: No swelling, tenderness, deformity or signs of injury. Normal range of motion. Cervical back: Normal range of motion and neck supple. No rigidity. Right lower leg: No edema. Left lower leg: No edema. Lymphadenopathy: Cervical: No cervical adenopathy. Skin: General: Skin is warm and dry. Capillary Refill: Capillary refill takes less than 2 seconds. Coloration: Skin is not jaundiced or pale. Findings: No bruising, erythema, lesion or rash. Neurological: General: No focal deficit present. Mental Status: She is alert and oriented to person, place, and time. Cranial Nerves: No cranial nerve deficit. Sensory: No sensory deficit. Motor: No weakness. Coordination: Coordination normal. Gait: Gait normal. Psychiatric: Mood and Affect: Mood normal. Behavior: Behavior normal. Thought Content: Thought content normal. Judgment: Judgment normal. Assessment and Plan ASSESSMENT/PLAN: 1. Bilateral otitis media, unspecified otitis media type - ICD9: 382.9, ICD10: H66.93 (primary diagnosis) - Will begin treatment with as per antibiotic as written, see orders - The patient should also be given OTC cough and cold meds as needed, warm salt water gargles, throat lozenges and/or OTC throat spray as needed, and nasal saline gtts and suction prn for the first 5-7 days of treatment. - Supportive care with plenty of fluids, rest, and analgesia prn. - Follow up in 3-5 days if symptoms persist or worsen. 2. URI, acute - ICD9: 465.9, ICD10: J06.9 - Discussed viral etiology and rationale for treatment. - Symptomatic treatment with prn analgesia - Supportive care with fluids and rest Mikki Kramer APRN.COMPUTER SECURITY MANAGER [facility] of Present illness Narrative* John Villalobos MD - 10/22/2022 8:50 AM EST Patient presents with: Cough: Cough, nausea, diarrhea and ROQUE x 3 days HPI: Feeling sick for 4 days. 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 Positive symptoms: Cough, Headache, Nausea, Diarrhea, occasional abdominal pain, sometimes dyspnea/fatigue, Nasal Congestion, Rhinorrhea, Negative symptoms: Fever, Vomiting, blood in stool, OTC: none. MEDICATIONS: Current Outpatient Medications Medication Sig propranolol (INDERAL) 10 mg tablet Take 10 mg by mouth twice daily. rizatriptan (MAXALT) 10 mg tablet 10 MG EVERY 2 HOURS NEEDED FOR MIGRAINE HEADACHE MAY REPEAT DOSE AFTER 2 HOURS UP TO 3 DOSES/DAY No current facility-administered medications for this visit. ALLERGIES: ALLERGIES No Known Allergies VITALS: BP 102/64 Pulse 73 Temp 36.7 C (98.1 F) (Tympanic) Resp 18 Wt 64 kg (141 lb) SpO2 99% PHYSICAL EXAM: GEN: mildly ill appearing HEENT: PERRL, EOMI, conjunctiva clear Ears: TMs without erythema, bulge, or effusion Sinuses: non-tender frontal sinus, non-tender maxillary sinuses Throat: moist mucous membranes, no erythema, no exudate Neck: supple, no thyromegaly, no lymphadenopathy HEART: regular rate and rhythm, no murmurs LUNGS: clear to auscultation, no wheezes or crackles, no increased WOB ABD: Soft, non-distended, non-tender, no masses ASSESSMENT/PLAN: 1. Gastroenteritis - ICD9: 558.9, ICD10: K52.9 Hydration with fluids encouraged. Resume normal solid intake as tolerated. Hand hygiene to reduce transmission. Follow up in the ER with signs of dehydration, increasing abdominal pain, high fever, or blood in vomit or stool. Suspect viral gastroenteritis. - 2019 CORONAVIRUS differential includes COVID John Villalobos MD documented [facility] History of Present illness Narrative* John Villalobos MD - 03/22/2022 1:44 PM EDT Patient presents with: Ear Pain: R ear pain, nasal congestion x1 week HPI: Feeling sick for 9 days. Positive symptoms: Stuffy ears (R>L), hearing like she is under water, Nasal Congestion, Cough, AM Sore throat, Rhinorrhea, Post nasal drainage, Negative symptoms: Shortness of breath, Fever, Headache, Vomiting, Diarrhea, otorrhea OTC: bryce Had COVID illness April 2021 and January 2022. PAST MEDICAL HISTORY Diagnosis Date Childhood asthma Migraine MEDICATIONS: Current Outpatient Medications Medication Sig propranolol (INDERAL) 10 mg tablet Take 10 mg by mouth twice daily. rizatriptan (MAXALT) 10 mg tablet 10 MG EVERY 2 HOURS NEEDED FOR MIGRAINE HEADACHE MAY REPEAT DOSE AFTER 2 HOURS UP TO 3 DOSES/DAY etonogestrel (NEXPLANON) subdermal implant 68 mg Etonogestrel (Nexplanon) 68 mg implant Active 1 IMPLANT subdermal ONCE April 08, 2021 8:17am as a single dose albuterol HFA (PROVENTIL HFA, VENTOLIN HFA) 90 mcg/actuation inhaler Inhale 2 Puffs as instructed every 4 hours as needed for wheezing/shortness of breath. No current facility-administered medications for this visit. ALLERGIES: ALLERGIES No Known Allergies VITALS: BP 118/72 Pulse 79 Temp 36 C (96.8 F) Resp 20 Wt 62.2 kg (137 lb 3.2 oz) SpO2 99% PHYSICAL EXAM: GEN: Pleasant, in no acute distress. HEENT: PERRL, EOMI, conjunctiva clear Ears: canals clear. TMs without erythema, bulge, or effusion Sinuses: non-tender frontal sinus, non-tender maxillary sinuses Throat: moist mucous membranes, bifid uvula, no erythema, no exudate Neck: supple, no thyromegaly, no lymphadenopathy HEART: regular rate and rhythm, no murmurs LUNGS: clear to auscultation, no wheezes or crackles, no increased WOB ASSESSMENT/PLAN: 1. URI, acute - ICD9: 465.9, ICD10: J06.9 - Symptomatic treatment with prn antihistamine and decongestant. Low risk for COVID reinfection since she had the illness last month. John Villalobos MD documented in this encounterAs[facility] Hospital Discharge instructions Patient Education 10/19/2021 14:11:38 Self-Care for Headaches Self-Care for Headaches Most headaches aren't serious and can be relieved with self-care. But some headaches may be a sign of another health problem like eye trouble or high blood pressure. To find the best treatment, learnwhat kind of headaches you get. For tension headaches, self-care will usually help. To treat migraines, ask your healthcare provider for advice. It is also possible to get both tension and migraine headaches. Self-care involves relieving the pain and avoiding headache triggers if you can. Ways to reduce pain and tension Try these steps: Apply a cold compress or ice pack to the pain site. Drink fluids. If nausea makes it hard to drink, try sucking on ice. Rest. Protect yourself from bright light and loud noises. Calm your emotions by imagining a peaceful scene. Massage tight neck, shoulder, and head muscles. To relax muscles, soak in a hot bath or use a hot shower. Use medicines Aspirin or other qfls-bih-dpqsviw pain medicines, such as ibuprofen and acetaminophen, can relieve headache. Remember: Never give aspirin to anyone 18 years old or younger because of the risk of developing Dustin syndrome. Use pain medicines only when needed. Certain prescription medicines, if taken too often, can lead to rebound headaches. Check with your healthcare provider or pharmacist about your medicines. Track your headaches Keeping a headache diary can help you and your healthcare provider identify what's causing your headaches: Note when each headache happens. Identify your activities and the foods you've eaten 6 to 8 hours before the headache began. Look for any trends or triggers. Signs of tension headache Any of the following can be signs: Dull pain or feeling of pressure in a tight band around your head Pain in your neck or shoulders Headache without a definite beginning or end Headache after an activity such as driving or working on a computer Signs of migraine Any of the following can be signs: Throbbing pain on one or both sides of your head Nausea or vomiting Extreme sensitivity to light, sound, and smells Bright spots, flashes, or other visual changes Pain or nausea so severe that you can't continue your daily activities Call your healthcare provider If you have any of the following symptoms, contact your healthcare provider: A headache that lingers after a recent injury or bump to the head. A fever with a stiff neck or pain when you bend your head toward your chest. A headache along with slurred speech, changes in your vision, or numbness or weakness in your arms or legs. A headache for longer than 3 days. Frequent headaches, especially in the morning. Headaches with seizures Seek immediate medical attention if you have a headache that you would call the worst headache youhave ever had. [id number] [employer] [place] [address]. All rights reserved. This information is not intended as a substitute for professional medical care. Always follow yourhealthcare professional's instructions. Follow Up Care 10/19/2021 13:54:01 With:EMILIANO GONZALEZ APRN-COMPUTER SECURITY MANAGER Address: [phone] When:2-4 days [facility] 12-25-2021 Hospital Discharge instructions Patient Education 08/17/2021 01:38:37 Vomiting and Diarrhea, Nonspecific (Adult) Nonspecific Vomiting and Diarrhea (Adult) Vomiting and diarrhea can have many causes, including: Helping your body get rid of harmful substances Gastroenteritis caused by viruses, parasites, bacteria, or toxins. Allergy to or side effect of a food or medicine Severe stress or worry (anxiety) Other illnesses It is often hard to pinpoint an exact cause, even with testing. Vomiting and diarrhea often go awaywithin a day or two without problems. If they continue, though, they can lead to too much loss of fluid (dehydration). This can be serious if not treated. Home care Medicines You may use acetaminophen or NSAID medicines like ibuprofen or naproxen to control fever, unless another medicine was prescribed. If you have chronic liver or kidney disease, talk with your healthcare provider before using these medicines. Also talk with your provider if you've had a stomach ulcer or gastrointestinal bleeding. Don't give aspirin to anyone under 18 years of age who is ill with a fever because it may cause severe disease or . Don't use NSAID medicines if you are already taking one for another condition (like arthritis) or are on aspirin (such as for heart disease or after a stroke) Oubx-rir-wywmccp medicines for diarrhea, nausea, and vomiting are generally OK unless you have bleeding, fever, or severe abdominal pain. General care If symptoms are severe, rest at home for the next 24 hours, or until you are feeling better. Washing your hands with soap and water, or using alcohol-based hand head greenskeeper is the best way to stop the spread of infection. Wash your hands after touching anyone who is sick. Wash your hands after using the toilet and before meals. Clean the toilet after each use. Dry your hands with a single use towel. Caffeine, tobacco, and alcohol can make the diarrhea, cramping, and pain worse. Remember, caffeine not only is in coffee, but also is in chocolate, some energy drinks, and teas. Diet Water and clear liquids are important so you don't get dehydrated. Drink a small amount at a time. Don't guzzle down the drinks. That may increase your nausea, make cramping worse, and cause the drinks to come back up. Sports drinks may also help if you are healthy and not too dehydrated. They have too much sugar andnot enough electrolytes and can sometimes make things worse. Also, don't drink beverages that are too acidic, like orange juice and grape juice. If you are very dehydrated, commercially available products called oral rehydration solutions are best. Food Don't force yourself to eat, especially if you have cramps, diarrhea, or vomiting. Eat just a little at a time, and then wait a few minutes before you try to eat more. Don't eat fatty, greasy, spicy, or fried foods. Don't eat dairy products if you have diarrhea. They can make it worse. During the first 24 hours (the first full day), follow the diet below: Beverages: Oral rehydration solutions, sports drinks, soft drinks without caffeine, mineral water, and decaffeinated tea and coffee Soups: Clear broth, consomm , and bouillon Desserts: Plain gelatin, popsicles, and fruit juice bars During the next 24 hours (the second day), you may add the following to the above if you are better. If not, continue what you did the first day: Hot cereal, plain toast, bread, rolls, crackers Plain noodles, rice, mashed potatoes, chicken noodle or rice soup Unsweetened canned fruit (avoid pineapple), bananas Limit fat intake to less than 15 grams per day by avoiding margarine, butter, oils, mayonnaise, sauces, gravies, fried foods, peanut butter, meat, poultry, and fish. Limit fiber. Avoid raw or cooked vegetables, fresh fruits (except bananas) and bran cereals. Limit caffeine and chocolate. No spices or seasonings except salt. During the next 24 hours: Gradually resume a normal diet, as you feel better and your symptoms improve. If at any time your symptoms start getting worse again, go back to clear liquids until you feel better. Food preparation If you have diarrhea, you should not prepare food for others. When preparing foods, wash your handsbefore and after. Wash your hands or use alcohol-based head greenskeeper after using cutting boards, countertops, and knives that have been in contact with raw food. Dry your hands with a single use towel. Keep uncooked meats away from cooked and vmrda-qo-cds foods. Follow-up care Follow up with your healthcare provider, or as advised. Call if you don't get better in the next 2 to 3 days. If a stool (diarrhea) sample was taken, or cultures done, you will be told if they are positive, or if your treatment needs to be changed. You may call as directed for the results. If X-rays were taken, you will be notified of any new findings that may affect your care Call 911 Call 911 if any of these occur: Trouble breathing Chest pain Confusion Severe drowsiness or trouble awakening Fainting or loss of consciousness Rapid heart rate Seizure Stiff neck Severe weakness, dizziness, or lightheadedness When to seek medical advice Call your healthcare provider right away if any of these occur: Bloody or black vomit or stools Severe, steady abdominal pain or any abdominal pain that is getting worse Severe headache or stiff neck An inability to hold down even sips of liquids for more than 12 hours Vomiting that lasts more than 24 hours Diarrhea that lasts more than 24 hours Fever of 100.4 F (38.0 C) or higher, or as directed by your healthcare provider Yellowish color to your skin or the whites of your eyes Signs of dehydration, such as dry mouth, little urine (less than every 6 hours), or very dark urine [id number] [employer]. [address] [place] [address]. All rights reserved. This information is not intended as a substitute for professional medical care. Always follow yourhealthcare professional's instructions. Follow Up Care 08/16/2021 23:33:25 With:EMILIANO GONZALEZ APRN-COMPUTER SECURITY MANAGER Address: [address] [place] [address] [place] [address]- [phone] When:2-4 days [facility] Evaluation + Plan note No data available for this section [facility] Evaluation + Plan note Future Appointments Appointment Date:04/06/2023 11:00:00 AM Scheduled Provider:ASHKAN WALTERS MD Location:[facility] Appointment Type:[facility] OB Routine Follow Up Diagnostic Tests Pending * Rapid Plasma Reagin Test 03/23/23 Future Scheduled Tests Laboratory* Glucose 1 Hour Challenge 03/16/23 * Rapid Plasma Reagin Test 03/16/23 * Complete Blood Count 03/16/23 [facility] Evaluation note* Diagnosis URI, acute- Primary Acute upper respiratory infections of unspecified site [facility] Diagnosis Gastroenteritis- Primary Other and unspecified noninfectious gastroenteritis and colitis documented in this encounter [facility] note* Diagnosis Bilateral otitis media, unspecified otitis media type- Primary URI, acute Acute upper respiratory infections of unspecified site documented in this encounter [facility] note* Diagnosis URI, acute- Primary Acute upper respiratory infections of unspecified site documented in this encounter [facility] note* Diagnosis Rhinosinusitis- Primary Unspecified sinusitis (chronic) documented in this encounter [facility] note* Diagnosis Strep pharyngitis- Primary Streptococcal sore throat Sore throat Acute pharyngitis documented in this encounter [facility] note* Diagnosis Sore throat- Primary Acute pharyngitis Bacterial sinusitis Unspecified sinusitis (chronic) Fever, unspecified fever cause [facility] No data available for this section [facility] Progress note No data available for this section [facility] Health Concerns Infection Onset Date Last Indicated Resolved Time COVID-19 Rule-Out 10/22/2022 10/22/2022 Infection Onset Date Last Indicated Resolved Time COVID-19 Rule-Out 12/05/2022 12/05/2022 Infection Onset Date Last Indicated Resolved Time Influenza 10/31/2023 10/31/2023 Summary Purpose Family History No Family History Records Found Advance Directives No Advanced Directives Records FoundNo Advanced Directives Records Found Additional Source Comments Source Comments (unrecognize d section and content) In the event this informatio n is protected by the Federal Confidentiality of Alcohol and Drug Abuse Patient Records regulations: The Federal rules restrict any use of the information to criminally investigate or prosecute any alcohol or drug abuse patient.[facility] the event this information is protected by the Federal Confidentiality of Alcohol and Drug Abuse Patient Records regulations: The Federal rules restrict any use of the information to criminally investigate or prosecute any alcohol or drug abuse patient.[facility] the event this information is protected by the Federal Confidentiality of Alcohol and Drug Abuse Patient Records regulations: The Federal rules restrict any use of the information to criminally investigate or prosecute any alcohol or drug abuse patient.[facility] the event this information is protected by the Federal Confidentiality of Alcohol and Drug Abuse Patient Records regulations: The Federal rules restrict any use of the information to criminally investigate or prosecute any alcohol or drug abuse patient.[facility] the event this information is protected by the Federal Confidentiality of Alcohol and Drug Abuse Patient Records regulations: The Federal rules restrict any use of the information to criminally investigate or prosecute any alcohol or drug abuse patient.[facility] Center[facility] the event this information is protected by the Federal Confidentiality of Alcohol and Drug Abuse Patient Records regulations: The Federal rules restrict any use of the information to criminally investigate or prosecute any alcohol or drug abuse patient.[facility] Center[facility] the event this information is protected by the Federal Confidentiality of Alcohol and Drug Abuse Patient Records regulations: The Federal rules restrict any use of the information to criminally investigate or prosecute any alcohol or drug abuse patient.[facility] Center[facility] the event this information is protected by the Federal Confidentiality of Alcohol and Drug Abuse Patient Records regulations: The Federal rules restrict any use of the information to criminally investigate or prosecute any alcohol or drug abuse patient.[facility] Reason for Visit (unrecogniz ed section and content) Reason Comments Cough Cough, nausea, diarr hea and ROQUE x 3 days Reason Comments Cough Pt reported 13 week gestation, c/o chest congestion x1 day. Reason Comments Nasal Congestion Sinus pressure, coug h, ROQUE x3 days Reason Comments Head Congestion Sinus congestion, ST x1 week, ROQUE x2 days Reason Comments Sore Throat ROQUE x 2 days Reason Comments Nasal Congestion drainage, cough, hea dache, sore throat and fever x 2 days Reason Comments Results Care Teams (unrecognized sec tion and content) Mimeographer Relationship Specialty Start Date End Date Krystle Manriquez CNP [address] [place] [phone] PCP - General Family Medicine 05/23/21 Mimeographer Relationship Specialty Start Date End Date Krystle Manriquez CNP [address] [place] [phone] PCP - General Family Medicine 05/23/21 Mimeographer Relationship Specialty Start Date End Date Krystle Manriquez CNP [address] [place] [place] [phone] PCP - General Family Medicine 05/23/21 Mimeographer Relationship Specialty Start Date End Date Krystle Manriquez CNP [address] [place] [place] [phone] PCP - General Family Medicine 05/23/21 Mimeographer Relationship Specialty Start Date End Date Krystle Manriquez CNP [address] [place] [place] [phone] PCP - General Family Medicine 05/23/21 Mimeographer Relationship Specialty Start Date End Date Krystle Manriquez CNP [address] [place] [place] [phone] PCP - General Family Medicine 05/23/21 Mimeographer Relationship Specialty Start Date End Date Krystle Manriquez CNP [address] [place] [place] [phone] PCP - General Family Medicine 05/23/21 INFORMATION SOURCE (unrecogn ized section and content) DATE CREATED AUTHOR AUTHOR'S YAMILE ATION 11/01/2023 [facility] FOR RECORDS PERTAINING TO PATIENTS WHO ARE OR HAVE BEEN ENROLLED IN A CHEMICAL DEPENDENCY/SUBSTANCEABUSE PROGRAM, SOME INFORMATION MAY BE OMITTED. This clinical summary was aggregated from multiple sources. Caution should be exercised in using it in the provision of clinical care. This summary normalizes information from multiple sources, and as a consequence, information in this document may materially change the coding, format and clinical context of patient data. In addition, data may be omitted in some cases. CLINICAL DECISIONS SHOULD BE BASED ON THE PRIMARY CLINICAL RECORDS. [facility]. provides no warranty or guarantee of the accuracy or completeness of information in this document.
[2023-11-01 19:39] VITALS: BP 127/83; PULSE 89; RESP 14; O2SAT 98
[2023-11-01 19:44] LABS: D-Dimer Quantitative (DVT/PE) 1.21 FEU/ug/m (0.27-0.49)
--- NOTE | 2023-11-01 19:47 | CT_ITS ---
STUDY: CTA CHEST REASON FOR EXAM: Female, 28 years old. pulmonary embolism high d dimer TECHNIQUE: The examination was performed with the intravenous administration of 100 cc of IV Isovue 300 contrast material. Post-processing of the angiographic images was performed, with axial imaging and 3D reconstruction. MIPS images were obtained. Individualized dose optimization techniques were used for this CT. COMPARISON: 01.12.23 FINDINGS: Normal enhancement of the main pulmonary artery and right and left pulmonary arteries. Normal enhancement of the bilateral peripheral pulmonary arteries. There is no demonstrated pulmonary embolism. Normal thoracic aorta and visualized great vessels. There is no demonstrated aortic dissection. Normal heart and pericardium with no evidence for calcifications of the coronary arteries. Normal mediastinum. Normal hilar regions. Normal visualized trachea and bronchi. The lungs are well expanded. Normal pulmonary parenchyma. Normal pleura. Normal chest wall structures. Normal osseous structures. Normal visualized upper abdomen. CT/CTA Chest W/WO Contrast IMPRESSION: (NOT LISTED IN ORDER OF SIGNIFICANCE) No demonstrated pulmonary embolism or arterial dissection. Electronically Signed: Gerardo Hannah MD at 20:57 EDT ,
[2023-11-01] MEDS: Ketorolac 30 MG/ML Syringe IV (20:56)
[2023-11-01 21:13] VITALS: BP 127/83; PULSE 89; RESP 14; TEMP 36.9; O2SAT 98
[2023-11-01 21:24] VITALS: BP 115/87; PULSE 83; RESP 22; TEMP 37.4; O2SAT 97
== END 2023-11-01 21:25 | disposition home or self-care (01) ==
PROVIDERS: Emergency Provider Emergency Medicine; Visit Provider Emergency Medicine
DX: J10.1 Influenza due to other identified influenza virus with other respiratory manifestations (principal); R07.9 Chest pain, unspecified; Z87.891 Personal history of nicotine dependence; J45.909 Unspecified asthma, uncomplicated; E78.00 Pure hypercholesterolemia, unspecified
CPT/HCPCS: 71275; 85379; 96374; 99283; Q9967; A4216

== ENCOUNTER → 2024-01-06 | Outpatient (CLI) | payer MEDICAID, SELFPAY ==
--- NOTE | 2024-01-06 14:47 | NEURO ---
NCS and/or EMG Patient Report Ordering Doctor: Cortez Rajput DATE OF SERVICE: 01/06/24 Maryuri presents with complaints of pain, numbness and tingling in the right hand. Electrodiagnostic findings: Right median motor nerve demonstrates normal distal latency, amplitude and conduction velocity. Right ulnar motor nerve demonstrates normal distal latency, amplitude and conduction velocity across the elbow. Normal median and ulnar F?wave. Sensory responses are within normal limits. Needle EMG testing was performed in the right upper limb. All muscles tested, including the cervical paraspinals, showed no evidence of denervation with normal motor unit action potentials. Electrodiagnostic impression: This is a normal electrodiagnostic study of the right upper limb. There is no electrodiagnostic evidence for peripheral neuropathy, including carpal tunnel or cubital tunnel syndrome. There is no electrodiagnostic evidence for cervical radiculopathy Multi Select Codes Neurology Neurology Interp Codes: 23687-91 Musc test done w/n test comp (interp) and 69052-06 Nrv cndj test 7-8 studies (interp)
== END | disposition home or self-care (01) ==
LOC: PSN 13:34
PROVIDERS: Referring Provider Orthopaedic Surgery Sports Medicine; Visit Provider Orthopaedic Surgery Sports Medicine
DX: G56.01 Carpal tunnel syndrome, right upper limb (principal)
CPT/HCPCS: 95886; 95910

== ENCOUNTER 2024-06-15 21:17 | Emergency (ER) | payer MEDICAID, SELFPAY ==
[2024-06-15 21:17] VITALS: BP 123/89; PULSE 90; RESP 16; TEMP 35.8; O2SAT 99; BMI 23.3
--- NOTE | 2024-06-15 21:25 | EX.ED.VIS.HA ---
HPI History of Present Illness Chief Complaint: Headache Informant: patient Onset/Context/Timing Onset: Today Context: Sudden Timing: Continuous Quality -Headache: Positive for Similar Prior Headaches and Sharp Location: Occiput Worsened by: Movement, bright lights Relieved by: Nothing Associated Symptoms/Injury Associated Symptoms: Positive for Nausea, Vomiting and Photophobia; Negative for Fever, Sore Throat, Sinus Pressure, Numbness, Tingling, Preceding Aura, Visual Changes, Blurred Vision or Visual Loss Injury - ROQUE: Negative for Direct Trauma or Fall Narrative Narrative: Patient presents with a headache that began today approximately 5 hours prior to arrival. Patient states it began rather suddenly. Patient states it feels similar to prior migraine headaches. Patient states it is mainly over the occipital area. Patient describes it as sharp. Patient states it is worse with movement and with bright lights. Patient admits to some nausea and vomiting. Patient denies any fevers or chills. Patient denies any visual changes or scotoma. Patient denies any trauma or injury. Patient states she took her Maxalt with no improvement. PFSH PFS Medical History Right carpal tunnel syndrome De Quervain's tenosynovitis, right Acid reflux Migraine Benign paroxysmal positional vertigo Frequent headaches High cholesterol Asthma Home Medications ?Medication ?Instructions ?Recorded ?Last Taken ?Type norgestimate 0.25 mg-ethinyl 1 tab PO DAILY 11/01/23 Unknown History estradiol 35 mcg tablet (Sprintec (28)) ondansetron HCl 4 mg tablet 4 mg PO TID PRN nausea and 03/31/24 Unknown Rx vomiting #90 tabs propranolol 20 mg tablet 20 mg PO QAM #30 tabs 03/31/24 Unknown Rx rizatriptan 10 mg tablet (Maxalt) 10 mg .Route .COMPLEX #9 tabs 03/31/24 Unknown Rx Allergy/AdvReac Type Severity Reaction Status Date / Time No Known Allergies Allergy Verified 06/15/24 21:17 Family History Mother Anxiety Depression Father Drug abuse Surgical History no surgical history no surgical history Social History Smoking Status: Former smoker how long ago did patient quit smokin alcohol intake: never substance use type: does not use what type of physical activity do you participate in: walking and running frequency: 5-6 times per week gwen/moravian: None seatbelt use: always ROS ROS ED Constitutional Constitutional ED: Denies chills or fever(s) Eyes Eyes: Denies blurry vision or change in vision ENT ENT ED: Denies rhinorrhea or sore throat Cardiovascular Cardiovascular: Denies chest pain or palpitations Respiratory/Chest Respiratory/Chest: Denies cough or dyspnea Gastrointestinal Gastrointestinal: Reports nausea and vomiting Genitourinary Genitourinary ED: Denies dysuria or hematuria Musculoskeletal Musculoskeletal: Denies back pain or neck pain Integumentary Denies abscess or rash Neurologic Neurologic: Reports headache(s); Denies weakness Allergic/Immunologic Allergic/Immunologic ED: Denies mouth swelling or urticaria EXAM Physical Exam Const Vital Signs: 06/15/24 21:17 Temperature 96.5 F L Temperature Source Temporal Pulse Rate 90 Respiratory Rate 16 Blood Pressure 123/89 H Blood Pressure Mean 100 Pulse Ox 99 Oxygen Delivery Method Room Air Positive well nourished and well developed General Appearance ED: well developed and NAD HEENT Reports normocephalic HEENT Narrative: There is mild tenderness over the occipital scalp. There is no bony crepitance or step-off. atraumatic and tenderness; Negative for temporal artery tenderness Neck supple, no meningeal signs and no JVD Neck Narrative: There is mild tenderness over the left cervical paraspinal muscles. There is full range of motion. Resp normal respiratory effort and clear to auscultation bilaterally Cardio regular rate and regular rhythm GI non-tender and non-distended Palpation: soft Neuro oriented x3, CN's II-XII intact bilaterally and no sensory deficits noted [place] Coma Scale: document GCS findings Spontaneous Obeys Commands Oriented 15 Sensorium / Orientation: awake and alert Speech: speech normal Motor Exam: strength 5/5 throughout Psych mental status grossly normal MDM MDM MDM Narrative Medical decision making narrative: Patient was given IV fluids, Reglan, Benadryl, and Toradol. Treatment and Re-Evaluation Narrative: Patient was feeling better on reevaluation. Patient was instructed to rest in a dark quiet room. Patient was instructed to follow-up with her primary care physician in 5 to 7 days. Patient understood and was agreeable with the plan. All questions were answered. Discharge Plan Triage Chief Complaint: Headache ED Provider: Jas Arias Dx/Rx/DC Orders Clinical Impression: Migraine headache without aura, Elevated blood pressure reading Instructions: ED, Migraine (Classical) Prescriptions: No Action propranolol 20 mg tablet 20 mg PO QAM Qty: 30 6RF rizatriptan [Maxalt] 10 mg tablet 10 mg .ROUTE .COMPLEX Qty: 9 7RF Rx Instructions: 1 tablet PO every 2 hours as needed for headache up to 3 tablets/day ondansetron HCl 4 mg tablet 4 mg PO TID PRN (Reason: nausea and vomiting) Qty: 90 5RF norgestimate-ethinyl estradiol [Sprintec (28)] 0.25-35 mg-mcg tablet 1 tab PO DAILY Primary Care Provider: Care Physician,No Primary Referrals: Ana Cintron MD [Med Staff - Animal Killer] - 5-7 Days Care Physician,No Primary [Primary Care Provider] - Print Language: Portuguese Disposition Disposition: Home, Self Care
[2024-06-15] MEDS: Metoclopramide 10 MG/2 ML Vial IV (21:32)
[2024-06-15] MEDS: 0.9% Normal Saline (1000mL) 1,000 ML 999 ML IV (21:32)
[2024-06-15] MEDS: Ketorolac 30 MG/ML Syringe IV (21:32)
[2024-06-15] MEDS: DiphenhydrAMINE 50 MG/ML Syringe 25 MG IV (21:33)
--- OUTSIDE RECORDS SUMMARY | 2024-06-15 22:05 | XMS RPT_ITS | CCD ---
Author Organization [facility] Care Team Providers Care Telephone Coin Box Collector Name Role Phone LISA CISNEROS, EMILIANO Primary Care Physician Krystle Peng CNP Primary Care Provider Krystle Peng CNP Primary Care Provider Krystle Peng CNP Primary Care Provider ASHKAN WALTERS MD Admitting Unavailable LISA CISNEROS EMILIANO Primary Care ASHKAN Mazariegos MD Attending Unavailable ASHKAN WALTERS MD Attending Unavailable LISA CISNEROS [facility] Primary Care Christy CISNEROS [facility] Primary Care ASHKAN Mazariegos MD Attending Unavailable LISA CISNEROS, [facility] Primary Care ASHKAN Mazariegos MD Consulting Unavailable ASHKAN WALTERS MD Attending Unavailable ASHKAN WALTERS MD Attending Unavailable LISA CISNEROS, [facility] Primary [facility] ASHKAN Mazariegos MD Consulting Unavailable KRYSTLE PENG Primary Care Unavailable KRYSTLE PENG Primary Care Unavailable KRYSTLE PENG Primary Care Unavailable KRYSTLE PENG Primary Care Unavailable KRYSTLE PENG Primary Care Unavailable KRYSTLE PENG Primary Care Unavailable MITRA KRYSTLE Primary Care Unavailable KRYSTLE PENG Primary Care Unavailable Medications Current Medications Medication Drug Class(es) Dates Sig (Normalized) Sig (Original) acetaminophen 325 mg / HYDROcodone bitartrate 5 mg oral tablet (1 source) Opioid Agonist Start: 10-19-2021 End: 10-21-2021 take 1 tablet by mouth every six hours as needed for pain Naoma 325- 5 mg oral tablet Dose = [...] days. 20 capsule 0 10/05/2023 10/15/2023 Active Start: 12-05-2022 End: 12-12-2022 take 1 tablet by mouth twice daily amoxicillin (AMOXIL) 875 mg tablet Take 1 tablet by mouth twice daily for 7 days. 14 tablet 0 12/05/2022 12/12/2022 Active Comment on above: Take 1 tablet by yoon twice daily for 7 days. Take 1 capsule by mo [facility] two times a day for 10 days. amoxicillin 875 mg / clavulanate 125 mg oral tablet (2 sources) Penicillin-class Antibacterial Start: 10-31-19 End: 11-05-19 take 1 tablet by mouth twice daily amoxicillin-clavulana te potassium (AUGMENTIN) 875-125 mg per tablet Indications: Bacterial sinusitis Take 1 tablet by mouth two times a day for 5 days. 10 tablet 0 10/31/2023 11/05/2023 Active Comment on above: Take 1 tablet by yoon two times a day for 5 days. doxycycline hyclate 100 mg oral tablet (1 source) Tetracycline-class Drug Start: 07-23-20 End: 07-30-20 take 1 tablet by mouth twice daily doxycycline (VIBRA-TABS) 100 mg tablet Take 1 tablet by mouth two times a day for 7 days. 14 tablet 0 07/23/2023 07/30/2023 Active Comment on above: Take 1 tablet by yoon two times a day for 7 days. ferrous sulfate 325 mg oral tablet (1 source) Start: 05-18-20 ferrous sulfate 325 mg (65 mg elemental iron) oral tablet Dose : 325 mg = 1 tab(s), Oral, BIDM, Take with food., # 60 tab(s), 1 Refill(s), Pharmacy: [id number], 36 weeks gestation of Anemia during , 157.5, cm, 05/18/23 10:55:00 EDT, Height, kg, 08/16/21 23:39:00 EST, Dosing Weight Start Date: 05/18/23 Status: Ordered ibuprofen 600 mg oral tablet (1 source) Nonsteroidal Anti-inflammatory Drug Start: 06-04-20 End: 06-24-20 ibuprofen 600 mg oral tablet Dose : 600 mg = 1 tab(s), Oral, q6h, PRN as needed for pain, Take with food or milk., X 10 day(s), # 30 tab(s), 1 Refill(s), 06/24/23 3:10:00 PM EDT, Pharmacy: [id number], 155, cm, 06/04/23 6:04:00 EDT, Height, kg, 06/04/23 6:04:00 EDT, Dosing Weight Start Date: 06/04/23 Stop Date: 06/24/23 Status: Ordered ondansetron 4 mg disintegrating oral tablet (3 sources) Serotonin-3 Receptor Antagonist Start: 02-17-20 take 1 tablet by mouth every six hours as needed for nausea ondansetron 4 mg oral tablet, disintegrating TAKE 1 TABLET BY MOUTH EVERY 6 HOURS NEEDED FOR NAUSEA Start Date: 02/16/23 Status: Ordered Multivitamins (2 sources) Start: 02-17-20 take 1 tablet by mouth once daily Multivitamins Dose = 1 tab(s), Oral, qDay, 0 Refill(s) Start Date: 02/16/23 Status: Ordered Completed/Discontinued Medications Medication Drug Class(es) Dates Sig (Normalized) Sig (Original) [id number] 200 actuat albuterol 0.09 mg/actuat metered dose inhaler (2 sources) beta2-Adrenergic Agonist Start: 10-21-2021 End: 10-22-2022 take 2 puff(s) by inhalation every four hours as needed for wheezing albuterol HFA (PROVENTIL HFA, VENTOLIN HFA) 90 mcg/actuation inhaler Indications: Wheezing Inhale 2 Puffs as instructed every 4 hours as needed for wheezing/shortness of breath. 1 Inhaler 0 10/21/2021 10/22/2022 Discontinued Comment on above: Inhale 2 Puffs as in structed every 4 hours as needed for wheezing/shortness of breath. Ethinyl Estradiol / norgestimate (3 sources) Progestin, Estrogen Start: 09-10-2023 SPRINTEC 0.25-35 mg-mcg per tablet etonogestrel 68 mg drug implant (2 sources) Progestin Start: 04-08-2021 End: 10-22-2022 etonogestrel (NEXPLANON) subdermal implant 68 mg Etonogestrel (Nexplanon) 68 mg implant Active 1 IMPLANT subdermal ONCE April 08, 2021 8:17am as a single dose 0 04/08/2021 10/22/2022 Discontinued Comment on above: Etonogestrel (Nexpla non) 68 mg implant Active 1 IMPLANT subdermal ONCE April 08, 2021 8:17am as a single dose famotidine 20 mg oral tablet (6 sources) Histamine-2 Receptor Antagonist Start: 04-21-2023 famotidine (PEPCID) 20 mg tablet ferrous gluconate 324 mg oral tablet (8 sources) Start: 04-06-2023 take 1 tablet by mouth twice daily Ferrous Gluconate (FERGON) 324 mg (38 mg iron) tablet TAKE 1 TABLET BY MOUTH TWICE A DAY X1 MONTH 0 04/06/2023 Active Start: 02-16-2023 End: 04-17-2023 ferrous gluconate 324 mg (38 mg elemental iron) oral tablet Dose : 324 mg = 1 tab(s), Oral, BID, X 1 month(s), # 60 tab(s), 1 Refill(s), 04/17/23 11:14:00 AM EDT, Pharmacy: [facility]/pharmacy #[id number], 157.5, cm, 02/16/23 10:33:00 EDT, Height Start Date: 02/16/23 Stop Date: 04/17/23 Status: Ordered Comment on above: TAKE 1 TABLET BY YOON TWICE A DAY X1 MONTH fluticasone propionate 0.05 mg/actuat metered dose nasal spray (7 sources) Corticosteroid Start: 12-06-19 take 2 spray(s) by mouth once daily fluticasone (FLONASE) 50 mcg/actuation nasal spray Use 2 Sprays in each nostril once daily. Rinse mouth after use. 11.1 mL 0 12/05/2022 Active Comment on above: Use 2 Sprays in each nostril once daily. Rinse mouth after use. MiscMED Miscellaneous Medication (2 sources) Start: 01-26-20 MiscMED Miscellaneous Medication See Instructions, takes 1 tablet of zay control, 0 Refill(s), 52.3 Start Date: 01/25/21 Status: Ordered pantoprazole 40 mg delayed release oral tablet (9 sources) Proton Pump Inhibitor Start: 02-17-20 take 1 tablet by mouth once pantoprazole DR (PROTONIX) 40 mg tablet Take 1 tablet by mouth every afternoon. 0 02/16/2023 Active Start: 02-16-2023 End: 08-15-2023 Protonix 40 mg oral enteric coated tablet Dose : 40 mg = 1 tab(s), Oral, qDay, # 90 tab(s), 1 Refill(s), Pharmacy: [facility]/pharmacy #[id number], 157.5, cm, 02/16/23 10:33:00 EDT, Height Start Date: 02/16/23 Stop Date: 08/15/23 Status: Ordered Comment on above: Take 1 tablet by yoon th every afternoon. 28 mg iron- 800 mcg tab (6 sources) Start: take 1 tablet by mouth once 28 mg iron- 800 mcg tab Take 1 tablet by mouth every afternoon. 0 04/06/2023 Active Comment on above: Take 1 tablet by yoon th every afternoon. Multivitamins with FA 0.8 mg oral tablet (1 source) Start: End: take 1 tablet by mouth once daily Multivitamins with FA 0.8 mg oral tablet Dose = 1 tab(s), Oral, qDay, # 90 tab(s), 2 Refill(s), Pharmacy: [facility]/pharmacy #[id number], 157.5, cm, 04/06/23 11:05:00 EDT, Height, kg, 08/16/21 23:39:00 EST, Dosing Weight Start Date: 04/06/23 Stop Date: 01/01/24 Status: Ordered propranolol hydrochloride 10 mg oral tablet (10 sources) beta-Adrenergic Ute Start: take 1 tablet by mouth twice daily propranolol (INDERAL) 10 mg tablet Take 10 mg by mouth twice daily. 0 10/05/2021 Active Comment on above: Take 10 mg by mouth twice daily. pseudoephedrine hydrochloride 60 mg oral tablet (1 source) alpha-Adrenergic Agonist Start: 024 take 1 tablet by mouth every six hours as needed for congestion pseudoephedrine (SUDAFED) 60 mg tablet Indications: Eustachian tube dysfunction, bilateral Take 1 tablet by mouth every 6 hours as needed (head congestion). 30 tablet 0 12/02/2023 Active Comment on above: Take 1 tablet by yoon th every 6 hours as needed (head congestion). rizatriptan 10 mg oral tablet (10 sources) Serotonin-1b and Serotonin-1d Receptor Agonist Start: rizatriptan (MAXALT) 10 mg tablet 10 MG EVERY 2 HOURS NEEDED FOR MIGRAINE HEADACHE MAY REPEAT DOSE AFTER 2 HOURS UP TO 3 DOSES/DAY 0 10/05/2021 Active Comment on above: 10 MG EVERY 2 HOURS NEEDED FOR MIGRAINE HEADACHE MAY REPEAT DOSE AFTER 2 HOURS UP TO 3 DOSES/DAY Problems Active Problems Problem Classification Problem Date [...] unspecified] Episodic Otitis media and related conditions (2 sources) Otitis media of bilateral ears; Translations: [Otitis media, unspecified, bilateral] Episodic Past or Other Problems Problem Classification Problem Date Documented Da te Episodic/Chronic NEGATED: Highlighted row has been ruled out!Unclassified (2 sources) No known active problems 05-23-2021 Results Test Name Value Interpretation Reference Range Facility [facility] 12-02-2023 CNOV Office Visit (UCTR) ---- MARLENEMARYURI DIEGO ([id number]) 1995 F Date Time Provider Department 12/02/23 9:30 AM JOHN VILLALOBOS [facility] During your visit today, we recorded the following information about you: Temperature Pulse Respiration Blood pressure 97.9 degrees 84/minute 16/minute 112/66 Weight 62 kg John Villalobos MD 12/02/2023 9:40 AM Signed Patient presents with: Head Congestion: bilateral ear pressure x 1 week HPI: Feeling congested for over 1 week. Positive symptoms: bilateral ears plugged and decreased hearing, Nasal Congestion, Rhinorrhea, Post nasal drainage, Negative symptoms: Cough, Sore throat, Earache, Fever, OTC: none. Prescribed augmentin 10/31/23 (stopped when influenza B positive). Had gastroenteritis 10/27/23. MEDICATIONS: Current Outpatient Medications Medication Sig SPRINTEC 0.25-35 mg-mcg per tablet pantoprazole DR [...] (Patient not taking: Reported on 12/05/2022) No current facility-administer ed medications for this visit. ALLERGIES: ALLERGIES No Known Allergies VITALS: BP 112/66 Pulse 84 Temp 36.6 ?C (97.9 ?F) Resp 16 Wt 62 kg (136 lb 11 oz) LMP 08/29/2022 (Approximate) SpO2 99% PHYSICAL EXAM: GEN: mildly ill appearing HEENT: PERRL, EOMI, conjunctiva clear Ears: canals clear. TMs without erythema, bulge, or effusion Sinuses: non-tender frontal sinus, non-tender maxillary sinuses Throat: moist mucous membranes, no erythema, no exudate Neck: supple, no thyromegaly, no lymphadenopathy HEART: regular rate and rhythm, no murmurs LUNGS: clear to auscultation, no wheezes or crackles, no increased WOB ASSESSMENT/PLAN: 1. Eustachian tube dysfunction, bilateral - ICD9: 381.81, ICD10: H69.93 Reassured of normal ear exam. As needed decongestant for symptoms - PSEUDOEPHEDRINE 60 MG TABLET, denies side effects with decongestant use. John Villalobos MD Allergies As of Date: 12/02/2023 (No Known Allergies) Date Reviewed: 12/02/2023 Reviewed by: Naty Arzola MA - Fully Assessed Reason for Visit: Head Congestion [234] Cmt: bilateral ear pressure x 1 week Primary Visit Diagnosis:Eustachia n tube dysfunction, bilateral [H69.93] Order(s):pseudoephe drine (SUDAFED) 60 mg tabletTake 1 tablet by mouth every 6 hours as needed (head congestion).Disp: 30 tabletRfl: 0 Prescriptions as of 12/02/2023 - pseudoephedrine (SUDAFED) 60 mg tablet Take 1 tablet by mouth every 6 hours as needed (head congestion). - SPRINTEC 0.25-35 mg-mcg per tablet - 28 mg iron- 800 mcg tab Take 1 tablet by mouth every afternoon. - pantoprazole DR (PROTONIX) 40 mg tablet Take 1 tablet by mouth every afternoon. - Ferrous Gluconate (FERGON) 324 mg (38 mg iron) tablet TAKE 1 TABLET BY MOUTH TWICE A DAY X1 MONTH - famotidine (PEPCID) 20 mg tablet - fluticasone (FLONASE) 50 mcg/actuation nasal spray Use 2 Sprays in each nostril once daily. Rinse mouth after use. - propranolol (INDERAL) 10 mg tablet Take 10 mg by mouth twice daily. - rizatriptan (MAXALT) 10 mg tablet 10 MG EVERY 2 HOURS NEEDED FOR MIGRAINE HEADACHE MAY REPEAT DOSE AFTER 2 HOURS UP TO 3 DOSES/DAY Problem List As Of Date: 12/02/2023 (None) Prescriptions ordered this encounter Disp Refills Start End PSEUDOEPHEDRINE 60 MG TABLET 30 t* 0 12/02/2023 Route: ORAL Sig: Take 1 tablet by mouth every 6 hours as needed (head congestion). Encounter Status:Closed by JOHN VILLALOBOS on 12/02/23 [facility] 11-01-2023 [facility] Telephone ([facility]) ---- MARYURI ROSARIO ([id number]) 1995 F Date Time Provider Department 11/01/23 NOE PATEL [facility] During your visit today, we recorded the following information about you: Noe Patel PA 11/01/2023 8:10 AM Signed Please call patient and let her know that she tested positive for influenza B. She is out of the window for treatment with Tamiflu. Naty Arzola MA 11/01/2023 8:33 AM Signed Left message for patient to return call. CHRIS Mckinney Melissa MA 11/01/2023 10:27 AM Signed Patient given results and verbalized understanding of instructions given. Naty Arzola MA Allergies As of Date: 11/01/2023 (No Known Allergies) Date Reviewed: 10/27/2023 Reviewed by: Kerrie Tate APRN.BATTERY PLATE ASSEMBLER - Fully Assessed Reason for Visit: Results [95] Prescriptions as of 11/01/2023 - amoxicillin-clavula keke potassium (AUGMENTIN) 875-125 mg per tablet Take 1 tablet by mouth two times a day for 5 days. - SPRINTEC 0.25-35 mg-mcg per tablet - 28 mg iron- 800 mcg tab Take 1 tablet by mouth every afternoon. - pantoprazole DR (PROTONIX) 40 mg tablet Take 1 tablet by mouth every afternoon. - Ferrous Gluconate (FERGON) 324 mg (38 mg iron) tablet TAKE 1 TABLET BY MOUTH TWICE A DAY X1 MONTH - famotidine (PEPCID) 20 mg tablet - fluticasone (FLONASE) 50 mcg/actuation nasal spray Use 2 Sprays in each nostril once daily. Rinse mouth after use. - propranolol (INDERAL) 10 mg tablet Take 10 mg by mouth twice daily. - rizatriptan (MAXALT) 10 mg tablet 10 MG EVERY 2 HOURS NEEDED FOR MIGRAINE HEADACHE MAY REPEAT DOSE AFTER 2 HOURS UP TO 3 DOSES/DAY Problem List As Of Date: 11/01/2023 (None) Encounter Status:Closed by NATY ARZOLA on 11/01/23 [facility] CNOVon 10-31-2023 CNOV Office Visit (UCWSTR) ---- MARYURI ROSARIO ([id number]) 1995 F Date Time Provider Department 10/31/23 8:45 AM LU[facility] HOWARD [facility] During your visit today, we recorded the following information about you: Temperature Pulse Respiration Blood pressure 98.4 degrees 102/minute 18/minute 108/64 Weight 62.8 kg Luna Howard APRN.BATTERY PLATE ASSEMBLER 10/31/2023 9:17 AM Signed Subjective Nasal Congestion Associated symptoms include chills, [...] analgesia. - Discussed expected course of illness RAJ Faria Kathy, APRN.CNP 10/31/2023 9:16 AM Addendum ASSESSMENT/PLAN: 1. Sore throat - ICD9: 462, ICD10: J02.9 (primary diagnosis) - suspect viral - Group A strep m (more content not included)... Normal [facility] COVID AND INFLUENZA A/B AND RSV NAAT, ROUTINEon 10-31-2023 SARS-CoV-2 (COVID-19) RNA DILCIA+probe Ql (Unsp spec) COVID 19 RESULT: Not detected The method used is RT-PCR or an equivalent NAAT method. Reference Range (the expected result in uninfected individuals): Not detected INFLUENZA A PCR: Not detected INFLUENZA B PCR: Detected RSV PCR: Not detected Abnormal [facility] Comment on above: Performed By: #### C VFLRS ####[facility] LABCLIA [id number] [address] STATES OF ABDIAS STREP A MOLECULAR (POC)on Procedural Control Valid [facility] Strep A (POCT) Negative Negative [facility] CNOVon 10-27-2023 [facility] ---- MARYURI ROSARIO ([id number]) 1995 F Date Time Provider Department 10/27/23 1:30 PM KERRIE TATE [facility] During your visit today, we recorded the following information about you: Temperature Pulse Respiration Blood pressure 98.6 degrees 90/minute 16/minute 128/72 Weight 61.7 kg Kerrie Tate APRN.CNP 10/27/2023 1:55 PM Signed Subjective HPI HPI Maryuri Rosario is a [...] discussed F/u for continued/worsening s/s. Kerrie Tate APRN.BATTERY PLATE ASSEMBLER Allergies As of Date: 10/27/2023 (No Known Allergies) Date Reviewed: 10/27/2023 Reviewed by: Kerrie Tate APRN.BATTERY PLATE ASSEMBLER - Fully Assessed Reason for Visit: Nausea [70] Cmt: x 3 days Primary Visit Diagnosis:Nausea [R11.0] Prescriptions as of 10/27/2023 - SPRINTEC 0.25-35 mg-mcg per tablet - 28 mg iron- 800 mcg tab Take 1 tablet by mouth every afternoon. - pantoprazole DR (PROTONIX) 40 mg tablet Take 1 tablet by mouth every afternoon. - Ferrous Gluconate (FERGON) 324 mg (38 mg iron) tablet TAKE 1 TABLET BY MOUTH TWICE A DAY X1 MONTH - famotidine (PEPCID) 20 mg tablet - fluticasone (FLONASE) 50 mcg/actuation nasal spray Use 2 Sprays in each nostril once daily. Rinse mouth after use. - propranolol (INDERAL) 10 mg tablet Take 10 mg by mouth twice daily. - rizatriptan (MAXALT) 10 mg tablet 10 MG EVERY 2 HOURS NEEDED FOR MIGRAINE HEADACHE MAY REPEAT DOSE AFTER 2 HOURS UP TO 3 DOSES/DAY Problem List As Of Date: 10/27/2023 (None) Letter Text Encounter Status:Closed by KERRIE TATE on 10/27/23 Normal [facility] FRANKLINOVandrew 10-05-2023 CNOV Office Visit (UCWSTR) ---- MARYURI ROSARIO ([id number]) 1995 F Date Time Provider Department 10/05/23 9:15 AM NOE PATEL [facility] During your visit today, we recorded the following information about you: Temperature Pulse Respiration Blood pressure 98.7 degrees 85/minute 21/minute 104/78 Weight 63.5 kg Noe Patel PA 10/05/2023 9:26 AM Signed This note was created using MeeDoc. Subjective Maryuri Rosario is a 28 year old female. [...] detail warranting prompt ER evaluation. URSULA Guillen Allergies As of Date: 10/05/2023 (No Known Allergies) Date Reviewed: 10/05/2023 Reviewed by: Laya Johns MA - Fully Assessed Reason for Visit: Sore Throat [200] Cmt: ROQUE x 2 days Primary Visit Diagnosis:Strep pharyngitis [J02.0] Other Visit Diagnosis:Sore throat [J02.9] Order(s):STREP A MOLECULAR (POC) [[id number]] Order #: [id number]. #:[id number] amoxicillin (AMOXIL) 500 mg capsuleTake 1 capsule by mouth two times a day for 10 days.Disp: 20 capsuleRfl: 0 Prescriptions as of 10/05/2023 - amoxicillin (AMOXIL) 500 mg capsule Take 1 capsule by mouth two times a day for 10 days. - 28 mg iron- 800 mcg tab Take 1 tablet by mouth every afternoon. - pantoprazol (more content not included)... Normal [facility] STREP A MOLECULAR (POC)on Procedural Control Valid [facility] Strep A (POCT) Positive Abnormal Negative [facility] CNOVon 07-23-2023 CNOV Office Visit (UCWSTR) ---- MARYURI ROSARIO ([id number]) 1995 F Date Time Provider Department 07/23/23 11:45 AM MAIRA KRAMER [facility] During your visit today, we recorded the following information about you: Temperature Pulse Respiration Blood pressure 98.2 degrees 85/minute 18/minute 112/77 Weight 64.7 kg Maira Kramer APRN.CNP 07/23/2023 12:20 PM Signed This note was created using Kweliariter. Subjective Maryuri Rosario is a 27 year old female. 27 year old female with no PMH presents for illness. Acute onset over a week ago +sinus pressure +sore throat +post nasal drainage +headache Denies cough Denies body aches Denies tobacco usage Has used Sudafed. The history is provided by the patient. No institutional nutrition consultant was used. Sinus Problem This is [...] Negative for color change, pallor and rash. Allergic/Immunologi c: Negative for environmental allergies, food allergies and immunocompromised state. Neurological: Positive for headaches. Negative for dizziness, vertigo, facial asymmetry, weakness and numbness. Hematological: Negative for adenopathy. Does not bruise/bleed easily. Psychiatric/Behavio ral: Negative for agitation and behavioral problems. Objective [...] friction rub. Pulmonary: Effort: Pulmonary effort is normal (more content not included)... Normal [facility] 06-05-2023 Hematocrit (Bld) [Volume fraction] 30.1 % Low 37.0-47.0 [facility] ([place]) Comment on above: Performed By: #### H H #### [place] [address] Hgb 10.5 G/dL Low 12.0-16.0 [facility] ([place]) Comment on above: Performed By: #### H H #### [address] [address] LABORATORYOrdered By: SYSTEM SYSTEM on 06-05-2023 Hematocrit (Bld) [Volume fraction] 30.1 % Invalid Interpretation Code 37.0 - 47.0 % AO Workflow SS Hemoglobin (Bld) [Mass/Vol] 10.5 G/dL Invalid Interpretation Code 12.0 - 16.0 G/dL AO Workflow SS RPRon 06-05-2023 Reagin Ab RPR Ql (S) Non-Reactive Normal Non-Reactive [facility] ([place]) Comment on above: Result Comment: The RPR test is a non-treponemal assay useful as an aid in the diagnosis of primary and secondary syphilis. It converts to positive generally within 2 weeks after the appearance of a lesion. This test is also useful for monitoring response to antibiotic therapy. A positive RPR screening test will be followed by the FTA ABS test. False positive RPR tests may occur in 1) patients with underlying autoimmune disorders, 2) elderly patients, 3) , and 4) other conditions with abnormal serum globulins. Performed By: #### A CYNTHIA RICK, CBC #### [place] [address] #### RPR #### [address] [address] .Auto Diffon 06-04-2023 Basophil, Absolute 0.0 10 3/mcL Normal 0.0-0.2 [facility] ([place]) Comment on above: Performed By: #### A CYNTHIA RICK, CBC #### [address] [address] #### RPR #### [address] [address] Basophils/100 WBC (Bld) 0.3 % Normal 0.0-2.5 [facility] ([place]) Comment on above: Performed By: #### A CYNTHIA RICK, CBC #### [address] [address] #### RPR #### [address] [address] Eosinophil, Absolute 0.0 10 3/mcL Normal 0.0-0.4 [facility] ([place]) Comment on above: Performed By: #### A PRABHJOT, ADIFF, CBC #### [address] [address] #### RPR #### [address] [address] Eosinophils/100 WBC (Bld) 0.4 % Normal 0.0-7.0 [facility] ([place]) Comment on above: Performed By: #### A PRABHJOT, ADIFF, CBC #### [address] [address] #### RPR #### [address] [address] Lymphocyte, Absolute 1.4 10 3/mcL Normal 0.8-3.9 [facility] ([place]) Comment on above: Performed By: #### A PRABHJOT, ADIFF, CBC #### [address] [address] #### RPR #### [address] [address] Lymphocytes/100 WBC (Bld) 21.7 % Normal 10.0-50.0 [facility] ([place]) Comment on above: Performed By: #### A PRABHJOT, ADIFF, CBC #### [address] [address] #### RPR #### [address] [address] Monocyte, Absolute 0.5 10 3/mcL Normal 0.2-1.0 [facility] ([place]) Comment on above: Performed By: #### A PRABHJOT, ADIFF, CBC #### [address] [address] #### RPR #### [address] [address] Monocytes/100 WBC (Bld) 7.9 % Normal 1.7-13.0 [facility] ([place]) Comment on above: Performed By: #### A PRABHJOT, ADIFF, CBC #### [address] [address] #### RPR #### [address] [address] Neutrophils/100 WBC (Bld) 69.7 % Normal 37.0-80.0 [facility] ([place]) Comment on above: Performed By: #### A PRABHJOT, ADIFF, CBC #### [place] [address] #### RPR #### [address] [address] .NEUABSon 06-04-2023 Neutrophil, Absolute 4.4 10 3/mcL Normal 2.9-6.2 [facility] ([place]) Comment on above: Performed By: #### A PRABHJOT, ADIFF, CBC #### [place] [address] #### RPR #### [place] [address] CBCon 06-04-2023 Erythrocyte distribution width (RBC) [Ratio] 13.3 % Normal 11.5-14.5 [facility] ([place]) Comment on above: Performed By: #### A PRABHJOT, RANCHOIFF, CBC #### [address] [address] #### RPR #### [address] [address] Hematocrit (Bld) [Volume fraction] 33.7 % Low 37.0-47.0 [facility] ([place]) Comment on above: Performed By: #### A PRABHJOT, ADIFF, CBC #### [address] [address] #### RPR #### [place] [address] Hgb 11.7 G/dL Low 12.0-16.0 [facility] ([place]) Comment on above: Performed By: #### A PRBAHJOT, ADIFF, CBC #### [place] [id number] #### RPR #### [address] [address] MCH (RBC) [Entitic mass] 31.0 pg Normal 27.0-31.2 [facility] ([place]) Comment on above: Performed By: #### A RANCHO RICKIFF, CBC #### [address] [address] #### RPR #### [place] [address] MCHC 34.9 G/dL Normal 33.0-37.0 [facility] ([place]) Comment on above: Performed By: #### A CYNTHIA RICK, CBC #### [place] [address] #### RPR #### [place] [address] MCV (RBC) [Entitic vol] 88.9 fL Normal 80.0-94.0 [facility] ([place]) Comment on above: Performed By: #### A CYNTHIA RICK, CBC #### [place] [address] #### RPR #### [place] [address] Platelet 168 10 3/mcL Normal 130-400 [facility] ([place]) Comment on above: Performed By: #### A CYNTHIA RICK, CBC #### [place] [address] #### RPR #### [place] [address] Platelet mean volume (Bld) [Entitic vol] 8.5 fL Normal 7.4-10.4 [facility] ([place]) Comment on above: Performed By: #### A CYNTHIA RICK, CBC #### [place] [address] #### RPR #### [place] [address] RBC 3.78 10 6/mcL Low 4.20-5.40 [facility] ([place]) Comment on above: Performed By: #### A PRABHJOT, ADIFF, CBC #### [address] [address] #### RPR #### [facility] [address] [place] [address] WBC 6.4 10 3/mcL Normal 4.6-10.8 [facility] ([place]) Comment on above: Performed By: #### A PRABHJOT, ADIFF, CBC #### [address] [address] #### RPR #### [facility] [address] [place] [address] Gel ABOon 06-04-2023 ABO/Rh Interp Positive Invalid Interpretation Code [facility] ([place]) Comment on above: Performed By: #### A PRABHJOT, ADIFF, CBC #### [address] [address] #### RPR #### [facility] [address] [place] [address] Gel ABSon 06-04-2023 Antibody Screen Gel Negative Normal [facility] ([place]) Comment on above: Performed By: #### A PRABHJOT, ADIFF, CBC #### [address] [address] #### RPR #### [address] [address] LABORATORYOrdered By: Angy Zamora on 06-04-2023 ABO/Rh Interp Positive Invalid Interpretation Code AO BB SS Antibody Screen Gel Negative ABSC (06/04/23 8:02 AM) Invalid Interpretation Code AO BB SS LABORATORYOrdered By: SYSTEM SYSTEM on 06-04-2023 Basophil, Absolute 0.0 103/mcL Invalid Interpretation Code 0.0 - 0.2 10^3/mcL AO Workflow SS Basophils/100 WBC (Bld) 0.3 % Invalid Interpretation Code 0.0 - 2.5 % AO Workflow SS Eosinophil, Absolute 0.0 103/mcL Invalid Interpretation Code 0.0 - 0.4 10^3/mcL AO Workflow SS Eosinophils/100 WBC (Bld) 0.4 % Invalid Interpretation Code 0.0 - 7.0 % AO Workflow SS Erythrocyte distribution width (RBC) [Ratio] 13.3 % Invalid Interpretation Code 11.5 - 14.5 % AO Workflow SS Hematocrit (Bld) [Volume fraction] 33.7 % Invalid Interpretation Code 37.0 - 47.0 % AO Workflow SS Hemoglobin (Bld) [Mass/Vol] 11.7 G/dL Invalid Interpretation Code 12.0 - 16.0 G/dL AO Workflow SS Lymphocyte, Absolute 1.4 103/mcL Invalid Interpretation Code 0.8 - 3.9 10^3/mcL AO Workflow SS Lymphocytes/100 WBC (Bld) 21.7 % Invalid Interpretation Code 10.0 - 50.0 % AO Workflow SS MCH (RBC) [Entitic mass] 31.0 pg Invalid Interpretation Code 27.0 - 31.2 pg AO Workflow SS MCHC 34.9 G/dL Invalid Interpretation Code 33.0 - 37.0 G/dL AO Workflow SS MCV (RBC) [Entitic vol] 88.9 fL Invalid Interpretation Code 80.0 - 94.0 fL AO Workflow SS Monocyte, Absolute 0.5 103/mcL Invalid Interpretation Code 0.2 - 1.0 10^3/mcL AO Workflow SS Monocytes/100 WBC (Bld) 7.9 % Invalid Interpretation Code 1.7 - 13.0 % AO Workflow SS Neutrophil, Absolute 4.4 103/mcL Invalid Interpretation Code 2.9 - 6.2 10^3/mcL AO Workflow SS Neutrophils/100 WBC (Bld) 69.7 % Invalid Interpretation Code 37.0 - 80.0 % AO Workflow SS Platelet mean volume (Bld) [Entitic vol] 8.5 fL Invalid Interpretation Code 7.4 - 10.4 fL AO Workflow SS Platelets (Bld) [#/Vol] 168 103/mcL Invalid Interpretation Code 130 - 400 10^3/mcL AO Workflow SS RBC (Bld) [#/Vol] 3.78 106/mcL Invalid Interpretation Code 4.20 - 5.40 10^6/mcL AO Workflow SS WBC (Bld) [#/Vol] 6.4 103/mcL Invalid Interpretation Code 4.6 - 10.8 10^3/mcL AO Workflow SS LABORATORYOrdered By: Leeann Mehta on 06-04-2023 Reagin Ab RPR Ql (S) Non-Reactive 1 (06/04/23 8:02 AM) Invalid Interpretation Code Non-Reactive Man Viro/Sero SS Comment on above: Interpretive Data: T he RPR test is a non-treponemal assay useful as an aid in the diagnosis of primary and secondary syphilis. It converts to positive generally within 2 weeks after the appearance of a lesion. This test is also useful for monitoring response to antibiotic therapy. A positive RPR screening test will be followed by the FTA ABS test. False positive RPR tests may occur in 1) patients with underlying autoimmune disorders, 2) elderly patients, 3) , and 4) other conditions with abnormal serum globulins. LABORATORYOrdered By: Cassandra Alvarenga on 06-04-2023 Group B Strep Date Performed [id number] [facility] Group B Strep, External Negative (06/04/23 6:04 AM) [facility] Hepatitis B Date Performed [id number] [facility] Hepatitis B, External Negative (06/04/23 6:04 AM) [facility] HIV Antibodies, External Negative (06/04/23 6:04 AM) [facility] RPR, External Nonreactive (06/04/23 6:04 AM) [facility] Rubella Date Performed [id number] [facility] Rubella, External Immune (06/04/23 6:04 AM) [facility] RPRon 05-21-2023 Reagin Ab RPR Ql (S) Non-Reactive Normal Non-Reactive [facility] ([place]) Comment on above: Result Comment: The RPR test is a non-treponemal assay useful as an aid in the diagnosis of primary and secondary syphilis. It converts to positive generally within 2 weeks after the appearance of a lesion. This test is also useful for monitoring response to antibiotic therapy. A positive RPR screening test will be followed by the FTA ABS test. False positive RPR tests may occur in 1) patients with underlying autoimmune disorders, 2) elderly patients, 3) , and 4) other conditions with abnormal serum globulins. Performed By: #### A RANCHO RICKIFF, CBC #### [place] [address] #### RPR #### [address] [address] .Auto Diffon 05-19-2023 Basophil, Absolute 0.0 10 3/mcL Normal 0.0-0.2 [facility] ([place]) Comment on above: Performed By: #### A RANCHO RICKIFF, CBC #### [place] [address] #### RPR #### [address] [address] Basophils/100 WBC (Bld) 0.4 % Normal 0.0-2.5 [facility] ([place]) Comment on above: Performed By: #### A PRABHJOTRANCHOIFF, CBC #### [place] [address] #### RPR #### [address] [address] Eosinophil, Absolute 0.0 10 3/mcL Normal 0.0-0.4 [facility] ([place]) Comment on above: Performed By: #### A PRABHJOTRANCHOIFF, CBC #### [place] [address] #### RPR #### [address] [address] Eosinophils/100 WBC (Bld) 0.5 % Normal 0.0-7.0 [facility] ([place]) Comment on above: Performed By: #### A PRABHJOT, RANCHOIFF, CBC #### [place] [id number] #### RPR #### [address] [address] Lymphocyte, Absolute 1.5 10 3/mcL Normal 0.8-3.9 [facility] ([place]) Comment on above: Performed By: #### A PRABHJOT, ADIFF, CBC #### [address] [address] #### RPR #### [address] [address] Lymphocytes/100 WBC (Bld) 23.2 % Normal 10.0-50.0 [facility] ([place]) Comment on above: Performed By: #### A PRABHJOT, ADIFF, CBC #### [address] [address] #### RPR #### [address] [address] Monocyte, Absolute 0.5 10 3/mcL Normal 0.2-1.0 [facility] ([place]) Comment on above: Performed By: #### A PRABHJOT, ADIFF, CBC #### [address] [address] #### RPR #### [address] [address] Monocytes/100 WBC (Bld) 8.2 % Normal 1.7-13.0 [facility] ([place]) Comment on above: Performed By: #### A PRABHJOT, ADIFF, CBC #### [address] [address] #### RPR #### [address] [address] Neutrophils/100 WBC (Bld) 67.7 % Normal 37.0-80.0 [facility] ([place]) Comment on above: Performed By: #### A PRABHJOT, ADIFF, CBC #### [address] [address] #### RPR #### [address] [address] .NEUABSon 05-19-2023 Neutrophil, Absolute 4.5 10 3/mcL Normal 2.9-6.2 [facility] ([place]) Comment on above: Performed By: #### A PRABHJOT, ADIFF, CBC #### [address] [address] #### RPR #### [address] [address] CBCon 05-19-2023 Erythrocyte distribution width (RBC) [Ratio] 13.2 % Normal 11.5-14.5 [facility] ([place]) Comment on above: Performed By: #### A RANCHO RICKIFF, CBC #### [place] [id number] #### RPR #### [place] [address] Hematocrit (Bld) [Volume fraction] 34.8 % Low 37.0-47.0 [facility] ([place]) Comment on above: Performed By: #### A RANCHO RICKIFF, CBC #### [place] [address] #### RPR #### [place] [address] Hgb 12.0 G/dL Normal 12.0-16.0 [facility] ([place]) Comment on above: Performed By: #### A CYNTHIA RICK, CBC #### [place] [address] #### RPR #### [place] [address] MCH (RBC) [Entitic mass] 31.0 pg Normal 27.0-31.2 [facility] ([place]) Comment on above: Performed By: #### A PRABHJOTRANCHOIFF, CBC #### [place] [id number] #### RPR #### [place] [address] MCHC 34.4 G/dL Normal 33.0-37.0 [facility] ([place]) Comment on above: Performed By: #### A PRABHJOT, RANCHOIFF, CBC #### [place] [id number] #### RPR #### [facility] [address] [place], [place] [address] MCV (RBC) [Entitic vol] 90.0 fL Normal 80.0-94.0 [facility] ([place]) Comment on above: Performed By: #### A RANCHO RICKIFF, CBC #### [place] [address] #### RPR #### [place] [address] Platelet 180 10 3/mcL Normal 130-400 [facility] ([place]) Comment on above: Performed By: #### A RANCHO RICKIFF, CBC #### [place] [address] #### RPR #### [place] [address] Platelet mean volume (Bld) [Entitic vol] 8.3 fL Normal 7.4-10.4 [facility] ([place]) Comment on above: Performed By: #### A CYNTHIA RICK, CBC #### [place] [address] #### RPR #### [place] [address] RBC 3.87 10 6/mcL Low 4.20-5.40 [facility] ([place]) Comment on above: Performed By: #### A RANCHO RICKIFF, CBC #### [place] [address] #### RPR #### [place] [address] WBC 6.6 10 3/mcL Normal 4.6-10.8 [facility] ([place]) Comment on above: Performed By: #### A RANCHO RICKIFF, CBC #### [place] [address] #### RPR #### [address] [address] GBSPCRon 05-12-2023 Group B Strep (PCR) Negative Normal Negative [facility] ([place]) Comment on above: Performed By: #### G BSPCR #### [place] [address] [place], [place] [address] Group B Strep PCR Int Normal [facility] ([place]) Comment on above: Result Comment: Grou p B Streptococcus DNA not detected by real-time PCR. A negative result does not rule out the possibility of Group B streptococcus. Assay should be used as an adjunct to clinical observations and other information available to the physician. The test is not intended to differentiate carriers of Group B streptococcus from those with streptococcal disease. See Below Performed By: #### G BSPCR #### [place] [address] [place], [place] [address] CNOVon 04-23-2023 CNOV Office Visit (UCWSTR) ---- MARYURI ROSARIO ([id number]) 1995 F Date Time Provider Department 04/23/23 8:45 AM QUINN LOPEZ [facility] During your visit today, we recorded the following information about you: Temperature Pulse Respiration Blood pressure 98 degrees 108/minute 18/minute 117/76 Weight 73.6 kg Quinn Lopez APRN.BATTERY PLATE ASSEMBLER 04/23/2023 9:11 AM Signed Subjective HPI 30-week female presents to urgent care with chief complaint of upper respiratory tract like infection. Duration of symptoms 3 days. Associated symptoms sore throat, nasal congestion, nasal discharge and nonproductive cough. Patient denies the use of any [id number] medications or home remedies for symptom management. [...] will follow up with primary care provider (more content not included)... Normal [facility] RPRon 03-24-2023 Reagin Ab RPR Ql (S) Non-Reactive Normal Non-Reactive [facility] ([place]) Comment on above: Result Comment: The RPR test is a non-treponemal assay useful as an aid in the diagnosis of primary and secondary syphilis. It converts to positive generally within 2 weeks after the appearance of a lesion. This test is also useful for monitoring response to antibiotic therapy. A positive RPR screening test will be followed by the FTA ABS test. False positive RPR tests may occur in 1) patients with underlying autoimmune disorders, 2) elderly patients, 3) , and 4) other conditions with abnormal serum globulins. Performed By: #### A PRABHJOT, ADIFF, CBC #### [facility] [address] [place] [address] #### RPR #### [address] [address] .Auto Diffon 03-23-2023 Basophil, Absolute 0.0 10 3/mcL Normal 0.0-0.2 [facility] ([place]) Comment on above: Performed By: #### C BC, ANEU, GLU1P, ADIFF #### [address] [address] #### RPR #### [address] [address] Basophils/100 WBC (Bld) 0.4 % Normal 0.0-2.5 [facility] ([place]) Comment on above: Performed By: #### C BC, ANEU, GLU1P, ADIFF #### [address] [address] #### RPR #### [address] [address] Eosinophil, Absolute 0.0 10 3/mcL Normal 0.0-0.4 [facility] ([place]) Comment on above: Performed By: #### C BC, ANEU, GLU1P, ADIFF #### [place] [address] #### RPR #### [address] [address] Eosinophils/100 WBC (Bld) 0.4 % Normal 0.0-7.0 [facility] ([place]) Comment on above: Performed By: #### C BC, ANEU, GLU1P, ADIFF #### [place] [address] #### RPR #### [address] [address] Lymphocyte, Absolute 1.3 10 3/mcL Normal 0.8-3.9 [facility] ([place]) Comment on above: Performed By: #### C BC, ANEU, GLU1P, ADIFF #### [address] [address] #### RPR #### [address] [address] Lymphocytes/100 WBC (Bld) 18.7 % Normal 10.0-50.0 [facility] ([place]) Comment on above: Performed By: #### C BC, ANEU, GLU1P, ADIFF #### [address] [address] #### RPR #### [address] [address] Monocyte, Absolute 0.4 10 3/mcL Normal 0.2-1.0 [facility] ([place]) Comment on above: Performed By: #### C BC, ANEU, GLU1P, ADIFF #### [place] [address] #### RPR #### [place] [address] Monocytes/100 WBC (Bld) 6.3 % Normal 1.7-13.0 [facility] ([place]) Comment on above: Performed By: #### C BC, ANEU, GLU1P, ADIFF #### [place] [address] #### RPR #### [address] [address] Neutrophils/100 WBC (Bld) 74.2 % Normal 37.0-80.0 [facility] ([place]) Comment on above: Performed By: #### C BC, ANEU, GLU1P, ADIFF #### [place] [address] #### RPR #### [address] [address] .NEUABSon 03-23-2023 Neutrophil, Absolute 5.0 10 3/mcL Normal 2.9-6.2 [facility] ([place]) Comment on above: Performed By: #### C BC, ANEU, GLU1P, ADIFF #### [place] [address] #### RPR #### [address] [address] CBCon 03-23-2023 Erythrocyte distribution width (RBC) [Ratio] 14.0 % Normal 11.5-14.5 [facility] ([place]) Comment on above: Performed By: #### C BC, ANEU, GLU1P, ADIFF #### [place] [address] #### RPR #### [place] [address] Hematocrit (Bld) [Volume fraction] 32.1 % Low 37.0-47.0 [facility] ([place]) Comment on above: Performed By: #### C BC, ANEU, GLU1P, ADIFF #### [place] [address] #### RPR #### [place] [address] Hgb 10.9 G/dL Low 12.0-16.0 [facility] ([place]) Comment on above: Performed By: #### C BC, ANEU, GLU1P, ADIFF #### [place] [address] #### RPR #### [place] [address] MCH (RBC) [Entitic mass] 30.6 pg Normal 27.0-31.2 [facility] ([place]) Comment on above: Performed By: #### C BC, ANEU, GLU1P, ADIFF #### [place] [address] #### RPR #### [place] [address] MCHC 34.0 G/dL Normal 33.0-37.0 [facility] ([place]) Comment on above: Performed By: #### C BC, ANEU, GLU1P, ADIFF #### [place] [address] #### RPR #### [place] [address] MCV (RBC) [Entitic vol] 90.1 fL Normal 80.0-94.0 [facility] ([place] Comment on above: Performed By: #### C BC, ANEU, GLU1P, ADIFF #### [address] [address] #### RPR #### [address] [address] Platelet 209 10 3/mcL Normal 130-400 [facility] ([place]) Comment on above: Performed By: #### C BC, ANEU, GLU1P, ADIFF #### [place] [address] #### RPR #### [place] [address] Platelet mean volume (Bld) [Entitic vol] 8.1 fL Normal 7.4-10.4 [facility] ([place]) Comment on above: Performed By: #### C BC, ANEU, GLU1P, ADIFF #### [place] [address] #### RPR #### [place] [address] RBC 3.57 10 6/mcL Low 4.20-5.40 [facility] ([place]) Comment on above: Performed By: #### C BC, ANEU, GLU1P, ADIFF #### [place] [address] #### RPR #### [place] [address] WBC 6.8 10 3/mcL Normal 4.6-10.8 [facility] ([place]) Comment on above: Performed By: #### C BC, ANEU, GLU1P, ADIFF #### [place] [address] #### RPR #### [place] [address] [id number] 03-23-2023 Glucose [Mass/Vol] 135 mg/dL Normal 70-140 [facility] ([place]) Comment on above: Performed By: #### C BC, ANEU, GLU1P, ADIFF #### [place] [address] #### RPR #### [place] [address] LABORATORYOrdered By: SYSTEM SYSTEM on 03-23-2023 Basophil, Absolute 0.0 103/mcL Invalid Interpretation Code 0.0 - 0.2 10^3/mcL AO Workflow SS Basophils/100 WBC (Bld) 0.4 % Invalid Interpretation Code 0.0 - 2.5 % AO Workflow SS Eosinophil, Absolute 0.0 103/mcL Invalid Interpretation Code 0.0 - 0.4 10^3/mcL AO Workflow SS Eosinophils/100 WBC (Bld) 0.4 % Invalid Interpretation Code 0.0 - 7.0 % AO Workflow SS Erythrocyte distribution width (RBC) [Ratio] 14.0 % Invalid Interpretation Code 11.5 - 14.5 % AO Workflow SS Glucose [Mass/Vol] 135 mg/dL Invalid Interpretation Code 70 - 140 mg/dL AO ADM SS Hematocrit (Bld) [Volume fraction] 32.1 % Invalid Interpretation Code 37.0 - 47.0 % AO Workflow SS Hemoglobin (Bld) [Mass/Vol] 10.9 G/dL Invalid Interpretation Code 12.0 - 16.0 G/dL AO Workflow SS Lymphocyte, Absolute 1.3 103/mcL Invalid Interpretation Code 0.8 - 3.9 10^3/mcL AO Workflow SS Lymphocytes/100 WBC (Bld) 18.7 % Invalid Interpretation Code 10.0 - 50.0 % AO Workflow SS MCH (RBC) [Entitic mass] 30.6 pg Invalid Interpretation Code 27.0 - 31.2 pg AO Workflow SS MCHC 34.0 G/dL Invalid Interpretation Code 33.0 - 37.0 G/dL AO Workflow SS MCV (RBC) [Entitic vol] 90.1 fL Invalid Interpretation Code 80.0 - 94.0 fL AO Workflow SS Monocyte, Absolute 0.4 103/mcL Invalid Interpretation Code 0.2 - 1.0 10^3/mcL AO Workflow SS Monocytes/100 WBC (Bld) 6.3 % Invalid Interpretation Code 1.7 - 13.0 % AO Workflow SS Neutrophil, Absolute 5.0 103/mcL Invalid Interpretation Code 2.9 - 6.2 10^3/mcL AO Workflow SS Neutrophils/100 WBC (Bld) 74.2 % Invalid Interpretation Code 37.0 - 80.0 % AO Workflow SS Platelet mean volume (Bld) [Entitic vol] 8.1 fL Invalid Interpretation Code 7.4 - 10.4 fL AO Workflow SS Platelets (Bld) [#/Vol] 209 103/mcL Invalid Interpretation Code 130 - 400 10^3/mcL AO Workflow SS RBC (Bld) [#/Vol] 3.57 106/mcL Invalid Interpretation Code 4.20 - 5.40 10^6/mcL AO Workflow SS WBC (Bld) [#/Vol] 6.8 103/mcL Invalid Interpretation Code 4.6 - 10.8 10^3/mcL AO Workflow SS CNOVon 01-12-2023 CNOV Office Visit (UCWSTR) ---- MARYURI ROSARIO ([id number]) 1995 F Date Time Provider Department 01/12/23 12:30 PM KERRIE TATE [facility] During your visit today, we recorded the following information about you: Kerrie Tate APRN.BATTERY PLATE ASSEMBLER 01/12/2023 12:30 PM Signed Patient triaged at [facility]. Here today with worsening sob, no uri symptoms. 18 weeks . fur operator instructed to go to ER. I will refer to ER. Patient in no apparent distress at time of triage. Allergies As of Date: 01/12/2023 (No Known Allergies) Date Reviewed: 12/05/2022 Reviewed by: Danelle Dinh LPN - Fully Assessed Primary Visit Diagnosis:SOB (shortness of breath) [R06.02] Prescriptions as of 01/12/2023 - fluticasone (FLONASE) 50 mcg/actuation nasal spray Use 2 Sprays in each nostril once daily. Rinse mouth after use. - propranolol (INDERAL) 10 mg tablet Take 10 mg by mouth twice daily. - rizatriptan (MAXALT) 10 mg tablet 10 MG EVERY 2 HOURS NEEDED FOR MIGRAINE HEADACHE MAY REPEAT DOSE AFTER 2 HOURS UP TO 3 DOSES/DAY Problem List As Of Date: 01/12/2023 (None) Encounter Status:Closed by KERRIE TATE on 01/12/23 [facility] CNOVon 12-05-2022 CNOV Office Visit (UCWSTR) ---- MARYURI ROSARIO ([id number]) 1995 F Date Time Provider Department 12/05/22 9:30 AM MAIRA KRAMER [facility] During your visit today, we recorded the following information about you: Temperature Pulse Respiration Blood pressure 98.1 degrees 102/minute 18/minute 120/68 Weight Last Period 60.8 kg 08/29/22 Maira Kramer APRN.BATTERY PLATE ASSEMBLER 12/05/2022 9:59 AM Signed This note was created using Kweliar[employer]. Subjective Maryuri Rosario is a 27 year old female. 27 year old female with no PMH presents for illness. Acute onset 2 days ago +cough +nasal congestion +sinus pressure +ear pressure and pain Denies N/V/D Denies fever or chills Denies hemoptysis. 13 weeks OB () Has used cough drops Denies tobacco usage. The history is provided by the patient. No institutional nutrition consultant was used. Cough This is a [...] for color change, pallor, rash and wound. Allergic/Immunologi c: Negative for environmental allergies, food allergies and immunocompromised state. Neurological: Negative for headaches. Hematological: Negative for adenopathy. Does not bruise/bleed easily. Psychiatric/Behavio ral: Negative for agitation and behavioral problems. Objective [...] No swelling, tenderness, deformity or signs of in (more content not included)... Normal [facility] FLUABV + SARS-CoV-2 Pnl Resp DILCIA+prbon 12-05-2022 Influenza virus A and B RNA and SARS-CoV-2 (COVID-19) N gene panel DILCIA+probe (Resp) COVID 19 RESULT: Not detected The method used is RT-PCR or an equivalent NAAT method. Reference Range (the expected result in uninfected individuals): Not detected INFLUENZA A PCR: Not detected INFLUENZA B PCR: Not detected Normal [facility] Comment on above: Performed By: #### 9 [id number] ####[facility] LABCLIA [id number] [address] [place] LABORATORYOrdered By: Ruchi Saleem on 08-17-2021 Appearance (U) Clear (08/17/21 1:18 AM) Invalid Interpretation Code Clear AO Auto Urine SS Bilirubin Ql (U) Negative (08/17/21 1:18 AM) Invalid Interpretation Code Negative AO Auto Urine SS Color (U) Yellow (08/17/21 1:18 AM) Invalid Interpretation Code AO Auto Urine SS Glucose Test strip (U) [Mass/Vol] >=1000 mg/dL Invalid Interpretation Code Negativemg/dL AO Auto Urine SS HCG ( test) Ql Negative (08/17/21 1:18 AM) Invalid Interpretation Code AO Manual Urine SS Hemoglobin Auto test strip (U) [Mass/Vol] Negative (08/17/21 1:18 AM) Invalid Interpretation Code Negative AO Auto Urine SS Ketones Ql (U) 15 mg/dL Invalid Interpretation Code Negativemg/dL AO Auto Urine SS test (u) int Not detected Invalid Interpretation Code AO Manual Urine SS UA Leuk Est Trace *ABN* (08/17/21 1:18 AM) Invalid Interpretation Code Negative AO Auto Urine SS UA Nitrite Negative (08/17/21 1:18 AM) Invalid Interpretation Code Negative AO Auto Urine SS UA pH 5.0 (08/17/21 1:18 AM) Invalid Interpretation Code 5.0 - 8.0 AO Auto Urine SS UA Protein Negative Invalid Interpretation Code Negativemg/dL AO Auto Urine SS UA RBC None Seen /HPF Invalid Interpretation Code None Seen/HPF AO Auto Urine SS UA Spec Grav 1.010 *ABN* (08/17/21 1:18 AM) Invalid Interpretation Code 1.015-1.025 AO Auto Urine SS UA Specimen Type Clean Catch (08/17/21 1:18 AM) Invalid Interpretation Code AO Auto Urine SS UA Squam Epithelial 0-5 /HPF Invalid Interpretation Code None Seen/HPF AO Auto Urine SS UA Urobilinogen 0.2 E.U./dL Invalid Interpretation Code 0.2-1.0E.U./d L AO Auto Urine SS WBC LM.HPF (Urine sed) [#/Area] 0-5 /HPF Invalid Interpretation Code None Seen/HPF AO Auto Urine SS Vital Signs Date Time Vital Sign Value Performing Clinician Facility 12-02-2023 09:23-0400 Body temperature 97.9 [degF] John Villalobos MD Work Phone: [facility] 12-02-2023 09:23-0400 Body weight 62 kg John Villalobos MD Work Phone: [facility] 12-02-2023 09:23-0400 Diastolic blood pressure 66 mm[Hg] John Villalobos MD Work Phone: [facility] 12-02-2023 09:23-0400 Heart rate 84 /min John Villalobos MD Work Phone: [facility] 12-02-2023 09:23-0400 Respiratory rate 16 /min John Villalobos MD Work Phone: [facility] 12-02-2023 09:23-0400 SaO2% (BldA) [Mass fraction] 99 % John Villalobos MD Work Phone: [facility] 12-02-2023 09:23-0400 Systolic blood pressure 112 mm[Hg] John Villalobos MD Work Phone: [facility] 10-31-2023 08:48-0500 Body temperature 98.4 [degF] Luna Praisler-Wood INSPECTOR [employer]ATTERY [employer]ATE ASSEMBLER Work Phone: [facility] 10-31-2023 08:48-0500 Body weight 62.8 kg Luna Praisler-Wood INSPECTOR [employer]ATTER[employer]ATE ASSEMBLER Work Phone: [facility] 10-31-2023 08:48-0500 Diastolic blood pressure 64 mm[Hg] Luna Praisler-Wood INSPECTOR [employer]BATTER[employer]ATE ASSEMBLER Work Phone: [facility] 10-31-2023 08:48-0500 Heart rate 102 /min Luna Praisler-Wood INSPECTOR [employer]BATTERY [employer]ATE ASSEMBLER Work Phone: [facility] 10-31-2023 08:48-0500 Respiratory rate 18 /min Luna Praisler-Wood INSPECTOR [employer]BATTERY [employer]ATE ASSEMBLER Work Phone: [facility] 10-31-2023 08:48-0500 SaO2% (BldA) [Mass fraction] 98 % Luna Praisler-Wood INSPECTOR [employer]BATTERY PLATE ASSEMBLER Work Phone: [facility] 10-31-2023 08:48-0500 Systolic blood pressure 108 mm[Hg] Luna Praisler-Wood INSPECTOR [employer]BATTERY [employer]ATE ASSEMBLER Work Phone: [facility] 10-05-2023 09:15-0500 Body temperature 98.71 [degF] Noe Patel PA Work Phone: [facility] 10-05-2023 09:15-0500 Body weight 63.5 kg Beanislylaura Abshama PA Work Phone: [facility] 10-05-2023 09:15-0500 Diastolic blood pressure 78 mm[Hg] Krislyn Aberegg PA Work Phone: [facility] 10-05-2023 09:15-0500 Heart rate 85 /min Krislyn Aberegg PA Work Phone: [facility] 10-05-2023 09:15-0500 Respiratory rate 21 /min Krislyn Aberegg PA Work Phone: [facility] 10-05-2023 09:15-0500 SaO2% (BldA) [Mass fraction] 98 % Krislyn Aberegg PA Work Phone: [facility] 10-05-2023 09:15-0500 Systolic blood pressure 104 mm[Hg] Krislyn Aberegg PA Work Phone: [facility] 07-23-2023 12:07-0500 Body temperature 98.2 [degF] Maira Kramer INSPECTOR [employer]ATTERY [employer]ATE ASSEMBLER Work Phone: [facility] 07-23-2023 12:07-0500 Body weight 64.68 kg Maira Kramer INSPECTOR [employer]ATTERY [employer]ATE ASSEMBLER Work Phone: [facility] 07-23-2023 12:07-0500 Diastolic blood pressure 77 mm[Hg] Maira Kramer INSPECTOR [employer]BATTERY [employer]ATE ASSEMBLER Work Phone: [facility] 07-23-2023 12:07-0500 Heart rate 85 /min Maira Kramer INSPECTOR [employer]ATTERY [employer]ATE ASSEMBLER Work Phone: [facility] 07-23-2023 12:07-0500 Respiratory rate 18 /min Maira Kramer INSPECTOR [employer]ATTERY PLATE ASSEMBLER Work Phone: [facility] 07-23-2023 12:07-0500 SaO2% (BldA) [Mass fraction] 96 % Maira Kramer INSPECTOR [employer]BATTERY PLATE ASSEMBLER Work Phone: [facility] 07-23-2023 12:07-0500 Systolic blood pressure 112 mm[Hg] Maira Kramer INSPECTOR [employer]ATTERY [employer]ATE ASSEMBLER Work Phone: [facility] 06-05-2023 08:38-0400 Body temperature 98.78 [degF] ASHKAN WALTERS MD [facility] 06-05-2023 08:38-0400 Diastolic Blood Pressure Non-Invasive 64 1 ASHKAN WALTERS MD [facility] 06-05-2023 08:38-0400 Heart rate 93 /min ASHKAN WALTERS MD [facility] 06-05-2023 08:38-0400 Respiratory rate 16 /min ASHKAN WALTERS MD [facility] 06-05-2023 08:38-0400 Systolic Blood Pressure Non-Invasive 105 1 ASHKAN WALTERS MD [facility] 06-04-2023 23:41-0400 Body temperature 97.88 [degF] ASHKAN WALTERS MD [facility] 06-04-2023 23:41-0400 Diastolic Blood Pressure Non-Invasive 70 1 ASHKAN WALTERS MD [facility] 06-04-2023 23:41-0400 Heart rate 82 /min ASHKAN WALTERS MD [facility] 06-04-2023 23:41-0400 Respiratory rate 18 /min ASHKAN WALTERS MD [facility] 06-04-2023 23:41-0400 Systolic Blood Pressure Non-Invasive 107 1 ASHKAN WALTERS MD [facility] 06-04-2023 20:21-0400 Body temperature 98.78 [degF] ASHKAN WALTERS MD [facility] 06-04-2023 16:03-0400 Diastolic Blood Pressure Non-Invasive 74 1 ASHKAN WALTERS MD [facility] 06-04-2023 16:03-0400 Heart rate 83 /min ASHKAN WALTERS MD [facility] 06-04-2023 16:03-0400 Respiratory rate 16 /min ASHKAN WALTERS MD [facility] 06-04-2023 16:03-0400 Systolic Blood Pressure Non-Invasive 125 1 ASHKAN WALTERS MD [facility] 06-04-2023 06:04-0400 Body height 155 cm ASHKAN WALTERS MD [facility] 06-04-2023 06:04-0400 Body weight 72.7 kg ASHKAN WALTERS MD [facility] 06-04-2023 06:04-0400 Body weight 30.26 kg/m2 ASHKAN WALTERS MD [facility] 04-23-2023 08:48-0400 Body temperature 98.01 [degF] Quinn Pendlebury INSPECTOR [employer]ATTERY [employer]ATE ASSEMBLER Work Phone: [facility] 04-23-2023 08:48-0400 Body weight 73.57 kg Quinn Pendewa INSPECTOR [employer]ATTER[employer]ATE ASSEMBLER Work Phone: [facility] 04-23-2023 08:48-0400 Diastolic blood pressure 76 mm[Hg] Quinn Pendlebury INSPECTOR [employer]ATTERY [employer]ATE ASSEMBLER Work Phone: [facility] 04-23-2023 08:48-0400 Heart rate 108 /min Quinn Pendewa INSPECTOR [employer]BATTERY [employer]ATE ASSEMBLER Work Phone: [facility] 04-23-2023 08:48-0400 Respiratory rate 18 /min Quinn Pendewa INSPECTOR [employer]BATTERY [employer]ATE ASSEMBLER Work Phone: [facility] 04-23-2023 08:48-0400 SaO2% (BldA) [Mass fraction] 98 % Quinn John INSPECTOR [employer]BATTERY [employer]ATE ASSEMBLER Work Phone: [facility] 04-23-2023 08:48-0400 Systolic blood pressure 117 mm[Hg] Quinn Balessana INSPECTOR [employer]BATTERY [employer]ATE ASSEMBLER Work Phone: [facility] 12-05-2022 09:39-0400 Body temperature 98.1 [degF] Maira Kramer INSPECTOR [employer]BATTERY PLATE ASSEMBLER Work Phone: [facility] 12-05-2022 09:39-0400 Body weight 60.78 kg Maira Kramer INSPECTOR [employer]ATTERY [employer]ATE ASSEMBLER Work Phone: [facility] 12-05-2022 09:39-0400 Diastolic blood pressure 68 mm[Hg] Maira Kramer INSPECTOR [employer]ATTERY [employer]ATE ASSEMBLER Work Phone: [facility] 12-05-2022 09:39-0400 Heart rate 102 /min Maira Kramer INSPECTOR [employer]BATTERY PLATE ASSEMBLER Work Phone: [facility] 12-05-2022 09:39-0400 Respiratory rate 18 /min Maira Kramer INSPECTOR [employer]BATTERY PLATE ASSEMBLER Work Phone: [facility] 12-05-2022 09:39-0400 SaO2% (BldA) [Mass fraction] 99 % Maira Kramer INSPECTOR [employer]BATTERY PLATE ASSEMBLER Work Phone: [facility] 12-05-2022 09:39-0400 Systolic blood pressure 120 mm[Hg] Maira Kramer INSPECTOR [employer]BATTERY [employer]ATE ASSEMBLER Work Phone: [facility] 10-22-2022 08:36-0500 Body temperature 98.1 [degF] John Villalobos MD Work Phone: [facility] 10-22-2022 08:36-0500 Body weight 63.96 kg John Villalobos MD Work Phone: [facility] 10-22-2022 08:36-0500 Diastolic blood pressure 64 mm[Hg] John Villalobos MD Work Phone: [facility] 10-22-2022 08:36-0500 Heart rate 73 /min John Villalobos MD Work Phone: [facility] 10-22-2022 08:36-0500 Respiratory rate 18 /min John Villalobos MD Work Phone: [facility] 10-22-2022 08:36-0500 SaO2% (BldA) [Mass fraction] 99 % John Villalobos MD Work Phone: [facility] 10-22-2022 08:36-0500 Systolic blood pressure 102 mm[Hg] John Villalobos MD Work Phone: [facility] 03-22-2022 13:43-0400 Body temperature 96.8 [degF] John Villalobos MD Work Phone: [facility] 03-22-2022 13:43-0400 Body weight 62.23 kg John Villalobos MD Work Phone: [facility] 03-22-2022 13:43-0400 Diastolic blood pressure 72 mm[Hg] John Villalobos MD Work Phone: [facility] 03-22-2022 13:43-0400 Heart rate 79 /min John Villalobos MD Work Phone: [facility] 03-22-2022 13:43-0400 Respiratory rate 20 /min John Villalobos MD Work Phone: [facility] 03-22-2022 13:43-0400 SaO2% (BldA) [Mass fraction] 99 % John Villalobos MD Work Phone: [facility] 03-22-2022 13:43-0400 Systolic blood pressure 118 mm[Hg] John Villalobos MD Work Phone: [facility] 10-19-2021 13:57-0500 Body temperature 98.42 [degF] EZRA HOOVER MD [facility] 10-19-2021 13:57-0500 Diastolic blood pressure 77 mm[Hg] EZRA HOOVER MD [facility] 10-19-2021 13:57-0500 Heart rate 108 /min EZRA HOOVER MD [facility] 10-19-2021 13:57-0500 Respiratory rate 18 /min EZRA HOOVER MD [facility] 10-19-2021 13:57-0500 Systolic blood pressure 116 mm[Hg] EZRA HOOVER MD [facility] 08-17-2021 01:44-0500 Body temperature 98.06 [degF] TOBIN MOORE MD [facility] 08-17-2021 01:44-0500 Diastolic blood pressure 73 mm[Hg] TOBIN MOORE MD [facility] 08-17-2021 01:44-0500 Heart rate 115 /min TOBIN MOORE MD [facility] 08-17-2021 01:44-0500 Respiratory rate 18 /min TOBIN MOORE MD [facility] 08-17-2021 01:44-0500 Systolic blood pressure 103 mm[Hg] TOBIN MOORE MD [facility] 08-16-2021 23:39-0500 Body height 157.5 cm TOBIN MOORE MD [facility] 08-16-2021 23:39-0500 Body temperature 98.42 [degF] TOBIN MOORE MD [facility] 08-16-2021 23:39-0500 Body weight 56.8 kg TOBIN MOORE MD [facility] 08-16-2021 23:39-0500 Diastolic blood pressure 79 mm[Hg] TOBIN MOORE MD [facility] 08-16-2021 23:39-0500 Heart rate 124 /min TOBIN MOORE MD [facility] 08-16-2021 23:39-0500 Respiratory rate 20 /min TOBIN MOORE MD [facility] 08-16-2021 23:39-0500 Systolic blood pressure 116 mm[Hg] TOBIN MOORE MD [facility] Encounters Encounter Date Encounter Type Care Provider Facility Start: 12-02-2023 End: 12-02-2023 ambulatory [facility] Facility:[facility] Start: 12-02-2023 End: 12-02-2023 Patient encounter procedure John Villalobos MD Work Phone: [facility] Comment on above: Eustachian tube dysf unction, bilateral (Primary Dx) Start: 11-01-2023 Telephone encounter Noe VERGARA Work Phone: [facility] Comment on above: Results Start: 10-31-2023 End: 10-31-2023 ambulatory [facility] Facility:[facility] Start: 10-31-2023 End: 10-31-2023 Patient encounter procedure Luna Howard INSPECTOR [employer]ATTERY PLATE ASSEMBLER Work Phone: [facility] Comment on above: Sore throat (Primary Dx); Bacterial sinusitis; Fever, unspecified fever cause Start: 10-27-2023 End: 10-27-2023 ambulatory [facility] Facility:[facility] Start: 10-05-2023 End: 10-05-2023 [facility] Facility:[facility] Start: 10-05-2023 End: 10-05-2023 Patient encounter procedure Noe VERGARA Work Phone: [facility] Comment on above: Strep pharyngitis (P rimary Dx); Sore throat Start: 07-23-2023 End: 07-23-2023 [facility] Facility:[facility] Start: 07-23-2023 End: 07-23-2023 Patient encounter procedure Maira Kramer INSPECTOR [employer]BATTERY PLATE ASSEMBLER Work Phone: [facility] Comment on above: Rhinosinusitis (Prim yary Dx) Start: 06-04-2023 End: 06-05-2023 Evaluation and management of inpatient ASHKAN WALTERS MD Facility:[facility] Start: 06-04-2023 End: 06-05-2023 Evaluation and management of inpatient ASHKAN WALTERS MD [facility] Start: 05-19-2023 End: 05-20-2023 ambulatory EMILIANO GONZALEZ INSPECTOR [employer]ATE ASSEMBLER Facility:[facility] Start: 05-11-2023 End: 05-16-2023 ambulatory EMILIANO GONZALEZ INSPECTOR [employer]ATE ASSEMBLER Facility:[facility] Start: 04-23-2023 End: 04-23-2023 ambulatory [facility] Facility:[facility] Start: 04-23-2023 End: 04-23-2023 Office outpatient visit 15 minutes Quinn Lopez INSPECTOR [employer]ATTERY [employer]ATE ASSEMBLER Work Phone: [facility] Comment on above: URI, acute (Primary Dx) Start: 03-23-2023 End: 03-24-2023 ambulatory ASHKAN WALTERS MD Facility:[facility] Start: 03-23-2023 End: 03-23-2023 Patient encounter procedure ASHKAN WALTERS MD [facility] Start: 02-20-2023 End: 02-21-2023 ambulatory ASHKAN WALTERS MD Facility:[facility] Start: 02-20-2023 End: 02-20-2023 Patient encounter procedure ASHKAN WALTERS MD [facility] Start: 01-12-2023 End: 01-13-2023 [facility] Start: 12-05-2022 End: 12-05-2022 ambulatory [facility] Facility:[facility] Start: 12-05-2022 End: 12-05-2022 Patient encounter procedure Maira Kramer APRN.CNP Work Phone: [facility] Comment on above: Bilateral otitis med ia, unspecified otitis media type (Primary Dx); URI, acute Start: 10-22-2022 End: 10-22-2022 Patient encounter procedure John Villalobos MD Work Phone: [facility] Comment on above: Gastroenteritis ([facility] Dx) Start: 03-22-2022 End: 03-22-2022 Patient encounter procedure John Villalobos MD Work Phone: [facility] Comment on above: URI, acute (Primary Dx) Start: 10-19-2021 End: 10-19-2021 Emergency department patient visit EZRA HOOVER MD [facility] Start: 08-16-2021 End: 08-17-2021 Emergency department patient visit TOBIN MOORE MD [facility] Procedures Date Procedure Procedure Detail Performing Clinician Start: 10-31-2023 STREP A MOLECULAR (POC) [facility] Provider Start: 10-05-2023 STREP A MOLECULAR (POC) [facility] Provider None (qualifier value) TOBIN MOORE MD Wrist region structu re (body structure) TOBIN MOORE MD Plan of Treatment Date Care Activity Detail Author Start: 06-05-2033 Urine microalbumin profile DTaP,Tdap,Td Vaccine (8 - Td or Tdap) [facility] Start: 04-24-2024 Influenza vaccination Influenz a Vaccine (Season Ended) [facility] Start: 08-24-2023 Behavioral Health Screening Behavioral Health Screening [facility] Start: 08-24-2023 Depression Assessment Depression Ass essment [facility] Start: 04-24-2023 Covid-19 Vaccine ( season) Covid-19 Vaccine () [facility] Start: 04-24-2023 Influenza vaccination C [facility] Start: 12-05-2022 End: 12-19-2022 Influenza virus A and B RNA and SARS-CoV-2 (COVID-19) N gene panel - Respiratory specimen by DILCIA with probe detection [facility] Work Phone: Comment on above: Expected: 12/05/2022 , Expires: 12/19/2022 Start: 10-22-2022 End: 11-05-2022 SARS-CoV-2 (COVID-19) RNA [Presence] in Respiratory specimen by DILCIA with probe detection 2019 CORONAVIRUS Microbiology Routine Gastroenteritis Expected: 10/22/2022, Expires: 11/05/2022 [facility] Work Phone: Comment on above: Expected: 10/22/2022 , Expires: 11/05/2022 Start: 08-24-2022 DEPRESSION ASSESSMENT DEPRESSION ASS ESSMENT [facility] Start: 04-24-2022 Influenza vaccination INFLUENZA (#1) [facility] Start: 2015 PAP TESTING PAP TESTING [facility] Start: 2015 Screening for malignant neoplasm of cervix Pap Testing [facility] Start: 2013 Urine microalbumin profile DTAP,TDAP,TD (1 - Tdap) [facility] Start: 2012 HEPATITIS C SCREENING HEPATITIS C [facility] Start: 2012 Hepatitis C screening Hepatitis C [facility] Start: 2012 HIV SCREENING HIV SCREENING [facility] Start: 2012 HIV screening HIV Screening [facility] Start: 2006 Adult depression screening assessment DEPRESSION SCREENING [facility] Start: 01-29-1995 COVID-19 VACCINE (#1) COVID-19 VACCI NE (#1) [facility] Start: 1994 HEPATITIS B (1 of 3 - 3-dose series) HEPATITIS B (1 of 3 - 3-dose series) [facility] COVID & INFLUENZA A/ B & RSV NAAT, ROUTINE COVID & INFLUENZA A/B & RSV NAAT, ROUTINE Microbiology Routine Fever, unspecified fever cause Ordered: 10/31/2023 [facility] Work Phone: Comment on above: Ordered: 10/31/2023 Immunizations Immunization Date Immunization Notes Care Provider Fa manjinder 06-05-2023 tetanus toxoid, redu samira diphtheria toxoid, and acellular pertussis vaccine, adsorbed ASHKAN WALTERS MD [facility] 08-19-2018 influenza virus vaccine, unspecified formulation Maira Kramer APRN.CNP Work Phone: [facility] 03-18-2012 tetanus toxoid, redu samira diphtheria toxoid, and acellular pertussis vaccine, adsorbed TOBIN MOORE MD [facility] 07-12-2009 influenza virus vaccine, H1N1, live TOBIN MOORE MD [facility] 05-11-2006 hepatitis A vaccine, pediatric dosage, unspecified formulation TOBIN MOORE MD [facility] 05-28-2001 measles/mumps/rubell a virus vaccine TOBIN MOORE MD [facility] 01-06-1996 haemophilus influenz ae type b vaccine, PRP-T conjugate TOBIN MOORE MD [facility] 01-06-1996 hepatitis B pediatri c vaccine TOBIN MOORE MD [facility] 05-01-1995 hepatitis B pediatri c vaccine TOBIN MOORE MD [facility] 02-20-1995 haemophilus influenz ae type b vaccine, PRP-T conjugate TOBNI MOORE MD [facility] 02-20-1995 hepatitis B pediatri c vaccine TOBIN MOORE MD [facility] 1994 haemophilus influenz ae type b vaccine, PRP-T conjugate TOBIN MOORE MD [facility] 1994 hepatitis B pediatri c vaccine TOBIN MOORE MD [facility] 1994 measles/mumps/rubell a virus vaccine TOBIN MOORE MD [facility] 1994 haemophilus influenz ae type b vaccine, PRP-T conjugate TOBIN MOORE MD [facility] 1994 hepatitis B pediatri c vaccine TOBIN MOORE MD [facility] 1994 hepatitis B pediatri c vaccine TOBIN MOOER MD [facility] 1994 hepatitis B pediatri c vaccine TOBIN MOORE MD [facility] Payers Date Payer Category Payer Medicaid [id number] 2022 Unknown [id number] 2015 Medicaid [employer] [id number] 2015-Present [phone] [address] [place] [address] Medicaid [id number] 1994 Unknown [id number] 1994 Unknown [id number] 1994 Unknown [id number] 1994 Unknown [id number] 1994 Unknown [id number] Social History Date Type Detail Facility Start: 01-25-2021 Never smoked t obacco (finding) [facility] Sex Assigned At [facility] Start: 11-19-2015 End: 10-22-2022 Tobacco smoking status NHIS Ex-smoker [facility] Work Phone: Start: 11-19-2015 End: 10-22-2022 Tobacco use and exposure Smokeless tobacco non-user [facility] Work Phone: Start: 03-22-2022 End: 12-02-2023 Alcohol intake Not Asked [facility] Start: 1994 Sex Assigned At Not on file [facility] Start: 03-12-2022 End: 03-22-2022 Exposure to SARS-CoV-2 (event) Not sure [facility] History of tobacco use Current smoker [facility] Start: 2020 End: 04-23-2023 History of Social function [facility] Start: 2020 End: 04-23-2023 Tobacco use panel [facility] National Score (1-100), lower number is lower risk Not on file [facility] Functional Status Date Assessment Result Facility 06-05-2023 Functional Status Standard Safet y Safety level maintained [facility] 06-05-2023 Functional Status [facility] 06-05-2023 Functional Status Rooming in [facility] 06-05-2023 Functional Status [facility] 06-05-2023 Functional Status [facility] 06-05-2023 Functional Status Positioning Repositions self [facility] 06-04-2023 Functional Status [facility] Moderate assi stance [facility] 06-04-2023 Functional Status Home independently [facility] Mental Status Date Assessment Result Facility 06-05-2023 Mental Status Orientation Oriented x 4 [facility] Clinical Notes 08-17-2021 to 12-02-2023 John Villalobos MD - 12/02/2023 9:28 AM EDTTelephone Encounter - Naty Arzola MA - 11/01/2023 10:26 AM EDTTelephone Encounter - Naty Arzola MA - 11/01/2023 8:33 AM EDTPatient Instructions Note Date & Type Note Facility 12-02-2023 Note HNO ID: [id number] Author: JOHN VILLALOBOS MD Service: ? Author Type: Physician Type: Progress Notes Filed: 12/02/2023 09:40 Note Text: Patient presents with: Head Congestion: bilateral ear pressure x 1 week HPI: Feeling congested for over 1 week. Positive symptoms: bilateral ears plugged and decreased hearing, Nasal Congestion, Rhinorrhea, Post nasal drainage, Negative symptoms: Cough, Sore throat, Earache, Fever, OTC: none. Prescribed augmentin 10/31/23 (stopped when influenza B positive). Had gastroenteritis 10/27/23. MEDICATIONS: Current Outpatient Medications Medication Sig SPRINTEC 0.25-35 mg-mcg per tablet pantoprazole DR [...] (Patient not taking: Reported on 12/05/2022) No current facility-administered medications for this visit. ALLERGIES: ALLERGIES No Known Allergies VITALS: BP 112/66 Pulse 84 Temp 36.6 ?C (97.9 ?F) Resp 16 Wt 62 kg (136 lb 11 oz) LMP 08/29/2022 (Approximate) SpO2 99% PHYSICAL EXAM: GEN: mildly ill appearing HEENT: PERRL, EOMI, conjunctiva clear Ears: canals clear. TMs without erythema, bulge, or effusion Sinuses: non-tender frontal sinus, non-tender maxillary sinuses Throat: moist mucous membranes, no erythema, no exudate Neck: supple, no thyromegaly, no lymphadenopathy HEART: regular rate and rhythm, no murmurs LUNGS: clear to auscultation, no wheezes or crackles, no increased WOB ASSESSMENT/PLAN: 1. Eustachian tube dysfunction, bilateral - ICD9: 381.81, ICD10: H69.93 Reassured of normal ear exam. As needed decongestant for symptoms - PSEUDOEPHEDRINE 60 MG TABLET, denies side effects with decongestant use. John Villalobos MD [facility] 12-02-2023 History of Presen t illness Narrative Patient presents with: Head Congestion: bilateral ear pressure x 1 week HPI: Feeling congested for over 1 week. Positive symptoms: bilateral ears plugged and decreased hearing, Nasal Congestion, Rhinorrhea, Post nasal drainage, Negative symptoms: Cough, Sore throat, Earache, Fever, OTC: none. Prescribed augmentin 10/31/23 (stopped when influenza B positive). Had gastroenteritis 10/27/23. MEDICATIONS: Current Outpatient Medications Medication Sig SPRINTEC 0.25-35 mg-mcg per tablet pantoprazole DR [...] (Patient not taking: Reported on 12/05/2022) No current facility-administered medications for this visit. ALLERGIES: ALLERGIES No Known Allergies VITALS: BP 112/66 Pulse 84 Temp 36.6 C (97.9 F) Resp 16 Wt 62 kg (136 lb 11 oz) LMP 08/29/2022 (Approximate) SpO2 99% PHYSICAL EXAM: GEN: mildly ill appearing HEENT: PERRL, EOMI, conjunctiva clear Ears: canals clear. TMs without erythema, bulge, or effusion Sinuses: non-tender frontal sinus, non-tender maxillary sinuses Throat: moist mucous membranes, no erythema, no exudate Neck: supple, no thyromegaly, no lymphadenopathy HEART: regular rate and rhythm, no murmurs LUNGS: clear to auscultation, no wheezes or crackles, no increased WOB ASSESSMENT/PLAN: 1. Eustachian tube dysfunction, bilateral - ICD9: 381.81, ICD10: H69.93 Reassured of normal ear exam. As needed decongestant for symptoms - PSEUDOEPHEDRINE 60 MG TABLET, denies side effects with decongestant use. John Villalobos MD documented in this encounter [facility] 11-01-2023 Miscellaneous Notes Patient given results and verbalized understanding of instructions given. Naty Arzola MA Left message for patient to return call. Naty Arzola MA Please call patient and let her know that she tested positive for influenza B. She is out of the window for treatment with Tamiflu. documented in this encounter [facility] 10-31-2023 Note HNO ID: [id number] Author: LUNA HOWARD APRN.BATTERY PLATE ASSEMBLER Service: ? Author Type: Nurse Practitioner Type: [...] - Discussed expected course of illness Luna Howard APRN.BATTERY PLATE ASSEMBLER [facility] 10-31-2023 Instructions Luna Howard APRN.CNP - 10/31/2023 9:16 AM EST ASSESSMENT/PLAN: [...] - Discussed expected course of illness Luna Howard APRN.CNP Treatment for Viral Upper Respiratory Tract [...] fluids help open respiratory and sinus passages [place] [facility] [place] may offer relief of nasal and head [...] rather than better documented in this encounter [facility] 10-31-2023 History of Presen t illness Narrative [...] - Discussed expected course of illness Luna Howard APRN.BATTERY PLATE ASSEMBLER documented in this encounter [facility] 10-27-2023 Note HNO ID: [id number] Author: KERRIE TATE APRN.BATTERY PLATE ASSEMBLER Service: ? Author Type: Nurse Practitioner Type: [...] discussed F/u for continued/worsening s/s. Kerrie Tate APRN.[facility] 10-05-2023 Note HNO ID: [id number] Author: NOE PATEL PA Service: ? Author Type: Physician Middle School Coach Type: Progress Notes Filed: 10/05/2023 09:26 Note Text: This note was created using Kweliariter. Lai Rosario is a 28 year old [...] detail warranting prompt ER evaluation. URSULA Guillen [facility] 10-05-2023 History of Presen t illness Narrative This note was created using MeeDoc. Subjective Maryuri Rosario is a 28 year old female. [...] evaluation. URSULA Guillen documented in this encounter [facility] 07-23-2023 Note HNO ID: [id number] Author: Maira Kramer APRN.BATTERY PLATE ASSEMBLER Service: ? Author Type: Nurse Practitioner Type: Progress Notes Filed: 07/23/2023 12:20 PM Note Text: This note was created using MeeDoc. Lai Rosario is a 27 year old female. 27 year old female with no PMH presents for illness. Acute onset over a week ago +sinus pressure +sore throat +post nasal drainage +headache Denies cough Denies body aches Denies tobacco usage Has used Sudafed. The history is provided by the patient. No institutional nutrition consultant was used. Sinus Problem This is [...] Tenderness: There i (more content not included)... [facility] 07-23-2023 History of Presen t illness Narrative This note was created using MeeDoc. Subjective Maryuri Rosario is a 27 year old female. 27 year old female with no PMH presents for illness. Acute onset over a week ago +sinus pressure +sore throat +post nasal drainage +headache Denies cough Denies body aches Denies tobacco usage Has used Sudafed. The history is provided by the patient. No institutional nutrition consultant was used. Sinus Problem This is [...] 3-5 days if symptoms persist or worsen. Maira Kramer APRN.BATTERY PLATE ASSEMBLER documented in this encounter [facility] 06-05-2023 Evaluation + Plan note Extrac snow from: Title:Clinical Document Author:SHASTA JANE MD Date:06/05/23 Subjective Comfortable with oral Motrin Lochia small. Baby is eating well per bottle . Objective Looks very well. Independent in room. CVS: RRR Lungs: CTA B Abdomen: Soft, uterus firm at U- 2 Extremities: Nontender with no edema VITALS OcxhbrZaylZWDtmphKJEwW9ZNO4ByqkUi(kg) 06/05 08:3837.1--9316----06/04 72.7 06/04 23:4136.6--8218---- 06/04 20:2137.1 06/04 16:03----[id number]-- 06/04 15:46----3538753-- 24 Hr Tmax: 37.1 at 06/05 08:38 [...] 06/04/23 15:50:00 EDT Problems (7) Back pain (136728219) Depression (888248754) Diarrhea (933112017) Encounter for supervision of normal in multigravida in third trimester (590524666) (022829704) (spontaneous vaginal delivery) (421822096) Vomiting (1189358837) ASSESSMENT/PLAN: PPD #1 after . Doing well and would like to go home. Good for discharge Extracted from: Title:Clinical Document Author:ASHKAN WALTERS MD Date:06/04/23 [facility] ADMISSION HISTORY AN D PHYSICIAL CHIEF COMPLAINT: [...] No bleeding. ACTIVE PROBLEMS: (6) Back pain (249321559) Depression (788794992) Diarrhea (793578325) Encounter for supervision of normal in multigravida in third trimester (520635508) (165072818) Vomiting (6874888428) MEDICATIONS: Active Inpt Meds: None Active PRN [...] lidocaine (Xylocaine HCl 1% injectable solution) Start: 06/04/23:54:00 EDT, Dose = 20 mg, = 2 mL, Perineum, AsDirected, PRN, to perineal sutures, 1 dose(s), Stop: Limited # of times, 06/04/23 654:00 EDT methylergonovine (Methergine) Start: 06/04/2354:00 EDT, Dose = 0.2 mg, = 1 mL, Intramuscular, Once, PRN, Other (see order comments), 06/04/2354:00 EDT miSOPROStol (Cytotec) Start: 06/04/2354:00 EDT, Dose = 1,000 mcg, = 5 tab(s), Rectal, Once, PRN, Other (see order comments), 0, 06/04/23:54:00 EDT nalbuphine (Nubain) Start: 06/04/23 6:54:00 EDT, Dose = 10 mg, = 1 mL, IV Push, q2h, PRN, Pain, 06/04/23:54:00 EDT ondansetron (Zofran) Start: 06/04/2354:00 EDT, Dose = 4 mg, = 2 mL, IV Push, q4h, PRN, Nausea, 06/04/2354:00 EDT oxytocin (Pitocin) Start: 06/04/23:54:00 EDT, Dose = 20 unit(s), = 2 [...] 300 mL/hr, Infuse over: 20 minute(s), 0, 06/04/23 6:54:00 EDT One Time Meds: None Active IV [...] drug use. Stable home. PHYSICAL EXAM: VITALS: YueqxlYjseYYSvoevADXoK6JZR4JdpqEc(kg) 06/04 08:0536.5--9316----06/04 72.7 06/04 06:1536.7--03123---- 24 Hr Tmax: 36.7 at 06/04 06:15 [...] 0802 Hct33.7L Hgb11.7L MCH31.0 MCHC34.9 MCV88.9 MPV8.5 Frhymhzd998 RBC3.78L RDW13.3 WBC6.4 Lymphocyte %21.7 Monocyte %7.9 Neutrophil %69.7 Eosinophil %0.4 Basophil %0.3 Neutrophil, Absolute4.4 Lymphocyte, Absolute1.4 Monocyte, Absolute0.5 Eosinophil, Absolute0.0 Basophil, Absolute0.0 06/04 06 Rubella, ExternSee Flowsheet Rubella Date Performed1:[id number]:0.330972:0:0 HIV Antibodies,See Flowsheet Group B Strep,See Flowsheet Hepatitis B, ExSee Flowsheet Hepatitis B Date Performed1:[id number]:0.207193:0:0 RPR, ExternalSee Flowsheet Group B Strep Date Performed1:[id number]:0.358807:0:0 DIAGNOSTICS: Reassuring category 1 heart rate tracing. No contractions on toco monitor IMPRESSION: Uncomplicated term admitted for elective induction of labor. Favorable cervix. PLAN: Plan for Pitocin induction of labor. Artificial rupture membranes when appropriate. Epidural if desired. Future Scheduled Tests Laboratory* Glucose 1 Hour Challenge 03/16/23 * Complete Blood Count 03/16/23 [facility] 10-12-2023 Hospital Discharge instructions Patient Education 06/04/2023 [...] Follow these instructions at home: Medicines Take ekkx-uca-ifmihzl and prescription medicines only as told by [...] 12/05/2005 Document Revised: 04/29/2019 Document Reviewed: 08/11/2017 [employer] Patient Education 2020 [employer]. 06/04/2023 15:11:39 7b- Depression and Blues (05/2020)(CUSTOM) [...] psychosis. Often, a screening tool called the [place] Depression Scale is used to diagnose depression [...] music. Avoid alcohol. Ask for help with ese teacher, cooking, grocery shopping, or running errands as needed. Do nottry to do everything. Talk to people close to you about how you are feeling. Get support from your partner, family members, and friends. Try to stay positive in how you think. Think about the things you are grateful for. Do not spend a lot of time alone. Only take rwxa-kaz-zjdlqkl or prescription medicine as directed by your [...] not doing well or get worse. Resource: ExitCare Patient Information 2015 [employer] [facility]. This information is not intended to replace [...] work with your health care provider or sales development consultant. If you are not : ?Avoid [...] about methods of control (contraception). Medicines Take ygjy-sqn-vaawbvn and prescription medicines only as told by [...] 06/06/2008 Document Revised: 08/13/2018 Document Reviewed: 05/24/2018 [employer] Patient Education 2020 [employer]. Follow Up Care 06/04/2023 05:58:49 With:ASHKAN WALTERS MD Address: [address] [place] [address] [facility] [place] [address]- [phone] When: Unknown Comments:Please schedule a chechup for three weeks from delivery [facility] 10-12-2023 Note Obstetrics progress note: Maryuri is now feeling some pelvic pressure. Cervix is examined to be 9 cm 90% effaced and 0 station bloody show is present heart rate tracing overall category 1. Like to be pushing soon. Digitally Signed by ASHKAN WALTERS MD on 06/04/2023 03:08 PM [facility]10-12-2023 Note Progress note: Subjective: Comfortable lying in bed after epidural placement. No significant nausea. Objective: Afebrile vital signs stable heart rate tracing category 1. Contractions every 3 minutes on toco monitor. Cervical exam 3 cm 50% posterior. Artificial rupture membranes performed withclear fluid noted. Plan: Continue Pitocin to effect adequate contractions expect . Digitally Signed by ASHKAN WALTERS MD on 06/04/2023 12:08 PM [facility]10-12-2023 Anesthesiology Consult note Patient: MARYURI ROSARIO Age: [...] Problem list: Medical Depression / SNOMED CT 827267066 / Confirmed Encounter for supervision of normal in multigravida in third trimester / SNOMED CT 845053730 / Confirmed / SNOMED CT 872522881 / Confirmed, Active Problems (6) Back pain Depression Diarrhea Encounter for supervision of normal in multigravida in third trimester Vomiting Histories Past Medical History: Active Depression (479363657) Resolved (117479125): Onset on 12/28/2014 at 19 years. Resolved on 10/09/2015 at 20 years. Possible , not confirmed ([id number]): Resolved. Comments: 01/27/2015 EDT 14:03 EDT - SYSTEM System added from documentation. Status documented as Possible on Admission Encounter for care of primigravida in second trimester, antepartum (18933850): Resolved. Encounter for care of primigravida in third trimester, antepartum (75518046): Resolved. Encounter for care in third trimester of first (15336067): Resolved. Family History: Anxiety Mother Drug abuse Father Depression Mother Procedure history: Wrist (21410030). Social History Social & Psychosocial Habits Alcohol [...] Oral36.8 DegC (JUN 04 10:01) Heart Rate Vtrurevle02 bpm (JUN 04 11:15) Resp Rate 18 br/min (JUN 04 11:15) FFP479 mmHg (JUN 04 11:15) DBP60 mmHg (JUN 04 11:15) BMI30.26 (JUN 04 06:04) Measurements from flowsheet : Measurements 06/04/2023 6:04 EDT Height 155 cm Admission Weight 72.7 kg [place] Body Weight 47.85 kg BSA Admission 1.72 [...] with support Epidural Placed By CHRISTIANNE CERVANTES Epidural Test Dose Time 06/04/2023 11:08 Epidural [...] LR Premix Diluent mL 06/04/2023 8:27 EDT [place] History and Physical 06/04/2023 8:14 EDT oxytocin [...] Height 155 cm Admission Weight 72.7 kg [place] Body Weight 47.85 kg BSA Admission 1.72 [...] Baby For Adoption No Surrogate No Discharge Physician orin wen [facility] Participant Yes Safe Sleep Environment for [...] No Weight Loss No Preferred Spoken Language [place]se Preferred Written Language [place]se Teaching Evaluation Verbalizes/Nonverbally indicates understanding Safety Brochure Information Reviewed Unable to complete Karly Welcome Video Viewed Patient refused Chief Complaint IOL Mode of Arrival Ambulatory Information Given by Patient Patient's Current Physicians preeti Emergency Contact Number maribel samayoa [phone] Belongings At Bedside Cell phone, Senior Java Ui Developer, Clari, Pt participated in reconciliation Personal Home Medications [...] History OB (Modified) . Assessment and Plan [place] Society of Anesthesiologists (ASA) physical status classification: Class II. Anesthetic Preoperative Plan Anesthetic technique: Epidural. Regional: Epidural. Postoperative pain management: Per surgeon. Risks discussed: nausea, vomiting, headache, hypotension, allergic reaction, serious complications. Informed consent: signed by patient. Digitally Signed by CHRISTIANNE CERVANTES on 06/04/2023 11:21 AM [facility]10-12-2023 Note [facility] ADMISSION HISTORY AND PHYSICIAL CHIEF COMPLAINT: 2 [...] No bleeding. ACTIVE PROBLEMS: (6) Back pain (531871951) Depression (527596445) Diarrhea (729614219) Encounter for supervision of normal in multigravida in third trimester (145098186) (613672050) Vomiting (7720461334) MEDICATIONS: Active Inpt Meds: None Active PRN [...] comments), 06/04/23 6:54:00 EDT terbutaline (Brethine) Start: 06/04/2355:00 EDT, Dose = 0.25 mg, = 0.25 mL, Subcutaneous, AsDirected, PRN, Control symptoms, directed by physician for episode of tachysystole resulting in prolonged bradycardia (lasting greater than 3 minutes) and/or late decelerati... tranexamic acid (tranexamic acid 1 g / 100 mL 0.7% NaCl PMX) Start: 06/04/2354:00 EDT, Dose = 1 gram(s), = 100 [...] drug use. Stable home. PHYSICAL EXAM: VITALS: KnbmobGkmfHNCjiygKIIrS5FRO3ZwooTo(kg) 06/04 08:0536.5--9316----06/04 72.7 06/04 06:1536.7--52848---- 24 Hr Tmax: 36.7 at 06/04 06:15 [...] 0802 Hct33.7L Hgb11.7L MCH31.0 MCHC34.9 MCV88.9 MPV8.5 Qeruqyfk091 RBC3.78L RDW13.3 WBC6.4 Lymphocyte %21.7 Monocyte %7.9 Neutrophil %69.7 Eosinophil %0.4 Basophil %0.3 Neutrophil, Absolute4.4 Lymphocyte, Absolute1.4 Monocyte, Absolute0.5 Eosinophil, Absolute0.0 Basophil, Absolute0.0 06/04 604 Rubella, ExternSee Flowsheet Rubella Date Performed1:[id number]:0.873074:0:0 HIV Antibodies,See Flowsheet Group B Strep,See Flowsheet Hepatitis B, ExSee Flowsheet Hepatitis B Date Performed1:[id number]:0.509937:0:0 RPR, ExternalSee Flowsheet Group B Strep Date Performed1:[id number]:0.511472:0:0 DIAGNOSTICS: Reassuring category 1 heart rate tracing. No contractions on toco monitor IMPRESSION: Uncomplicated term admitted for elective induction of labor. Favorable cervix. PLAN: Plan for Pitocin induction of labor. Artificial rupture membranes when appropriate. Epidural if desired. Digitally Signed by ASHKAN WALTERS MD on 06/04/2023 08:30 AM [facility] [id number] NoteHNO ID: [id number] Author: Quinn Lopez APRN.BATTERY PLATE ASSEMBLER Service: ? Author Type: Nurse Practitioner Type: Progress Notes Filed: 04/23/2023 9:11 AM Note Text: Subjective HPI 31-week female presents to urgent care with chief complaint of upper respiratory tract like infection. Duration of symptoms 3 days. Associated symptoms sore throat, nasal congestion, nasal discharge and nonproductive cough. Patient denies the use of any cihm-zgi-ubrslce medications or home remedies for symptom management. [...] the patient is st (more content not included)...[facility]08-31-2023 History of Present illness Narrative* Quinn Lopez, CHIO.BATTERY PLATE ASSEMBLER - 04/23/2023 8:50 AM EDT Subjective HPI 31-week female presents to urgent care with chief complaint of upper respiratory tract like infection. Duration of symptoms 3 days. Associated symptoms sore throat, nasal congestion, nasal discharge and nonproductive cough. Patient denies the use of any dzwd-mcp-ectonqt medications or homeremedies for symptom management. Denies [...] of care. This note was generated using [employer] software. It may contain errors in wording, punctuation, or spelling. Quinn Lopez APRN.DISHA [facility] NoteHNO ID: [id number] Author: Kerrie Tate APRN.DISHA Service: ? Author Type: Nurse Practitioner Type: Progress Notes Filed: 01/12/2023 12:30 PM Note Text: Patient tri[facility] at [facility]. Here today with worsening sob, no uri symptoms. 18 weeks . fur operator instructed to go to ER. I will refer to ER. Patient in no apparent distress at time of triage.[facility]04-14-2023 Miscellaneous Notes* Addendum Note - Maira Kramer APRN.CNP - 12/05/2022 12:27 PM EDTAddended by: MAIRA KRAMER on: 12/05/2022 12:27 PM Modules accepted: Orders documented in this encounter[facility]-2023 NoteHNO ID: [id number] Author: Maira Kramer APRN.BATTERY PLATE ASSEMBLER Service: ? Author Type: Nurse Practitioner Type: Progress Notes Filed: 12/05/2022 9:59 AM Note Text: This note was created using Kweliariter. Lai Rosario is a 27 year old female. 27 year old female with no PMH presents for illness. Acute onset 2 days ago +cough +nasal congestion +sinus pressure +ear pressure and pain Denies N/V/D Denies fever or chills Denies hemoptysis. 13 weeks OB () Has used cough drops Denies tobacco usage. The history is provided by the patient. No institutional nutrition consultant was used. Cough This is a [...] takes less jamshid (more content not included)... [facility]04-14-2023 History of Present illness Narrative* Maira Kramer, INSPECTOR RAW QUARTZ.BATTERY PLATE ASSEMBLER - 12/05/2022 9:46 AM EDT This note was created using MeeDoc. Lai Rosario is a 27 year old female. 27 year old female with no PMH presents for illness. Acute onset 2 days ago +cough +nasal congestion +sinus pressure +ear pressure and pain Denies N/V/D Denies fever or chills Denies hemoptysis. 13 weeks OB () Has used cough drops Denies tobacco usage. The history is provided by the patient. No institutional nutrition consultant was used. Cough This is a [...] - Supportive care with fluids and rest Maira Kramer APRN.BATTERY PLATE ASSEMBLER [facility] History of Present illness Narrative* John Villalobos [...] COVID John Villalobos MD documented [facility] History of Present illness Narrative* John Villalobos [...] month. John Villalobos MD documented in [facility] Hospital Discharge instructions Patient Education 10/19/2021 14:11:38 [...] hot shower. Use medicines Aspirin or other mang-ust-tvzzuqj pain medicines, such as ibuprofen and acetaminophen, [...] call the worst headache youhave ever had. [phone] [employer]. [address] [place], [place] [address]. All rights reserved. This information is not intended as a substitute for professional medical care. Always follow yourhealthcare professional's instructions. Follow Up Care 10/19/2021 13:54:01 With:EMILIANO GONZALEZ APRN-BATTERY PLATE ASSEMBLER Address: [phone] When:2-4 days [facility] 12-25-2021 Hospital Discharge instructions Patient Education 08/17/2021 [...] for heart disease or after a stroke) Rsyt-qdo-rnkavzj medicines for diarrhea, nausea, and vomiting are generally OK unless you have bleeding, fever, or severe abdominal pain. General care If symptoms are severe, rest at home for the next 24 hours, or until you are feeling better. Washing your hands with soap and water, or using alcohol-based hand outpatient admitting clerk is the best way to stop the [...] after. Wash your hands or use alcohol-based outpatient admitting clerk after using cutting boards, countertops, and knives that have been in contact with raw food. Dry your hands with a single use towel. Keep uncooked meats away from cooked and bghtb-eh-clw foods. Follow-up care Follow up with your [...] every 6 hours), or very dark urine [phone] [employer]. [address] [place] [address], [place] [address]. All rights reserved. This information is not intended as a substitute for professional medical care. Always follow yourhealthcare professional's instructions. Follow Up Care 08/16/2021 23:33:25 With:EMILIANO GONZALEZ APRN-BATTERY PLATE ASSEMBLER Address: [address] [place] [address] [place] [address] [phone] When:2-4 days [facility] Evaluation + Plan note No data available for this section [facility] Evaluation + Plan note Future Appointments Appointment Date:04/06/2023 11:00:00 AM Scheduled Provider:ASHKAN WALTERS MD Location:[facility] Appointment Type:[facility] OB Routine Follow Up Diagnostic Tests Pending * Rapid Plasma Reagin Test 03/23/23 Future Scheduled Tests Laboratory* Glucose 1 Hour Challenge 03/16/23 * Rapid Plasma Reagin Test 03/16/23 * Complete Blood Count 03/16/23 [facility] Evaluation note* Diagnosis URI, acute- Primary Acute upper respiratory infections of unspecified site [facility] Diagnosis Gastroenteritis- Primary Other and unspecified noninfectious gastroenteritis and colitis [facility] Diagnosis Bilateral otitis media, unspecified otitis media type- Primary URI, acute Acute upper respiratory infections of unspecified site [facility] Diagnosis URI, acute- Primary Acute upper respiratory infections of unspecified site [facility]* Diagnosis Rhinosinusitis- Primary Unspecified sinusitis (chronic) [facility]* Diagnosis Strep pharyngitis- Primary Streptococcal sore throat Sore throat Acute pharyngitis [facility] Diagnosis Sore throat- Primary Acute pharyngitis Bacterial sinusitis Unspecified sinusitis (chronic) Fever, unspecified fever cause [facility] Eustachian tube dysfunction, bilateral- Primary [facility] No data available for this section [facility] Progress note No data available for this section [facility] Health Concerns Infection Onset Date Last Indicated [...] or prosecute any alcohol or drug abuse patient.[facility] the event this information is protected by the Federal Confidentiality of Alcohol and Drug Abuse Patient Records regulations: The Federal rules restrict any use of the information to criminally investigate or prosecute any alcohol or drug abuse patient.[facility] the event this information is protected by the Federal Confidentiality of Alcohol and Drug Abuse Patient Records regulations: The Federal rules restrict any use of the information to criminally investigate or prosecute any alcohol or drug abuse patient.[facility] the event this information is protected by the Federal Confidentiality of Alcohol and Drug Abuse Patient Records regulations: The Federal rules restrict any use of the information to criminally investigate or prosecute any alcohol or drug abuse patient.[facility] the event this information is protected by the Federal Confidentiality of Alcohol and Drug Abuse Patient Records regulations: The Federal rules restrict any use of the information to criminally investigate or prosecute any alcohol or drug abuse patient.[facility] CampusIn the event this information is protected by the Federal Confidentiality of Alcohol and Drug Abuse Patient Records regulations: The Federal rules restrict any use of the information to criminally investigate or prosecute any alcohol or drug abuse patient.[facility] CampusIn the event this information is protected by the Federal Confidentiality of Alcohol and Drug Abuse Patient Records regulations: The Federal rules restrict any use of the information to criminally investigate or prosecute any alcohol or drug abuse patient.[facility] CampusIn the event this information is protected by the Federal Confidentiality of Alcohol and Drug Abuse Patient Records regulations: The Federal rules restrict any use of the information to criminally investigate or prosecute any alcohol or drug abuse patient.[facility] CampusIn the event this information is protected by the Federal Confidentiality of Alcohol and Drug Abuse Patient Records regulations: The Federal rules restrict any use of the information to criminally investigate or prosecute any alcohol or drug abuse patient.[facility] Reason for Visit (unrecogniz ed section and content) Reason Comments Ear Pain R ear pain, nasal co ngestion x1 week Reason Comments Cough Cough, nausea, diarr hea [...] fever x 2 days Reason Comments Results Reason Comments Head Congestion bilateral ear pressu re x 1 week Care Teams (unrecognized sec tion and content) Telephone Coin Box Collector Relationship Specialty Start Date End Date Krystle Peng CNP [address] [place] [phone] PCP - General Family Practice 05/23/21 Telephone Coin Box Collector Relationship Specialty Start Date End Date Krystle Peng CNP [id number] PCP - General Family Medicine 05/23/21 Telephone Coin Box Collector Relationship Specialty Start Date End Date Krystle Peng CNP [address] [place] [phone] (Work) PCP - General Family Medicine 05/23/21 Telephone Coin Box Collector Relationship Specialty Start Date End Date Krystle Peng CNP [address] [place], [place] [phone] PCP - General Family Medicine 05/23/21 Telephone Coin Box Collector Relationship Specialty Start Date End Date Krystle Peng CNP [address] [place], [place] [phone] (Work) PCP - General Family Medicine 05/23/21 Telephone Coin Box Collector Relationship Specialty Start Date End Date Krystle Peng CNP [address] [place], [place] [phone] (Work) PCP - General Family Medicine 05/23/21 Telephone Coin Box Collector Relationship Specialty Start Date End Date Krystle Peng CNP [address] [place] [phone] (Work) PCP - General Family Medicine 05/23/21 Telephone Coin Box Collector Relationship Specialty Start Date End Date Krystle Peng CNP [address] [place] [phone] PCP - General Family Medicine 05/23/21 INFORMATION SOURCE (unrecogn ized section and content) DATE CREATED AUTHOR 06/10/2023 [facility] ([place]) DATE CREATED AUTHOR AUTHOR'S YAMILE ATJOHNATHON 12/03/2023 [facility] FOR RECORDS PERTAINING TO PATIENTS WHO [...] BE BASED ON THE PRIMARY CLINICAL RECORDS. [employer] [facility]. provides no warranty or guarantee of the accuracy or completeness of information in this document.
[2024-06-15 22:52] VITALS: PULSE 94; RESP 18; O2SAT 97
== END 2024-06-15 22:54 | disposition home or self-care (01) ==
PROVIDERS: Emergency Provider Emergency Medicine; Visit Provider Emergency Medicine
DX: G43.009 Migraine without aura, not intractable, without status migrainosus (principal); R03.0 Elevated blood-pressure reading, without diagnosis of hypertension; Z87.891 Personal history of nicotine dependence; E78.00 Pure hypercholesterolemia, unspecified; K21.9 Gastro-esophageal reflux disease without esophagitis; J45.909 Unspecified asthma, uncomplicated; R11.2 Nausea with vomiting, unspecified
CPT/HCPCS: 96361; 96374; 96375; 99282; J7030; A4216

== ENCOUNTER 2024-11-02 16:19 | Emergency (ER) | payer MEDICAID, SELFPAY ==
[2024-11-02 16:20] VITALS: BP 112/78; PULSE 89; RESP 16; TEMP 36.7; O2SAT 100; BMI 21.9
--- NOTE | 2024-11-02 17:23 | ED.RN ---
PTS FAMILY IS UPSET BECAUSE PT HAS NOT BEEN TAKEN BACK INTO ER YET. EXPLAINED THAT SHE WILL GET KAM SOON WE CAN. ALSO EXPLAINED THAT THE DEGREE OF SICKNESS/COMPLAINT IS WHAT DECIDES WHO GOES BACK FIRST. HE STATED SHE CAME IN BY SQUAD AND IS IN A WC. EXPLAINED THAT IT STILL IS BASED ON THE REASON SOMEONE IS HERE. HE THEN STATED HE SAW SOMEONE ELSE GO BACK THAT CAME IN AFTER HERE. AGAIN ATTEMPTED TO EXPLAIN THE ACUITY AND DECISIONS BEHIND WHO GOES BACK FIRST. HE THEN STATES THAT'S CRAP SHE IS IN A WC AND BROUGHT IN BY SQUAD AND IS WAITING. EXPLAINED THAT SOMETIMES PEOPLE HAVING A HEART ATTACK WALK IN... HE THEN STATED HE UNDERSTOOD.
== END 2024-11-02 18:00 | disposition left against medical advice (07) ==
LOC: ED 18:11
DX: Z53.21 Procedure and treatment not carried out due to patient leaving prior to being seen by health care provider (principal)
CPT/HCPCS: 99282

== ENCOUNTER → 2024-12-28 | Outpatient (CLI) | payer MEDICAID, SELFPAY ==
--- NOTE | 2024-12-28 14:00 | RAD_ITS ---
PROCEDURE: HAND MIN 3 VIEWS 12/28/2024 REASON FOR EXAM: RIGHT CARPAL TUNNEL SYNDROME TECHNIQUE: 3 view(s) of the right hand COMPARISON: None available FINDINGS: No fracture or dislocation. The joint spaces appear within limits. The osseous structures appear within limits. Soft tissues appear within limits. RAD/Hand Min 3 Views IMPRESSION: The study appears within limits. Reading Location: [id number]
== END | disposition home or self-care (01) ==
LOC: RAD 13:54
PROVIDERS: Referring Provider Surgery Plastic and Reconstructive Surgery; Visit Provider Surgery Plastic and Reconstructive Surgery
DX: G56.01 Carpal tunnel syndrome, right upper limb (principal)
CPT/HCPCS: 73130

== ENCOUNTER → 2025-01-25 | Outpatient (CLI) | payer MEDICAID, SELFPAY ==
--- NOTE | 2025-01-25 14:17 | NEURO ---
NCS and/or EMG Patient Report Ordering Doctor: Sam Armijo DATE OF SERVICE: 01/25/25 Maryuri presents with complaints of right sided wrist pain radiating to the elbow. 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 Electrodiagnostic findings: Right median motor nerve demonstrates normal distal latency, amplitude and conduction velocity. Normal right ulnar motor response, including conduction across the elbow. Normal median and ulnar F?waves. Sensory responses are within normal limits. Needle EMG testing was performed in the right upper limb. 1+ fibrillations noted in the first dorsal interosseous, right triceps and right lower cervical paraspinals. Motor unit action potentials with normal amplitude and duration. Electrodiagnostic impression: This is an abnormal study of the right upper limb. 1. Electrodiagnostic findings are suggestive of an acute right C8 radiculopathy. Recommend correlation with cervical spine imaging to evaluate for possible disc herniation. 2. No electrodiagnostic evidence is noted for peripheral neuropathy, including carpal tunnel syndrome. Multi Select Codes Neurology Neurology Interp Codes: 17393-88 Musc test done w/n test comp (interp) and 14876-47 Nrv cndj test 7-8 studies (interp)
== END | disposition home or self-care (01) ==
LOC: PSN 13:27
PROVIDERS: Referring Provider Surgery Plastic and Reconstructive Surgery; Visit Provider Surgery Plastic and Reconstructive Surgery
DX: G56.01 Carpal tunnel syndrome, right upper limb (principal); S54.2 Injury of radial nerve at forearm level; X58.XXXA Exposure to other specified factors, initial encounter
CPT/HCPCS: 95886; 95910

== ENCOUNTER → 2025-03-03 | Outpatient (CLI) | payer MEDICAID, SELFPAY ==
--- NOTE | 2025-03-03 12:23 | MRI_ITS ---
PROCEDURE: SPINE CERVICAL (ROUTINE) 03/03/2025 REASON FOR EXAM: PAIN, RADICULOPATHY, DEXTERITY ISSUES TECHNIQUE: SPINE CERVICAL (ROUTINE) Multiplanar and multisequence images were obtained without IV contrast administration. COMPARISON: Cervical spine x-ray, 02/10/2025 FINDINGS: Vertebrae: Cervical vertebral body heights are preserved. Bone marrow signal is unremarkable. Alignment: Normal. No spondylolisthesis. Spinal Cord: Cervical spinal cord is of normal size and signal intensities. Structures at the foramen magnum are unremarkable. C2-3: Mild degeneration. No disc protrusion. No facet arthropathy. No central canal stenosis, lateral recess stenosis or foraminal narrowing. C3-4: There is a broad-based central disc protrusion. There is mild compression of the thecal sac. There is no central canal stenosis. There is no uncinate joint arthropathy. There is no facet arthropathy. There is no lateral recess stenosis or foraminal narrowing. C4-5: There is a broad-based central disc protrusion. There is mild compression of the thecal sac. There is no central canal stenosis. There is no uncinate joint arthropathy. There is no facet arthropathy. There is no lateral recess stenosis or foraminal narrowing. C5-6: There is a broad-based central disc protrusion. There is mild compression of the thecal sac. There is no central canal stenosis. There is no uncinate joint arthropathy. There is no facet arthropathy. There is no lateral recess stenosis or foraminal narrowing. C6-7: There is a broad-based central disc protrusion. There is mild compression of the thecal sac. There is no central canal stenosis. There is no uncinate joint arthropathy. There is no facet arthropathy. There is no lateral recess stenosis or foraminal narrowing. C7-T1: Mild degeneration. No disc protrusion. No facet arthropathy. No central canal stenosis, lateral recess stenosis or foraminal narrowing. The paravertebral soft tissues are normal. MRI/Spine Cervical (Routine) IMPRESSION: Mild disc degeneration throughout the cervical spine. There are disc protrusio ns without central canal stenosis, C3-4 through C7-T1. Reading Location: [id number]
== END | disposition home or self-care (01) ==
LOC: MRI 12:14
PROVIDERS: Referring Provider Student in an Organized Health Care Education/Training Program; Visit Provider Student in an Organized Health Care Education/Training Program
DX: M54.12 Radiculopathy, cervical region (principal); G95.9 Disease of spinal cord, unspecified
CPT/HCPCS: 72141